=== PATIENT | male | born 1945 | race Caucasian/White ===

== ENCOUNTER 2016-06-16 10:38 | Outpatient (CLI) | payer MEDICARE, OTHER | END 2016-06-16 10:39 | disposition home or self-care (01) | DX: C61 Malignant neoplasm of prostate (principal) | CPT/HCPCS: 78306; A9503 ==

== ENCOUNTER 2016-08-18 16:45 | Outpatient (CLI) | payer MEDICARE, OTHER | END 2016-08-18 16:46 | disposition home or self-care (01) | LOC: LAB.R 16:45 | PROVIDERS: ATTEND Podiatrist | DX: L03.032 Cellulitis of left toe (principal) | CPT/HCPCS: 87070; 87077; 87205 ==

== ENCOUNTER 2016-11-08 09:42 | Emergency (ER) | payer MEDICARE, OTHER ==
[2016-11-08] MEDS ORDERED: ACETAMINOPHEN 325 MG TABLET PO STA (11:04)
[2016-11-08] MEDS ORDERED: LIDOCAINE-EPINEPH-TETRACAINE 3 ML SYRINGE TOP STA (11:04)
--- NOTE | 2016-11-08 11:08 | XRAY Preliminary Report ---
Exam: XR Chest 2 View PA/LAT IMPRESSION: No acute cardiopulmonary abnormality. [facility] SITE ID: [id number]
--- NOTE | 2016-11-08 11:11 | XRAY Report ---
EXAM: CHEST RADIOGRAPHY EXAM DATE: 11/08/2016 10:16 AM. CLINICAL HISTORY: Left chest wall pain after playing golf. COMPARISON: None available. TECHNIQUE: 2 views. FINDINGS: Lungs/Pleura: There is minimal left basilar atelectasis. There is mild asymmetric elevation of the ri ght hemidiaphragm. No pneumothorax or pleural effusion. Mediastinum: Heart and mediastinal contours are unremarkable. There is atherosclerotic calcification in the aortic arch. Other: No acute skeletal abnormalities are appreciated. IMPRESSION: No acute cardiopulmonary abnormality. [facility] Referring Provider Line: [phone] SITE ID: [id number]
[2016-11-08] MEDS ORDERED: ACETAMINOPHEN 325 MG TABLET PO ONE (11:16)
[2016-11-08] MEDS ORDERED: LIDOCAINE-EPINEPH-TETRACAINE 3 ML SYRINGE TOP ONE (11:16)
[2016-11-08] MEDS ORDERED: LIDOCAINE PATCH 5% TOP STA (12:12)
[2016-11-08] MEDS ORDERED: LIDOCAINE PATCH 5% TOP ONE (12:19)
--- NOTE | 2016-11-08 12:37 | ED Physician Documentation ---
History of Present Illness - Stated complaint Stated Complaint: RIB PX,LT ARM - Chief complaint Chief Complaint: General - Additonal information Additional information: hx from pt 71 male on lupron while swinging his golf club last week hel felt focal pain to his ant left chest wall mid clavicular 5th ic pain has contiunued last night/ this AM pain very severe and he could not draw a breath and the pain radiated to his left arm so he wanted to be sure he was not having a heart attack Review of Systems Constitutional: denies: Fever, Chills Cardiac: reports: Chest pain / pressure Respiratory: denies: Dyspnea Musculoskeletal: reports: Extremity pain Endocrine: denies: Easy bruising / bleeding Immunocompromised: denies: Immunocompromised PD PAST MEDICAL HISTORY - Past Medical History Other Past Medical History: metastatic prostatic cancer, - Past Surgical History Past Surgical History: Yes - Present Medications Home Medications: Ambulatory Orders Medication Instructions Recorded Confirmed Ketoconazole 400 mg PO TID 09/03/15 11/08/16 Leuprolide [Lupron] 45 mg IM Q180D 09/03/15 11/08/16 Hydrocortisone 10 mg PO DAILY PM 01/14/16 11/08/16 Hydrocortisone 20 mg PO DAILY MDD In the morning 01/14/16 11/08/16 Lidocaine Patch 5% [Lidoderm Patch] 1 each TOP DAILY PRN #10 patch 11/08/16 - Allergies Allergies/Adverse Reactions: Allergies Allergy/AdvReac Type Severity Reaction Status Date / Time No Known Drug Allergies Allergy Verified 05/26/16 11:30 - Social History Does the pt smoke?: No Smoking Status: Never smoker Does the pt drink ETOH?: Yes Does the pt have substance abuse?: No PD ED PE NORMAL - Vitals Vital signs reviewed: Yes - General General: Alert and oriented X 3 - HEENT HEENT: PERRL - Neck Neck: Supple, no meningeal sign - Cardiac Cardiac: RRR, Other (focal TTP ant L chest midclavicular and 5th IC, no rash no crepitus) - Respiratory Respiratory: No respiratory distress, Clear bilaterally, Other (bt dec floyd L > R and splinting 2/2 pain) - Abdomen Abdomen: Soft, Non tender - Extremities Extremities: No deformity, No edema, No calf tenderness / cord - Neuro Neuro: Alert and oriented X 3 Results - Vitals Vitals: Vital Signs - 24 hr 11/08/16 09:45 Temperature 36.2 C L Heart Rate 72 Respiratory 18 Rate Blood Pressure 204/87 H O2 Saturation 99 Oxygen O2 Source Room air - Labs Labs: Laboratory Tests 11/08/16 12:17 Troponin I < 0.04 - Rads (name of study) CXR Radiology: See rad report (NACPD) Departure - Departure Disposition: 01 Home, Self Care Clinical Impression: Strain of chest wall Qualifiers: Encounter type: initial encounter Qualified Code(s): S29.011A - Strain of muscle and tendon of front wall of thorax, initial encounter Condition: Good Instructions: ED Chest Pain Costochondritis Follow-Up: Nikia Grant MD [Primary Care Provider] - Prescriptions: Lidocaine Patch 5% [Lidoderm Patch] 1 each TOP DAILY PRN #10 patch PRN Reason: Pain Comments: The xray was fine and the test for a heart attack was negative too I have prescribed medications to ease your pain and we gave you a device to help you breathe deeply and keep your lungs from collapsing Please follow up with your PMD for a recheck next week - and get your blood pressure rechecked - it was high today
[2016-11-08 12:58] VITALS: BP 134/86
== END 2016-11-08 13:17 | disposition home or self-care (01) ==
LOC: ED 09:42
DX: S29.011A Strain of muscle and tendon of front wall of thorax, initial encounter (principal); X50.9XXA Other and unspecified overexertion or strenuous movements or postures, initial encounter; Y93.53 Activity, golf; Y92.39 Other specified sports and athletic area as the place of occurrence of the external cause; C61 Malignant neoplasm of prostate; C79.9 Secondary malignant neoplasm of unspecified site; R03.0 Elevated blood-pressure reading, without diagnosis of hypertension
CPT/HCPCS: 36415; 71020; 84484; 99283; 99284; A9270

== ENCOUNTER 2017-02-23 08:39 | Outpatient (CLI) | payer MEDICARE, OTHER ==
--- NOTE | 2017-02-23 11:26 | MRI Report ---
EXAM: MRI LUMBAR SPINE WITHOUT CONTRAST EXAM DATE: 02/23/2017 10:02 AM. CLINICAL HISTORY: Burning pain in both heels. History of prostate carcinoma with metastases. COMPARISON: Prior bone scan 06/16/16. TECHNIQUE: Multiplanar, multisequence T1-weighted and fluid-sensitive sequences of the lumbar spine f rom T12 to S1 without contrast. Other: None. FINDINGS: Spinal Cord: The conus terminates at L1-L2. The conus medullaris and cauda equina are unremarkable. Alignment: There is a 5 mm grade 1 anterolisthesis at L5-S1. Bone Marrow: Five [id number] lumbar vertebral bodies are assumed. No gross fractures or bone les ions. No bone marrow edema. Disk Levels/Facets: T12-L1: Unremarkable. L1-L2: Unremarkable. L2-L3: Unremarkable. L3-L4: Unremarkable. L4-L5: There is a broad-based posterior disk bulge with minimal canal narrowing. There is mild ligame ntum flavum redundancy and mild bilateral facet joint osteoarthritis. There is minimal foraminal narr owing. L5-S1: There is mild canal narrowing secondary to the anterolisthesis and the moderate facet joint os teoarthritis. There is moderate to severe bilateral foraminal narrowing, with compression of both L5 nerve roots. Musculature: Normal. No edema or fatty atrophy. Other: The partially visualized retroperitoneum is unremarkable. IMPRESSION: 1. Grade 1 anterolisthesis at L5-S1 without appreciable pars defects. 2. L4-L5: Mild disk and facet joint degeneration causing minimal canal narrowing.. There is minimal f oraminal narrowing. 3.L5-S1: Malalignment and moderate facet joint osteoarthritis cause mild canal narrowing. There is mo derate to severe bilateral foraminal narrowing, with compression of both L5 nerve roots. Comment: The following findings are so common in adults without low back pain that while we report th eir presence, they must be interpreted with caution and in the context of the clinical situation. (Re ranjana Spencer et al, Spine 2001) Prevalence of findings in patients without low back pain: Disk degeneration (any evidence): 92% Disk desiccation/T2 signal loss: 83% Disk height loss: 56% Disk bulge: 64% Disk protrusion: 32% Annular tear/high intensity zone: 38% [facility] Referring Provider Line: [phone] SITE ID: [id number]
== END 2017-02-23 08:40 | disposition home or self-care (01) ==
LOC: DI 08:39
PROVIDERS: ATTEND Internal Medicine
DX: M47.896 Other spondylosis, lumbar region (principal); M47.897 Other spondylosis, lumbosacral region; M43.17 Spondylolisthesis, lumbosacral region
CPT/HCPCS: 72148

== ENCOUNTER 2017-09-28 10:14 | Outpatient (CLI) | payer MEDICARE, OTHER ==
--- NOTE | 2017-09-28 20:49 | CONSULTATION NOTE ---
Palliative Care Consultation - Referral Referring Provider: Dr. Katrina Benitez Time of Visit: 01-03 Referral setting: [facility] [place] Referral Reason: Pain of neoplastic origin/constipation/met prostate cancer - Information Sources Records reviewed: Previous records reviewed History/Review of Systems obtained from: Patient, Family ( Katerin participating in visit) Exam limitations: Clinical condition (patient with some lethargy and STM issues) - History of Present Illness Brief History of Present Illness: This is a 71-year-old gentleman with metastatic prostate cancer, castration refractory. On Lupron every 3 months. His original diagnosis was in December 2012, had a radical prostatectomy in January, with a Colony score of 9, positive surgical margins and a positive lymph node.He is currently on Xtandi since 02/2017. He has failed by flutamide and ketoconazole in the past. He has had a difficult last few months, presented with a right distal ureteral obstruction from extrinsic mass resulting in right hydronephrosis and stent placement in June. He also presented at that time with rectal pain, unfortunately his colonoscopy was negative. A bone scan during this time also showed focal uptake at T8 vertebral body. He is having increased pain in his legs and back in May, MRI of his spine showed L5-S1 spondylolisthesis with radiating pain to his legs, for which he has been on high-dose gabapentin with only moderate relief, he also received a steroid injection with some improvement. He was getting a work up for back surgery which had to be abandoned in the context of his progressive and aggressive met. prostate cancer. In retrospect looking at the rapid advancement of his cancer concern for metastatic disease in spine as well. As a result of progressive pain patient received another CT of the abdomen and pelvis on 09/16. At this point in time the patient has noted Tini pleural-based nodules in bilateral bases, nonspecific in appearance no pleural effusion. Was found 7 hypodense liver lesions consistent with metastatic disease, and an enlarging lobular mass centered just posterior to the location of the prostate with increased size since June measuring 4.7 x 4.6 x 4.9 with increasing irregular soft tissue that appears to infiltrate/invade the posterior/inferior bladder and abuts and displaces the contour of the rectum, though notes definite invasion is not clearly established. And his soft tissue nodule that was the site of his original right ureter obstruction is slightly larger as well measuring 1.9 x 1.3 with a stent is in place. Palliative care is seen patient for pain control. Patient originally been managed on his gabapentin 900 mg 3 times daily for his lower back pain though this has been increasing and sick Verity. He also presents with a band of pain across his upper thoracic lower lumbar and midthoracic pain. He has significant intensity of pain in his rectal area and pressure as well as discomfort in his groin and pelvic area. He does have radiation and squeezing into his anterior and posterior thigh. As well as some numbness and tingling in his ankles and toes. He had originally tried some hydrocodone back when he was having back pain, had Abandoned this because of constipation. He started last week some Tylenol 3 alternating with ibuprofen, with some only modest improvement and increased constipation and nausea. Given patient's liver metastases and elevated LFTs, acetaminophen and limits her ability to titrate up on the codeine as well as its constipating side effect, patient also has concern for renal insufficiency which has increased over the month, so will discontinue the ibuprofen as well.Patient's severity has been at 7-10, has limited his ability to get in and out of the bed, his gait is shuffled. He does spend most of his time sleeping. He has been smoking CBT and using oil with some lethargy. He has also had significant weight loss of about 25 pounds over the last several months. Reports with poor appetite severe fatigue and ongoing issues with constipation Medical/Surgical History - Past Medical History Respiratory: reports: None Neuro: reports: None Endocrine/Autoimmune: reports: None GI: reports: Chronic constipation, Other (rectal pain) : reports: Other (prostate cancer) Musculoskeletal: reports: Chronic back pain MRSA Hx?: No - Past Surgical History General: reports: Colonoscopy Other past surgical history: prostatectomy; right ureteral stent placement - Substance History Use: Uses substance without health or social issues: Cannabis Social History - Living Situation Living arrangement: At home Living Situation: With spouse/s.o., With family (son and 20 year old grandson live in home as well; shares she has PTSD and social anxiety disorder; discussed how best to work with her) Family History - Family History Family History: Mother: (patient adopted), Father: Medications/Allergies - Medications Home Medications: Ambulatory Orders Medication Instructions Recorded Confirmed Leuprolide [Lupron] 45 mg IM Q180D 09/03/15 09/28/17 Enzalutamide [Xtandi] 1 tab PO TID 03/30/17 09/28/17 Gabapentin 900 mg PO TID 07/27/17 09/30/17 Lisinopril 2.5 mg PO DAILY 07/27/17 09/28/17 Bisacodyl Supp [Dulcolax Supp] 10 mg MN DAILY PRN 09/28/17 09/28/17 Dexamethasone 2 mg PO DAILY 09/28/17 09/28/17 Methadone 2.5 mg PO DAILY MDD titrating 09/28/17 09/28/17 Ondansetron [Ondansetron Odt] 4 mg PO Q6HR PRN 09/28/17 09/28/17 Polyethylene Glycol 3350 [Miralax] 17 gm PO DAILY 09/28/17 09/28/17 Sennosides [Senna] 2 tab PO TID 09/28/17 09/28/17 oxyCODONE [Roxicodone] 5 - 10 tab PO DAILY PRN 09/28/17 09/28/17 - Allergies Allergies/Adverse Reactions: Allergies Allergy/AdvReac Type Severity Reaction Status Date / Time No Known Drug Allergies Allergy Verified 05/26/16 11:30 Review of Systems - Constitutional Constitutional: reports: Fatigue, Weight loss (wieghs 173 down from 200 over last 3 months). denies: Fever - Eyes Eyes: reports: Vision loss - Ears, Nose & Throat Ears, Nose & Throat: reports: Dry mouth - Cardiovascular Cardiovascular: reports: Exertional dyspnea, Decr. exercise tolerance. denies: Chest pain - Respiratory Respiratory: reports: SOB with exertion. denies: Cough - Gastrointestinal Gastrointestinal: reports: Constipation (last BM Wednesday), Nausea (intermittent) , Poor appetite, Early satiety. denies: Reflux/heartburn - Genitourinary Genitourinary: reports: Dysuria (intermiitent), Frequency, Hematuria ( intermittent) - Musculoskeletal Musculoskeletal: reports: Back pain, Stiffness, Limited range of motion, Muscle weakness, Assistive devices (uses cane; encouraged to use walker) - Integumentary Integumentary: reports: Dryness - Neurological Neurological: reports: General weakness, Numbness (bilateral in feet from stenosis) - Psychiatric Psychiatric: denies: Depression, Anxiety - Hematologic/Lymphatic Hematologic/Lymphatic: reports: Recurrent infections (hx of UTIs). denies: Anemia - All Other Systems All Other Systems: reports: Reviewed and negative Physical Exam - Vital Signs Pulse Rate: 82 Respiratory Rate: 18 Blood Pressure: 137/76 - Physical Exam General Appearance: positive: Moderate distress (pain behaviors; difficulty sitting and positioning; walking gingerly), Lethargic Eyes Bilateral: positive: Normal inspection ENT: negative: Oral lesions Neck: positive: No JVD, Trachea midline Cardiovascular: positive: Regular rate & rhythm Respiratory: positive: Breath sounds nml Abdomen: positive: Soft, Nml bowel sounds Skin: positive: Pallor, Dryness Extremities: positive: No pedal edema Neurologic/Psychiatric: positive: Oriented x3, Mood/affect nml, Weakness, Flat affect Palliative Care - POLST Patient has POLST: No Pain: Pain worsening, Location (see hpi) Tiredness/Fatigue: Moderate (4-6) Drowsiness/Sedation: Severe (7-10) Nausea: None Depression: None Anxiety: None Dyspnea: None Anorexia: Severe (7-10), Weight loss Sleep: Variable sleep pattern Constipation: Yes, Opoid induced, Unmanaged Performance Status: Patient uses cane to walk, balance is poor both related to his bilateral peripheral neuropathy as well as his pain. He does have difficulty getting in and out of bed, does have intermittent assistance from his for bathing. She does all the meal prep. Patient has decreased his activity level significantly over the last few weeks related to fatigue, pain, and weakness - Palliative Care Discussion: Patient does understand the seriousness of his illness, reports it has "just exploded". They are waiting final treatment plan from Dr. Benitez whether it will include radiation or not. 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 Focus of this visit was established in report, in addressing high symptom burden, will address advance care planning next visit. Results - Lab Results Lab results reviewed: Yes Impression and Recommendations - Palliative Care Impression: This is a 71-year-old gentleman with metastatic prostate cancer, with rapid progression resulting in severe pain. Patient presents with high symptom burden of anorexia, weight loss, pain and severe fatigue. Palliative care to address pain and symptom management and assist with advanced care planning. Recommendations/Counseling Done: 1. Pain of neoplastic origin. Will discontinue codeine secondary to constipation and nausea affect and limited effectiveness for titration with acetaminophen. Patient initiated on oxycodone 5 mg, instructed to take 1-2 every 3 hours as needed for breakthrough pain. Will initiate methadone for long -acting, patient already with lethargy regarding his CBD use for pain, use of gabapentin, and sensitivity to opioids. Will start at 2.5 mg at bedtime for test dosing, and titrate up every 4-5 days if tolerates. Patient instructed to continue his gabapentin at 900 mg 3 times daily, given the sharp shooting neuropathic component of his pain attributed this point in time to his back pain. Will revisit with oncologist if need to reevaluate if possibly metastatic disease. Could then be a candidate for radiation therapy. 2. Anorexia. This is multifactorial in origin, including low-grade nausea and constipation. Will initiate a low-dose of dexamethasone at 2 mg and consider titrating up to 4 to supplement pain medication management as well. 3. Constipation. Patient instructed to take declot suppository tonight, initiated bowel program of MiraLAX 17 g daily, senna 2 tabs 3 times daily. Counseling done regarding titrating MiraLAX and senna with the principles of "mesh" and "push", using MiraLAX for softening and senna for laxative effect. These instructions were written out for patient and as well as recorded. 4. Nausea. A prescription was provided for ondansetron 4 mg ODT 1 tab every 6 hours as needed for nausea, instructed if has nausea from pain medication to initiate. Teaching done regarding side effects of medication, most likely developed tolerance to the nausea as well as sedation. 5. Metastatic prostate cancer. Patient awaiting final instructions regarding treatment plan. Patient and do appear to have understanding this is only palliative in nature, is quite tearful, patient denies any depression or anxiety at this point in time. 6. Advanced care planning. Patient and quite overwhelmed with high symptom burden and uncertainty of future. Counseling provided regarding the role of palliative care for support and anticipatory guidance. Time Spent: 60 minutes with greater than 50% of this done in counseling regarding use of opioids, counseling for pain and symptom management, and anticipatory guidance
== END 2017-09-28 10:15 | disposition home or self-care (01) ==
LOC: PC 10:14
PROVIDERS: ATTEND Nurse Practitioner Adult Health
DX: Z51.5 Encounter for palliative care (principal); G89.3 Neoplasm related pain (acute) (chronic); C61 Malignant neoplasm of prostate; C78.7 Secondary malignant neoplasm of liver and intrahepatic bile duct; Z79.899 Other long term (current) drug therapy; Z96.0 Presence of urogenital implants; M54.5 Low back pain; G62.9 Polyneuropathy, unspecified; R74.8 Abnormal levels of other serum enzymes; R63.4 Abnormal weight loss; K59.03 Drug induced constipation; T40.2X5A Adverse effect of other opioids, initial encounter; K62.89 Other specified diseases of anus and rectum; M62.81 Muscle weakness (generalized); Z79.891 Long term (current) use of opiate analgesic; R63.0 Anorexia; R53.83 Other fatigue
CPT/HCPCS: 99205

== ENCOUNTER 2017-10-08 10:18 | Outpatient (CLI) | payer MEDICARE, OTHER ==
--- NOTE | 2017-10-08 11:20 | XRAY Report ---
Procedure Date: 10/08/2017 Accession Number: [id number] / [id number] Procedure: XR - Chest 2 View X-Ray CPT Code: 77311 FULL RESULT: EXAM: CHEST RADIOGRAPHY, 2 VIEWS EXAM DATE: 10/08/2017 10:52 AM. CLINICAL HISTORY: 71-year-old male with productive cough and chest pain with deep respiration. COMPARISON: Chest 2 view PA/lateral 11/08/2016. TECHNIQUE: Upright PA and lateral views. FINDINGS: Lungs/Pleura: Poor inspiratory effort with mild hypoventilatory changes and some atelectasis in the lung bases, left greater than right. No infiltrates, effusions or pneumothorax. Mediastinum: Heart size is normal considering body habitus and inspiratory effort. No pulmonary vascular congestion or adenopathy. Other: Trachea is midline. Osseous structures are unremarkable for age. Right-sided urinary tract drain noted. IMPRESSION: Poor inspiratory effort. No pneumonia, CHF or other demonstrated cause for the patient's symptoms. Results discussed directly with attending physician Chasidy Bellamy M.D. by this radiologist at 1121 hrs. [facility]
[2017-10-08] MEDS ORDERED: SODIUM CHLORIDE FLUSH 0.9% 10 ML SYRINGE ONE (12:15)
[2017-10-08] MEDS ORDERED: SODIUM CHLORIDE 0.9% 0 ML IV ONE (12:15)
== END 2017-10-08 10:19 | disposition home or self-care (01) ==
LOC: DI 10:18
PROVIDERS: ATTEND Nurse Practitioner Adult Health
DX: R05 Cough (principal); R07.1 Chest pain on breathing; Z85.46 Personal history of malignant neoplasm of prostate
CPT/HCPCS: 71046

== ENCOUNTER 2017-10-08 10:44 | Outpatient (CLI) | payer MEDICARE, OTHER ==
--- NOTE | 2017-10-08 12:26 | CONSULTATION NOTE ---
Palliative Care Follow Up - Referral Referring Provider: Dr. Katrina Benitez Time of Visit: Referral setting: 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 Had chosen to try chemotherapy over hospice care, but has continued to have severe pain, sedation from medications, intermittent constipation, and weight loss. Patient unable to oversee his medication, Katerin with high anxiety and finding this overwhelming as well. Patient's pain has escalated to needing 8-10 oxycodone 5 mg/ with relief for short periods, titrating methadone up in attempt to address long acting component, currently on 5 mg BID (equianalgesic is 20 mg/total). Has been on gabapentin 900 mg TID since dx with severe stenosis over last few months. Has been having difficulty with pain getting out of bed, ambulating, and new are of pain bilateral chest rib cage pain, had c/o of cough, and more phelgm. Had called yesterday, reports had low temp, patient on phone without symptoms other than respiratory, no fever or chills, encouraged to get chest xray, agreed to get prior to appointment today. Patient presents with low b/p of 72/52, p 106, reports has been low for a while, in review of medication still getting lisinopril 20 mg at bedtime. Patient quite pale, diaphoretic, lethargic, but very adamant does not want to go to ED, though recommended for support. Agreed to get fluids, will get labs as well. Patient took yesterday methadone 5 mg BID, reduced gabapentin 300 mg at 1500, and 600 mg at bedtime, had held oxycodone to one tab yesterday, had been doing some better with pain but now functionally legs wobbly, hands with tremors and currently severe pain in sitting and upper ribs still. Repositioned in chemo chair with some relief. addendum:[id number] labs show dramatic drop in Hct and acute kidney injury, discussed my concerns with Dr. Gold. Patient responding to fluids with b/p 117/62 but needs to be evaluated given the findings, agreed to go to ED at this time. Social History - Living Situation Living arrangement: At home Living Situation: With spouse/s.o., With family (grandson has been helping him get on and off toilet and walk in small cabin/home setting. Declined hospital bed) Medications/Allergies - Medications Home Medications: Ambulatory Orders Medication Instructions Recorded Confirmed Leuprolide [Lupron] 45 mg IM Q180D 09/03/15 10/08/17 Enzalutamide [Xtandi] 1 tab PO TID 03/30/17 10/08/17 Gabapentin 300 mg PO TID 07/27/17 10/08/17 Bisacodyl Supp [Dulcolax Supp] 10 mg [place] DAILY PRN 09/28/17 10/08/17 Dexamethasone 4 mg PO DAILY 09/28/17 10/08/17 Methadone 5 mg PO BID MDD titrating 09/28/17 10/08/17 Ondansetron [Ondansetron Odt] 4 mg PO Q6HR PRN 09/28/17 10/08/17 Polyethylene Glycol 3350 [Miralax] 17 gm PO DAILY 09/28/17 10/08/17 Sennosides [Senna] 2 tab PO TID 09/28/17 10/08/17 oxyCODONE [Roxicodone] 5 - 10 tab PO DAILY PRN 09/28/17 10/08/17 - Allergies Allergies/Adverse Reactions: Allergies Allergy/AdvReac Type Severity Reaction Status Date / Time No Known Drug Allergies Allergy Verified 05/26/16 11:30 Review of Systems - Constitutional Constitutional: reports: Fatigue, Weakness, Poor appetite, Weight loss - Cardiovascular Cardiovascular: reports: Chest pain (bilateral rib pain), Exertional dyspnea, Decr. exercise tolerance - Respiratory Respiratory: reports: Cough, SOB with exertion - Gastrointestinal Gastrointestinal: reports: Constipation (improved), Poor appetite, Early satiety. denies: Nausea, Vomiting - Musculoskeletal Musculoskeletal: reports: Muscle pain, Back pain, Muscle aches, Stiffness, Muscle weakness, Transfer issues (needing wheelchair today) - Integumentary Integumentary: reports: Dryness - Neurological Neurological: reports: General weakness, Memory problems, Slurred speech, Other (mild tremors) - Psychiatric Psychiatric: reports: Hallucinations - All Other Systems All Other Systems: reports: Reviewed and negative (limited given patient's lethargy) Physical Exam - Vital Signs Temperature: 36.4 C Pulse Rate: 106 Respiratory Rate: 16 O2 Saturation: 93 Blood Pressure: 72/52 - Physical Exam General Appearance: positive: Mild distress (very weak needed wheelchair), Lethargic Eyes Bilateral: positive: Other (patient with eyes closed most of exam) Neck: positive: No JVD, Trachea midline Cardiovascular: positive: Tachycardia Respiratory: positive: Diminished in bases (left greater than right). negative : Wheezes, Rales, Rhonchi Abdomen: positive: Nml bowel sounds Skin: positive: Pallor, Diaphoresis, Dryness Extremities: positive: No pedal edema Neurologic/Psychiatric: positive: Disoriented to time, Weakness, Slurred/abnml speech, Flat affect Palliative Care - POLST Patient has POLST: No Pain: Pain worsening, Location (pain levels continue to be severe; pain now in chest/epigastric area; lower back and rectal area; increased pain with sitting has been mostly in anitgravity chair at home; has been sleeping but awakens in severe pain.) Tiredness/Fatigue: Severe (7-10) Drowsiness/Sedation: Severe (7-10) Performance Status: patient has had declining functional status for several weeks, most severe over last few days - Palliative Care Discussion: Patient doing poorly; does not appear to have much insight into this. Has been encouraged over last several days to go to ED, has steadfastly refused. very anxious, stressed and overwhelmed, and tearful. Asked about hospice, reviewed briefly support and team, but this is only available if patient declines chemotherapy. At this time they both want to move forward with this. Did agree to get fluids and labs in hopes to improve situation. Given patient's current confusion, did not address further advanced care planning nor follow up on chemotherapy teaching. Results - Lab Results Lab results reviewed: Yes Impression and Recommendations - Palliative Care Impression: This is a 71 year old gentleman dx with an aggressive small neuroendocrine tumor , orignially treated for prostate cancer, with acute decline over last several months and escalating pain. Reticent to access medical system, but has not defined goals of care other than wanted to move forward with chemotherapy. Given acute findings of anemia, dehydration, and JUAN ALBERTO transitioned to ED for further work up, did agree to hospitalization if needed. Palliative care to provide support for pain and symptom management and define goals of care. Will follow inpatient or on discharge. Recommendations/Counseling Done: 1. Lethary, mulitfactorial in origin. Patient with JUAN ALBERTO and on high doses of gabapentin 900 mg tid, did decrease yesterday but need to taper off or decrease to 300 mg TID related to seizure risk. Patient also initiated on low dose methadone, currently on 5 mg BID had been reportedly using up to 10-12 tabs oxycodone 5 mg, held yesterday with reports of decline and lethargy. Goal has been to taper off gabapentin and simplify regimen with long acting methadone/ short acting oxycodone. 2. JUAN ALBERTO. brought meds in, med list listed lisinopril 2.5 mg daily, bottle and what he has been getting is 20 mg nightly. 3. Neuroendocrine tumor. Patient at this time goal is to pursue treatment, will need to be more stable prior initiating, Sabrina AUSTIN will reschedule teaching appointment. Patient was due to get portacath next week and start week after. 4. Pain of neoplastic origin. Patient presents still with severe pain, will need to continue to work with short acting medication oxycodone has been effective, will keep current methadone dosing, can hold if needed but given the severity of his illness and pain and home situation, adds to the complexity to find the right balance. 5. Advanced care planning. Patient does not have POLST, nor documented wishes at this time. very anxious regarding patient's impending decline and illness, will continue to work to support both moving forward. Time Spent: 75 minutes with greater than 50% of this done in counseling regarding current acute status, anticipatory guidance and coordination with ED.
== END 2017-10-08 10:45 | disposition home or self-care (01) ==
LOC: PC 10:44
PROVIDERS: ATTEND Nurse Practitioner Adult Health
DX: Z51.5 Encounter for palliative care (principal); R53.83 Other fatigue; N17.9 Acute kidney failure, unspecified; G89.3 Neoplasm related pain (acute) (chronic); C7B.00 Secondary carcinoid tumors, unspecified site; K59.00 Constipation, unspecified; Z79.891 Long term (current) use of opiate analgesic; M62.81 Muscle weakness (generalized)
CPT/HCPCS: 99215

== ENCOUNTER 2017-10-08 14:38 | Emergency (ER) | payer MEDICARE, OTHER ==
[2017-10-08] MEDS ORDERED: DEXAMETHASONE 10 MG/ML VIAL IVP STA (16:05)
--- NOTE | 2017-10-08 16:07 | ED Physician Documentation ---
History of Present Illness - Stated complaint Stated Complaint: CONFUSION/LOW BLOOD PRESSURE - Chief complaint Chief Complaint: General - History obtained from History obtained from: Patient, Family - History of Present Illness Timing: How many days ago (5) - Additonal information Additional information: 71-year-old male with a history of refractory prostate cancer has developed a second cancer small cell cancer that is throughout his body. He is having pain associated with this and he has had some of his medications adjusted he has been started on some methadone and he is on some gabapentin 3 times a day. He is [place] today [place] [facility] and sent to the emergency department for evaluation. He was given some IV fluids there and he does appear dehydrated with acute renal failure. Review of Systems Constitutional: reports: Chills. denies: Fever Eyes: denies: Decreased vision Ears: denies: Ear pain Nose: denies: Congestion Throat: denies: Sore throat Cardiac: denies: Chest pain / pressure, Palpitations Respiratory: reports: Dyspnea. denies: Cough GI: reports: Abdominal Pain, Nausea. denies: Vomiting, Constipation, Diarrhea : denies: Dysuria, Frequency Skin: denies: Rash Musculoskeletal: reports: Back pain. denies: Neck pain Neurologic: reports: Generalized weakness, Altered mental status. denies: Focal weakness, Numbness PD PAST MEDICAL HISTORY - Past Medical History Respiratory: None Endocrine/Autoimmune: None GI: Chronic constipation, Other : Other Musculoskeletal: Chronic back pain Other Past Medical History: Prostate Ca with mets. - Past Surgical History Past Surgical History: Yes General: Colonoscopy - Present Medications Home Medications: Ambulatory Orders Medication Instructions Recorded Confirmed Leuprolide [Lupron] 45 mg IM Q180D 09/03/15 10/08/17 Enzalutamide [Xtandi] 1 tab PO TID 03/30/17 10/08/17 Gabapentin 300 mg PO TID 07/27/17 10/08/17 Bisacodyl Supp [Dulcolax Supp] 10 mg [place] DAILY PRN 09/28/17 10/08/17 Dexamethasone 4 mg PO DAILY 09/28/17 10/08/17 Methadone 5 mg PO BID MDD titrating 09/28/17 10/08/17 Ondansetron [Ondansetron Odt] 4 mg PO Q6HR PRN 09/28/17 10/08/17 Polyethylene Glycol 3350 [Miralax] 17 gm PO DAILY 09/28/17 10/08/17 Sennosides [Senna] 2 tab PO TID 09/28/17 10/08/17 oxyCODONE [Roxicodone] 5 - 10 tab PO DAILY PRN 09/28/17 10/08/17 - Allergies Allergies/Adverse Reactions: Allergies Allergy/AdvReac Type Severity Reaction Status Date / Time No Known Drug Allergies Allergy Verified 05/26/16 11:30 - Social History Does the pt smoke?: No Smoking Status: Never smoker Does the pt drink ETOH?: Yes Does the pt have substance abuse?: No - Immunizations Immunizations are current?: Yes - POLST Patient has POLST: No PD ED PE NORMAL - Vitals Vital signs reviewed: Yes (hypothermic) - General General: Well developed/nourished, Other (The patient is pale, and is slow to respond. There is delay in execution of motor commands. ) - HEENT HEENT: Atraumatic, PERRL, EOMI, Other (pale conjunctiva) - Neck Neck: Supple, no meningeal sign, No bony TTP - Cardiac Cardiac: RRR, No murmur - Respiratory Respiratory: No respiratory distress, Clear bilaterally - Abdomen Abdomen: Soft, Non tender - Back Back: No CVA TTP, No spinal TTP - Derm Derm: Normal color, Warm and dry, No rash - Extremities Extremities: No deformity, No edema - Neuro Neuro: Alert and oriented X 3, call circuit worker 2-12 intact, No motor deficit, No sensory deficit, Normal speech Eye Opening: Spontaneous Motor: Obeys Commands Verbal: Oriented GCS Score: 15 - Psych Psych: Other (mood is withdrawn and the affect is flat. ) Results - Vitals Vitals: Vital Signs - 24 hr 10/08/17 10/08/17 14:44 16:22 Temperature 35.8 C L Heart Rate 97 85 Respiratory 18 16 Rate Blood Pressure 118/65 114/76 O2 Saturation 93 93 Oxygen O2 Source Room air - Labs Labs: Laboratory Tests 10/08/17 10/08/17 15:42 17:50 Sodium 129 L Potassium 4.6 Chloride 96 L Carbon Dioxide 20 L Anion Gap 13.0 BUN 52 H Creatinine 2.6 H Estimated GFR (MDRD) 25 L Glucose 124 H Calcium 9.6 Urine Color YELLOW Urine Clarity CLOUDY Urine pH 5.5 Ur Specific [place] 1.025 Urine Protein 30 H Urine Glucose (UA) NEGATIVE Urine Ketones NEGATIVE Urine Occult Blood LARGE H Urine Nitrite NEGATIVE Urine Bilirubin NEGATIVE Urine Urobilinogen 0.2 (NORMAL) Ur Leukocyte Esterase NEGATIVE Urine RBC 0-5 Urine WBC 0-3 Ur Squamous Epith Cells MOD Squamous H Amorphous Sediment Few Urine Bacteria Few Urine Casts 6-10 Fine Granular Ur Microscopic Review INDICATED Urine Culture Comments NOT INDICATED Procedures - Bedside sono Bedside sono by EMP: With use of bedside ultrasound the right kidney is imaged and there is evidence of obvious hydronephrosis. The left kidney is imaged and there is no hydro and the kidney is sonographically non-tender. - IVC sono (time) 1600 Bedside IVC sono: IVC measures (cm) (0.98 after 1.5liters indicates continued dehydration and a persistent deficit of 1.5 liters.), Significant dehydration PD MEDICAL DECISION MAKING - ED course Complexity details: reviewed old records, reviewed results, re-evaluated patient , considered differential, d/w patient, d/w family ED course: 71-year-old male who has had prostate cancer and March 2013 has now developed a new cancer. He has been diagnosed with a high-grade neuroendocrine carcinoma of the small cell type after a liver biopsy. He has had in place for about 3 months the stent into the right ureter for a mass compressing the right ureter. This stent appears to have failed on examination with bedside ultrasound. Goals for the patient and her palliation and a longer life. He has a short life expectancy without treatment of 1-2 months and may be up to 1 year with chemotherapy. He is planning to pursue chemotherapy and planning to pursue a port placement in this coming week and he will have to go to [facility] to do this. He is sent to the emergency department today after it appeared that he has significant change in renal function a decrease in his red blood cell counts extreme weakness and a change in his mental function. He has received some fluid [place] [facility] [place] and requires more fluid here. He is administered a total of 2 L of saline and 10 mg of dexamethasone. He has improvement in his execution of motor commands and is able to get in and out of the bed by himself although slowly. His mentation is markedly improved. He has had some changes to his pain medication regimen he is started on methadone and he is decreasing his dose of gabapentin. I did consult Dr. Stark the urologist insulation and flooring assembler for Dr. ontiveros and he indicated that it is unlikely that the patient's change in BUN and creatinine are related to failure of the stent and are more likely related to the level of dehydration. He recommended we check the left kidney for hydro-and as long as that was not an issue there was no specific urgency to addressing the stent on the right side. The patient is not in the transfusion threshold with his hematocrit at 27.5 but I suspect he may need blood relatively soon. A repeat of his BUN and creatinine at the conclusion of treatment indicate improvement in both and I suspect he will have further improvement with continued hydration. Have encouraged the patient to return to the emergency department for any failure at home regardless of the hour. He will continue to decrease his gabapentin and I have encouraged the patient to use oxycodone for breakthrough pain on top of his methadone. - Sepsis Event Vital Signs: Vital Signs - 24 hr 10/08/17 10/08/17 14:44 16:22 Temperature 35.8 C L Heart Rate 97 85 Respiratory 18 16 Rate Blood Pressure 118/65 114/76 O2 Saturation 93 93 Oxygen O2 Source Room air Departure - Departure Disposition: 01 Home, Self Care Clinical Impression: Dehydration, Acute kidney injury superimposed on chronic kidney disease Anemia Qualifiers: Anemia type: unspecified type Qualified Code(s): D64.9 - Anemia, unspecified Condition: Stable Instructions: ED Dehydration, ED Anemia Type Not Specified Follow-Up: LATISHA MORROW MD [Primary Care Provider] - Comments: Today in the emergency department we discovered that you are significantly dehydrated and this did cause some acute kidney injury. This should improve with continued hydration. Today it appears that the stent to the right kidney has failed and the left kidney appears to be functioning properly. Stay hydrated and your renal function should return to nearly normal. Today it appears you are anemic. You may need blood and if you began to develop more symptoms return to the emergency department for reevaluation and potential transfusion. Today it appears your pain is not adequately entirely controlled. I recommend you use the oxycodone in addition to the methadone for pain not controlled by the methadone. Follow-up with Chasidy Bellamy for further assistance with your pain control and to make a connection to get your port placed. We are here 24 hours a day to assist you for urgent problems. If you are failing at home call the ambulance to come to the hospital.
[2017-10-08 16:13] LABS: BILIRUBIN,URINE NEGATIVE (NEGATIVE); GLUCOSE, URINE (UA) NEGATIVE (NEGATIVE); KETONES,URINE (UA) NEGATIVE (NEGATIVE); LEUKOCYTE ESTERASE, URINE NEGATIVE (NEGATIVE); NITRITE,URINE NEGATIVE (NEGATIVE); OCCULT BLOOD,URINE LARGE (NEGATIVE); PH,URINE 5.5 PH (5.0-7.5); PROTEIN,URINE 30 mg/dL (NEGATIVE); UROBILINOGEN,URINE 0.2 (NORMAL) E.U./dL (NORMAL)
[2017-10-08 16:27] LABS: CLARITY,URINE CLOUDY (CLEAR)
[2017-10-08 16:34] LABS: AMORPHOUS SEDIMENT,UR Few /LPF; BACTERIA,URINE Few /HPF (None Seen); CASTS, URINE 6-10 Fine Granular /LPF; RBC,URINE 0-5 /HPF (0-5); SQUAMOUS EPITHELIAL CELL,UR MOD Squamous (<= Few)
[2017-10-08 18:05] LABS: CALCIUM 9.6 mg/dL (8.5-10.3); CREATININE 2.6 mg/dL (0.6-1.2)
[2017-10-08 18:52] VITALS: BP 141/66
== END 2017-10-08 19:19 | disposition home or self-care (01) ==
LOC: ED 14:38
DX: E86.0 Dehydration (principal); N17.9 Acute kidney failure, unspecified; N18.9 Chronic kidney disease, unspecified; D64.9 Anemia, unspecified; Z85.46 Personal history of malignant neoplasm of prostate; C7A.8 Other malignant neuroendocrine tumors
CPT/HCPCS: 80048; 81001; 81003; 87086; 99283

== ENCOUNTER 2017-10-09 01:41 | Outpatient (CLI) | payer MEDICARE, OTHER | END 2017-10-09 01:42 | disposition critical access hospital (66) | LOC: EMS 01:41 | PROVIDERS: ATTEND Surgery | DX: R53.1 Weakness (principal); R19.7 Diarrhea, unspecified | CPT/HCPCS: A0425; A0427 ==

== ENCOUNTER 2017-10-09 02:00 | Inpatient (IN) | payer MEDICARE, OTHER ==
[2017-10-09] MEDS ORDERED: SODIUM CHLORIDE 0.9% 1,000 ML IV ONE ×2 (02:10→04:16)
--- NOTE | 2017-10-09 02:21 | ED Physician Documentation ---
History of Present Illness - Stated complaint Stated Complaint: WEAK - Chief complaint Chief Complaint: Neuro - History obtained from History obtained from: Patient, EMS - History of Present Illness Timing: Yesterday - Additonal information Additional information: Patient is a 71 year old male with a history of metastatic neuroendocrine tumor who is presenting to the emergency department for dehydration and lethargy. According to ems, family and previous notes patient was seen at the [facility] [place] clinic earlier on wednesday. At that time patient was found to be severely dehydrated and anemic. Patient was sent to the emergency department for evaluation. While in the emergency department patient was treated with two liters of fluid and was feeling a bit better and went home. states that the patient had a large episode of diarrhea today so she brought the patient back in for evaluation. Of note they have also been adjusting his pain medications, increasing his methadone levels. Patient is currently under the treatment of a palliative nurse, with a life expectancy of 1-3 months but they are considering a port and chemotherapy. Review of Systems Unable to obtain: AMS, Confused PD PAST MEDICAL HISTORY - Past Medical History Respiratory: None Endocrine/Autoimmune: None GI: Chronic constipation, Other : Other Musculoskeletal: Chronic back pain Other Past Medical History: prostate ca. - Past Surgical History Past Surgical History: Yes General: Colonoscopy - Present Medications Home Medications: Ambulatory Orders Medication Instructions Recorded Confirmed Leuprolide [Lupron] 45 mg IM Q180D 09/03/15 10/08/17 Enzalutamide [Xtandi] 1 tab PO TID 03/30/17 10/08/17 Gabapentin 300 mg PO TID 07/27/17 10/08/17 Bisacodyl Supp [Dulcolax Supp] 10 mg [place] DAILY PRN 09/28/17 10/08/17 Dexamethasone 4 mg PO DAILY 09/28/17 10/08/17 Methadone 5 mg PO BID MDD titrating 09/28/17 10/08/17 Ondansetron [Ondansetron Odt] 4 mg PO Q6HR PRN 09/28/17 10/08/17 Polyethylene Glycol 3350 [Miralax] 17 gm PO DAILY 09/28/17 10/08/17 Sennosides [Senna] 2 tab PO TID 09/28/17 10/08/17 oxyCODONE [Roxicodone] 5 - 10 tab PO DAILY PRN 09/28/17 10/08/17 - Allergies Allergies/Adverse Reactions: Allergies Allergy/AdvReac Type Severity Reaction Status Date / Time No Known Drug Allergies Allergy Verified 05/26/16 11:30 - Social History Does the pt smoke?: No Smoking Status: Never smoker Does the pt drink ETOH?: Yes Does the pt have substance abuse?: No - Immunizations Immunizations are current?: Yes - POLST Patient has POLST: No PD ED PE NORMAL - Cardiac Cardiac: RRR - Respiratory Respiratory: No respiratory distress PD ED PE EXPANDED - General General: Lethargic - HEENT HEENT: Dry mucous membranes - Abdomen Abdomen: Tender to palpation, Generalized/diffuse - Rectal Rectal: Heme Occult Neg - QC+, Chief Librarian Circulation Department present - Neuro Neuro: Confused, Lethargic Results - Vitals Vitals: Vital Signs - 24 hr 10/09/17 10/09/17 10/09/17 02:03 02:55 03:49 Temperature 35.9 C L Heart Rate 108 H 92 99 Respiratory 25 H 22 20 Rate Blood Pressure 122/69 117/68 133/68 H O2 Saturation 96 99 96 Oxygen O2 Source Room air - Labs Labs: Laboratory Tests 10/09/17 10/09/17 10/09/17 02:30 02:30 02:30 WBC 6.0 RBC 2.93 L Hgb 8.8 L Hct 25.6 L MCV 87.4 MCH 30.2 MCHC 34.5 RDW 14.9 Plt Count 322 MPV 7.5 Neut # (Auto) Not Reportable Lymph # (Auto) Not Reportable [place] # (Auto) Not Reportable Eos # (Auto) Not Reportable Baso # (Auto) Not Reportable Absolute Nucleated RBC Not Reportable Total Counted 100 Band Neuts % (Manual) 33 H Abnorm Lymph % (Manual) 0 Metamyelocytes % 3 H Nucleated RBC % Not Reportable Neutrophils # (Manual) 4.8 Lymphocytes # (Manual) 0.7 L Monocytes # (Manual) 0.4 Eosinophils # (Manual) 0.0 Basophils # (Manual) 0.0 Differential Comment MANUAL DIFFERENTIAL Platelet Estimate NORMAL (130-450,000) Platelet Morphology NORMAL APPEARANCE RBC Morph Micro Appear NORMAL APPEARANCE Sodium 131 L Potassium 4.4 Chloride 99 L Carbon Dioxide 19 L Anion Gap 13.0 BUN 56 H Creatinine 2.3 H Estimated GFR (MDRD) 28 L Glucose 117 H Lactic Acid Calcium 9.5 Phosphorus 4.6 Magnesium 2.3 Total Bilirubin 0.5 AST 38 ALT 16 Alkaline Phosphatase 144 H Troponin I < 0.04 Total Protein 6.7 Albumin 2.4 L Globulin 4.3 H Albumin/Globulin Ratio 0.6 L Lipase 73 H 10/09/17 02:30 WBC RBC Hgb Hct MCV MCH MCHC RDW Plt Count MPV Neut # (Auto) Lymph # (Auto) [place] # (Auto) Eos # (Auto) Baso # (Auto) Absolute Nucleated RBC Total Counted Band Neuts % (Manual) Abnorm Lymph % (Manual) Metamyelocytes % Nucleated RBC % Neutrophils # (Manual) Lymphocytes # (Manual) Monocytes # (Manual) Eosinophils # (Manual) Basophils # (Manual) Differential Comment Platelet Estimate Platelet Morphology RBC Morph Micro Appear Sodium Potassium Chloride Carbon Dioxide Anion Gap BUN Creatinine Estimated GFR (MDRD) Glucose Lactic Acid 1.6 Calcium Phosphorus Magnesium Total Bilirubin AST ALT Alkaline Phosphatase Troponin I Total Protein Albumin Globulin Albumin/Globulin Ratio Lipase PD MEDICAL DECISION MAKING - ED course Complexity details: reviewed old records, reviewed results, re-evaluated patient , considered differential, d/w patient, d/w family ED course: Patient was seen and examined at bedside. IV access was gained and labs were drawn. Patient was started on a fluid bolus. Previous notes were reviewed. Case was discussed with the . Patient was arousable but somnolent. Patient was still found to be dehydrated but there was likely also a component of medication overdose. rectal exam was performed and guaic was negative. Case was discussed with the hospitalist and patient was admitted for further evaluation and care. - Sepsis Event Vital Signs: Vital Signs - 24 hr 10/09/17 10/09/17 10/09/17 02:03 02:55 03:49 Temperature 35.9 C L Heart Rate 108 H 92 99 Respiratory 25 H 22 20 Rate Blood Pressure 122/69 117/68 133/68 H O2 Saturation 96 99 96 Oxygen O2 Source Room air Departure - Departure Disposition: ED Place in Observation Clinical Impression: Dehydration, Anemia Condition: Stable
[2017-10-09 02:49] LABS: BASOPHILS % (AUTO) 0.2 %; EOSINOPHILS % (AUTO) 0.2 %; HGB - HEMOGLOBIN 8.8 g/dL (14.0-18.0); LYMPHOCYTES % (AUTO) 10.4 %; MEAN CORPUSCULAR HEMOGLOBIN 30.2 pg (27.0-31.0); MEAN CORPUSCULAR HGB CONC 34.5 g/dL (32.0-36.0); MEAN CORPUSCULAR VOLUME 87.4 fL (80.0-94.0); MEAN PLATELET VOLUME 7.5 fL (7.4-11.4); MONOCYTES % (AUTO) 8.9 %; NEUTROPHILS % (AUTO) 80.3 %; PLT - PLATELET COUNT 322 10^3/uL (130-450); RED BLOOD COUNT 2.93 10^6/uL (4.70-6.10); RED CELL DISTRIBUTION WIDTH 14.9 % (12.0-15.0)
[2017-10-09 02:50] LABS: ALBUMIN 2.4 g/dL (3.2-5.5); ALBUMIN/GLOBULIN RATIO 0.6 (1.0-2.2); BILIRUBIN,TOTAL 0.5 mg/dL (0.2-1.0); CALCIUM 9.5 mg/dL (8.5-10.3); CREATININE 2.3 mg/dL (0.6-1.2); MAGNESIUM 2.3 mg/dL (1.7-2.8); PHOSPHORUS 4.6 mg/dL (2.5-4.6); TOTAL PROTEIN 6.7 g/dL (6.7-8.2)
[2017-10-09 02:54] LABS: ABNORMAL LYMPHS % (MANUAL) 0 %
[2017-10-09 03:24] LABS: BAND NEUTROPHILS % (MANUAL) 33 %; DIFFERENTIAL COMMENT MANUAL DIFFERENTIAL; LYMPHOCYTES # (MANUAL) 0.7 10^3/uL (1.5-3.5); LYMPHOCYTES % (MANUAL) 11 %; METAMYELOCYTES % (MANUAL) 3 %; MONOCYTES # (MANUAL) 0.4 10^3/uL (0.0-1.0); NEUTROPHILS # (MANUAL) 4.8 10^3/uL (1.5-6.6); NEUTROPHILS % (MANUAL) 47 %; PLATELET ESTIMATE, MANUAL NORMAL (130-450,000) (NORMAL); PLATELET MORPHOLOGY NORMAL APPEARANCE (NORMAL); RBC MORPHOLOGY (MULTIPLE) NORMAL APPEARANCE (NORMAL)
[2017-10-09] MEDS ORDERED: SODIUM CHLORIDE FLUSH 0.9% 10 ML SYRINGE IVP PRN (04:27)
[2017-10-09] MEDS ORDERED: ONDANSETRON ODT 4 MG TABLET PO PRN (04:31)
[2017-10-09 04:36] LABS: BILIRUBIN,URINE NEGATIVE (NEGATIVE); GLUCOSE, URINE (UA) NEGATIVE (NEGATIVE); KETONES,URINE (UA) NEGATIVE (NEGATIVE); LEUKOCYTE ESTERASE, URINE NEGATIVE (NEGATIVE); NITRITE,URINE NEGATIVE (NEGATIVE); OCCULT BLOOD,URINE MODERATE (NEGATIVE); PROTEIN,URINE 30 mg/dL (NEGATIVE); UROBILINOGEN,URINE 0.2 (NORMAL) E.U./dL (NORMAL)
[2017-10-09 04:45] LABS: BACTERIA,URINE None Seen /HPF (None Seen); CLARITY,URINE SL. CLOUDY (CLEAR); SQUAMOUS EPITHELIAL CELL,UR FEW Squamous (<= Few)
[2017-10-09] MEDS ORDERED: METHADONE 5 MG TABLET PO SCH ×4 (06:00→21:00)
[2017-10-09 06:22] LABS: HGB - HEMOGLOBIN 9.6 g/dL (14.0-18.0); MEAN CORPUSCULAR HEMOGLOBIN 29.6 pg (27.0-31.0); MEAN CORPUSCULAR HGB CONC 33.3 g/dL (32.0-36.0); MEAN CORPUSCULAR VOLUME 88.9 fL (80.0-94.0); MEAN PLATELET VOLUME 7.6 fL (7.4-11.4); RED BLOOD COUNT 3.23 10^6/uL (4.70-6.10); RED CELL DISTRIBUTION WIDTH 15.1 % (12.0-15.0)
[2017-10-09 06:27] LABS: CALCIUM 9.5 mg/dL (8.5-10.3); CREATININE 2.2 mg/dL (0.6-1.2)
--- NOTE | 2017-10-09 06:30 | HISTORY & PHYSICAL EXAMINATION ---
Chief Complaint - Chief Complaint Chief Complaint: weakness and confusion History of Present Illness - Admitted From Admitted From:: Home - History Obtained From History obtained from: patient, pt's , ED physician - History of Present Illness HPI Comment/Other: Mr. Rafael Mishra is a very pleasant but unfortunate 71-year-old white male who has a history significant for metastatic prostate cancer for which she has been treated at the [facility]. Unfortunately about a week ago he was diagnosed with a second aggressive cancer , not related to the prostate cancer, which is now in his liver and kidneys. Over the last few days the patient has been having diarrhea and has had decreased oral intake of fluids, and he has been becoming weaker daily. He came to the emergency department with complaints of weakness earlier today was found to be hypotensive and very dehydrated. He was rehydrated and sent home with a caution to return if he should continue to feel weak or should his diarrhea persist. Of note is that the patient has not taken any Lomotil or Imodium for the diarrhea. The patient did go home but continued to feel weak and the diarrhea did continue so he came back to the emergency department. On presentation to the emergency department this evening patient was found to have an acutely elevated creatinine and his hemoglobin has dropped significantly in just 5 weeks, going from 14.3 to 8.8 on admission. It was therefore felt to be prudent to bring the patient in to the hospital, place him in an observation bed, where he may be rehydrated and his electrolyte abnormalities may be corrected. 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 The patient was adopted and has no knowledge of his family history. Living arrangement: At home Living Situation: With family - Substance History Use: Uses substance without health or social issues: Cannabis Abuse: Recurrent use of substance despite neg consequences: NONE Dependence: Experiences withdrawal or developed tolerances: NONE - POLST Patient has POLST: No POLST Status: Full Code Meds/Allgy - Home Medications Home Medications: Ambulatory Orders Medication Instructions Recorded Confirmed Leuprolide [Lupron] 45 mg IM Q180D 09/03/15 10/08/17 Enzalutamide [Xtandi] 1 tab PO TID 03/30/17 10/08/17 Gabapentin 300 mg PO TID 07/27/17 10/08/17 Bisacodyl Supp [Dulcolax Supp] 10 mg OH DAILY PRN 09/28/17 10/08/17 Dexamethasone 4 mg PO DAILY 09/28/17 10/08/17 Methadone 5 mg PO BID MDD titrating 09/28/17 10/08/17 Ondansetron [Ondansetron Odt] 4 mg PO Q6HR PRN 09/28/17 10/08/17 Polyethylene Glycol 3350 [Miralax] 17 gm PO DAILY 09/28/17 10/08/17 Sennosides [Senna] 2 tab PO TID 09/28/17 10/08/17 oxyCODONE [Roxicodone] 5 - 10 tab PO DAILY PRN 09/28/17 10/08/17 - Allergies Allergies/Adverse Reactions: Allergies Allergy/AdvReac Type Severity Reaction Status Date / Time No Known Drug Allergies Allergy Verified 05/26/16 11:30 Review of Systems - Constitutional Constitutional: reports: Fatigue, Malaise, Weakness, Poor appetite, Weight loss. denies: Fever, Chills, Night sweats - Eyes Eyes: denies: Pain, Irritation, Amaurosis, Blurred vision, Dipolpia - Ears, Nose & Throat Ears, Nose & Throat: denies: Ear pain, Hearing loss, Hearing aids, Tinnitus, Vertigo, Nasal pain, Nasal discharge - Cardiovascular Cariovascular: reports: Lightheadedness, Exertional dyspnea, Decr. exercise tolerance. denies: Irregular heart rate, Palpitations, Chest pain, Edema, Syncope - Respiratory Respiratory: reports: SOB with exertion. denies: Cough, Sputum production, Wheezing, Snoring, Hemoptysis, SOB at rest - Gastrointestinal Gastrointestinal: reports: Diarrhea. denies: Abdominal pain, Abdominal distention, Constipation, Rectal bleeding, Black stools, Bloody stools, Nausea, Vomiting - Genitourinary Genitourinary: denies: Dysuria, Frequency, Urgency, Hematuria - Musculoskeletal Musculoskeletal: denies: Muscle pain, Back pain, Muscle aches, Stiffness, Muscle weakness, Gout, Joint pain - Integumentary Integumentary: denies: Rash, Pruritis, Lesions, Dryness - Neurological Neurological: denies: General weakness, Focal weakness, Headache, Dizziness - Psychiatric Psychiatric: denies: Depression, Anxiety, Suicidal, Hallucinations - Endocrine Endocrine: denies: Polyuria, Polydypsia, Polyphagia - Hematologic/Lymphatic Hematologic/Lymphatic: denies: Anemia, Bruising, Petechiae, Lymphadenopathy - All Other Systems All Other Systems: reports: Reviewed and negative Exam - Vital Signs Reviewed Vital Signs: Yes - Physical Exam General Appearance: positive: Alert, Mild distress Eyes Bilateral: positive: Normal inspection, PERRL, EOMI, No lid inflammation, No scleral icterus, Other (Conjunctiva pale) ENT: positive: ENT inspection nml, Pharynx nml, Dry mucous membranes. negative : Oral lesions Neck: positive: Nml inspection, Thyroid nml, No JVD, Trachea midline. negative : Thyromegaly Respiratory: positive: Chest non-tender, No respiratory distress, Breath sounds nml. negative: Wheezes, Rales, Rhonchi Cardiovascular: positive: Regular rate & rhythm, No murmur, No gallop Peripheral Pulses: positive: 1+ Abdomen: positive: Non-tender, No organomegaly, Nml bowel sounds, No distention. negative: Guarding, Rebound Back: positive: Nml inspection. negative: CVA tenderness (R), CVA tenderness (L ) Skin: positive: Color nml, No rash, Warm, Dry. negative: Cyanosis Extremities: positive: Non-tender, Full ROM, Nml appearance, No pedal edema Neurologic/Psychiatric: positive: Oriented x3, CN's nml (2-12), Motor nml, Sensation nml, Mood/affect nml, Weakness. negative: Facial droop, Slurred/ abnml speech Conclusion/Plan - Problem List (1) Dehydration Conclusion/Plan: Patient has had a decreased oral intake of fluids and also has had chronic diarrhea for several days. We will gently rehydrate him with D5W half-normal saline with potassium and monitor his electrolytes. (2) Acute kidney injury superimposed on chronic kidney disease Conclusion/Plan: The patient's creatinine typically runs in the normal range. His creatinine was 3.1 on his first visit to the ER earlier today and then was 2.3 when rechecked this evening. We will continue to gently rehydrate the patient; his renal function appears to be responding well to the fluids. (3) Prostate cancer metastatic to bone Conclusion/Plan: The patient has a history of metastatic prostate cancer and has been getting treated for this for a few years. He now has a new neuroendocrine tumor which appears to be aggressive and has already invaded his liver and kidneys. He will need to consider whether he wishes to continue treatment of these cancers are wishes to focus on comfort measures as he appears to be terminally ill at this point in time. (4) Metastatic malignant neuroendocrine tumor to liver Conclusion/Plan: The patient has a history of metastatic prostate cancer and has been getting treated for this for a few years. He now has a new neuroendocrine tumor which appears to be aggressive and has already invaded his liver and kidneys. He will need to consider whether he wishes to continue treatment of these cancers are wishes to focus on comfort measures as he appears to be terminally ill at this point in time. His oncologist has told him that if he does not treat the neuroendocrine tumor he has likely 1-3 months left to live but he may live as long as 1 year if the neuroendocrine tumor is treated. (5) Anemia Conclusion/Plan: Likely due to chronic disease. Patient is also been receiving chemotherapy which is likely suppressing his bone marrow. We will continue to monitor and transfuse when the patient become symptomatic. - Lab Results Lab results reviewed: Yes Fish Bones: 10/09/17 02:30 10/09/17 02:30 Core Measures - Anticipated LOS I expect patient to be DC'd or transferred within 96 hours.: Yes - DVT/VTE - Prophylaxis VTE/DVT Device ordered at admit?: Yes
[2017-10-09] MEDS: D5.45NS W/20 MEQ KCL 1,000 ML IV SCH ×2 (07:30→16:57)
[2017-10-09] MEDS ORDERED: DEXAMETHASONE 4 MG PO SCH (09:00)
[2017-10-09] MEDS ORDERED: NALOXONE 0.4 MG/ML VIAL ONE (09:06)
[2017-10-09] MEDS ORDERED: NALOXONE 0.4 MG/ML VIAL IVP SCH (09:08)
[2017-10-09] MEDS: SODIUM CHLORIDE FLUSH 0.9% 10 ML SYRINGE IVP SCH ×2 (09:10→16:05)
[2017-10-09] MEDS: POLYETHYLENE GLYCOL 3350 17 GM PACKET PO SCH (09:18)
[2017-10-09] MEDS: DEXAMETHASONE 4 MG TABLET PO SCH (12:03)
[2017-10-09] MEDS: LOPERAMIDE 2 MG CAPSULE PO PRN (12:03)
--- NOTE | 2017-10-09 13:16 | PROVIDER PROGRESS NOTE ---
Hospitalist Cross-cover Note - Cross-Cover Note Cross-Cover Note: Pt was alert, stood alone and walked to bedside chair and was resting. RT tech came to do EKG which was ordered after 6-beat VTach and 9-beat VTach seen on telemetry. The RT tech called the RN, because the Pt was unresponsive. RN called charge nurse who called me. I saw the patient. He appeared warm, dry, breathing comfortably, lips looked pale, he opened his eyes to a sternal rub. BP 129/64, HR 98, regular, RR estimated at 12/min Exam: Severely obtunded HEENT: opens eyes to painful stimuli, lips pale, wearing ventimask. Neck supple Chest clear Heart normal Abd soft Legs no edema, fingertips cool and purple. Imp: Over-sedation. I reviewed the chart, a.m. labs, a.m. meds and feel he got excessive sedation from a.m. Methadone 5 mg po dose given 1.5 hours before. Non-sustained monomorphic VTach. Diarrhea with dehydration and JUAN ALBERTO. Plan: Change status from Observation to Inpatient. Head CT to evaluate for CVA ABG. EKG - already done. 1 amp Narcan iv STAT. Result: The Narcan produced complete reversal of his altered mental status. The Head CT and ABG were cancelled. His RN then reported to me that she had been told that his home dose of Methadone was 2.5 mg, not 5 mg, and even 2.5 mg was excessive and sedating, according to the patient. Will decrease Methaone dosing. Continue iv fluids. Order stool cultures and C. diff. Change regular diet to full liquid diet, for bowel rest while having diarrhea. Abd Xray. Echo and troponin are also pending. Continue telemetry. (30 min of critical care time spent)
--- NOTE | 2017-10-09 14:05 | XRAY Report ---
Procedure Date: 10/09/2017 Accession Number: [id number] / [id number] Procedure: XR - Abdomen 1 View X-Ray CPT Code: 10058 FULL RESULT: EXAM: ABDOMEN RADIOGRAPHY EXAM DATE: 10/09/2017 11:56 AM. CLINICAL HISTORY: Diarrhea. History of metastatic prostate cancer and neuroendocrine tumor COMPARISON: None. TECHNIQUE: 1 view. FINDINGS: Bowel Gas Pattern: No dilated gas-filled loops of small bowel. There is mild gaseous distention of the ascending and transverse colon. Other: A right ureteral stent is present. There are multiple surgical clips in the pelvis. No acute osseous abnormality. IMPRESSION: Nonobstructive bowel gas pattern. RADIA
[2017-10-09] MEDS: VANCOMYCIN 125 MG CAPSULE PO SCH ×2 (16:05→20:57)
[2017-10-09] MEDS: ACETAMINOPHEN 325 MG TABLET PO PRN (16:57)
--- NOTE | 2017-10-09 20:10 | XRAY Report ---
Procedure Date: 10/09/2017 Accession Number: [id number] / [id number] Procedure: XR - Chest 1 View X-Ray CPT Code: 44230 FULL RESULT: EXAM: CHEST RADIOGRAPHY EXAM DATE: 10/09/2017 07:14 PM. CLINICAL HISTORY: Wheezing, cough for 3 days. COMPARISON: CHEST 2 VIEW 10/08/2017. TECHNIQUE: 1 view. FINDINGS: Lungs/Pleura: Mild scarring/atelectasis in the bases, otherwise no focal opacities evident. No pleural effusion. No pneumothorax. Mediastinum: Within exam limitations, the cardiomediastinal contour is normal. Other: No fractures identified. IMPRESSION: Stable mild bibasilar scarring/atelectasis. RADIA
[2017-10-09] MEDS ORDERED: MIN OIL/DIMETHICON/COCONUT OIL 92 GM TUBE TOP PRN (22:12)
[2017-10-10] MEDS: D5.45NS W/20 MEQ KCL 1,000 ML IV SCH (01:00)
[2017-10-10] MEDS: ACETAMINOPHEN 325 MG TABLET PO PRN ×3 (01:31→13:06)
[2017-10-10] MEDS: SODIUM CHLORIDE FLUSH 0.9% 10 ML SYRINGE IVP SCH ×4 (05:16→23:27)
[2017-10-10 05:46] LABS: HGB - HEMOGLOBIN 7.8 g/dL (14.0-18.0); MEAN CORPUSCULAR HEMOGLOBIN 29.3 pg (27.0-31.0); MEAN CORPUSCULAR HGB CONC 33.7 g/dL (32.0-36.0); MEAN CORPUSCULAR VOLUME 87.1 fL (80.0-94.0); MEAN PLATELET VOLUME 7.2 fL (7.4-11.4); RED BLOOD COUNT 2.65 10^6/uL (4.70-6.10); RED CELL DISTRIBUTION WIDTH 14.9 % (12.0-15.0); WHITE BLOOD COUNT 4.6 x10^3/uL (4.8-10.8)
[2017-10-10 05:56] LABS: CALCIUM 9.4 mg/dL (8.5-10.3); CREATININE 1.5 mg/dL (0.6-1.2)
[2017-10-10] MEDS ORDERED: METHADONE 5 MG TABLET PO PRN (07:50)
--- NOTE | 2017-10-10 07:53 | PROVIDER PROGRESS NOTE ---
Assessment/Plan - Problem List (1) Dehydration Assessment/Plan: The patient is tolerating his full liquid diet. There is still abdominal pain due to bloating and gas. Continue this diet for bowel rest and continue iv hydration. Monitor daily BMP, Mg. (2) Hyponatremia Assessment/Plan: Likely from hypotonic saline hydration. Will change iv fluids from D5 1/2 NS w/ 20 mEq KCl to D5 NS w/ 20 mEq KCl and decrease the rate slightly (3) Acute kidney injury superimposed on chronic kidney disease Assessment/Plan: Improved creatinine after hydration begun. Continue iv fluids and monitor daily BMP. (4) C. difficile diarrhea Assessment/Plan: Pt was started on po Vanco yesterday afternoon. He is also on Lomotil and Imodium and Florastor. Continue isolation and contact precautions. Diet will be advanced as tolerated. Continue po Vanco. (5) Anemia Assessment/Plan: Probably anemic from his cancers or anemia of chronic disease. Will check Iron panel, B12 and folate and replace if low. Will monitor for further drop in Hgb and will transfuse blood if symptomatic. (6) Wheezing Assessment/Plan: Last evening the reported she heard him wheezing. He has no Hx of asthma or COPD or ever needed inhalers. A CXR and BNP were done which showed no CHF or infiltrate and mild elevation of BNP. Today there is no audible wheezing on exam and clear breath sounds. Follow chest exam clinically. (7) Metastatic malignant neuroendocrine tumor to liver Assessment/Plan: No change in management while here. The patient's was able to give me more background info and plan: He is to get a port placed and start chemo in approx the next 2 weeks. Because of that, there was elective back surgery planned for lumbar stenosis, that was cancelled. Only pain management for that spinal pain now. He was seen by Palliative Care to start getting pain meds in order. A change from Oxycodone to Methadone was started by NORMAN Su. I will call her to update her that he is an inpatient now. (8) Prostate cancer metastatic to bone Assessment/Plan: No change in management while here. (9) Chronic pain due to malignant neoplastic disease Assessment/Plan: The patient reports "pelvic girdle" pain and pain in his thoracic and lumbar spine due to spinal stenosis. He was on oxycodone and being changed to Methadone for pain control, by NORMAN Su. Yesterday, the patient was over-sedated from the methadone 5 mg po dose which was given once and then he refused the scheduled 2.5 mg dose yesterday evening and this morning, and wants the dose even lower. I will adjust Methadone to 1/8th of a 5 mg dose (= 0.75mg) tid and increase if no pain control and if he tolerates it without obtundation. (10) Spinal stenosis Assessment/Plan: as in #7, 8 and 9 above (11) Abnormal EKG Assessment/Plan: When the patient was obtunded and with a low BP, an EKG was done to assess for cardiac etiology. It was abnormal (see below). The is present at bedside today to update me on more background information : He was to have elective lumbar spine surgery and had a pre-op EKG that was abnormal therefore he needed to be seen by a Head Porter to be cleared, which would mean a stress test. None of that was scheduled yet. Lumbar surgery was now cancelled entirely due to the new cancer and need for chemo. An Echo is pending to check for resting LV wall motion abnormalities. - Current Meds Current Meds: Current Medications Generic Name Dose Route Start Last Admin Trade Name Freq PRN Reason Stop Dose Admin Acetaminophen 650 mg 10/09/17 16:33 10/10/17 06:02 Tylenol PO 650 mg Q4HR PRN Administration Pain or Fever > 38C (100.4F) Dexamethasone 4 mg 10/09/17 08:00 10/09/17 12:03 Decadron PO 4 mg QDBREAKFAST MONSTER Administration Loperamide HCl 2 mg 10/09/17 06:34 10/09/17 12:03 Imodium PO 2 mg QID PRN Administration Diarrhea Polyethylene Glycol 17 gm 10/09/17 09:00 10/09/17 09:18 Miralax PO Not Given DAILY MONSTER Sodium Chloride 10 ml 10/09/17 09:00 10/10/17 05:16 Normal Saline Flush 0.9% IVP Not Given 0100,0900,1700 MONSTER Vancomycin HCl 125 mg 10/09/17 15:00 10/09/17 20:57 Vancocin PO 125 mg QID MONSTER Administration - Lab Result Fish Bone Diagrams: 10/10/17 05:13 10/10/17 05:13 - EKG Results EKG Interpreted Independently: Yes EKG Comparison: No prior EKG EKG Findings: EKG from 10/09/17 showed: NSR, Q waves in leads III and AVF, QS waves in V1-V3 and poor R wave progression, horizontal lateral ST segment depressions. - Additional Planning My Orders: My Active Orders 10/09/17 08:53 Arterial Blood Gases - RT [RC] .ONCE 10/09/17 14:42 Infection Precautions [Infection Precautions] [RC] ONCE 10/09/17 15:00 Vancomycin [Vancocin] 125 mg PO QID 10/09/17 16:33 Acetaminophen [Tylenol] 650 mg PO Q4HR PRN 10/09/17 22:12 Min Oil/Dimeth/Coconut Oil Crm [Cavilon] 1 applic TOP PRN PRN 10/10/17 07:50 Methadone 1.25 mg PO BID PRN 10/10/17 08:00 D5ns W/20 Meq KCl 1,000 ml IV 80 mls/hr Subjective - Subjective Patient Reports: Feeling Better, Resting Comfortably, Other (Not confused. Tolerated cream of cicken soup and liquids.) Nursing Reports: Other (No diarrhea today, just passing gas.) Objective Vital Signs: Vital Signs - 24 hr 10/09/17 10/09/17 10/09/17 12:27 15:55 18:28 Temperature 37.5 C 37.5 C Heart Rate [ 103 H 120 H Brachial] Respiratory 18 20 Rate Blood Pressure 109/55 L 136/95 H [Right Brachial artery] O2 Saturation 97 96 10/09/17 10/09/17 10/09/17 20:53 22:00 23:55 Temperature 37.2 C 36.9 C Heart Rate [ 93 95 112 H Brachial] Respiratory 16 18 Rate Blood Pressure 93/42 L 137/66 H 156/97 H [Right Brachial artery] O2 Saturation 98 94 10/10/17 04:05 Temperature 36.4 C L Heart Rate [ 96 Brachial] Respiratory 18 Rate Blood Pressure 127/55 L [Right Brachial artery] O2 Saturation 97 Oxygen O2 Source Room air I&O (Last 24 Hrs): Intake and Output Totals x24h 10/08/17 10/09/17 10/10/17 23:59 23:59 23:59 Intake Total 1480 1727.083 Output Total 200 375 Balance 1280 1352.083 General: Alert, Oriented x3 HEENT: Other (Pale. Dry oral mucosa.) Neck: Supple, No JVD Neuro: Non Focal Cardiovascular: Regular rate, No murmurs Respiratory: No respiratory distress, Breath sounds nml Abdomen: Other (Distended and hyper-tympanic consistent with gas. Tender to mild palpation diffusely.) Extremities: No edema, No tenderness/swelling - Results Results: Laboratory Results WBC 4.6 x10^3/uL (4.8-10.8) L 10/10/17 05:13 RBC 2.65 10^6/uL (4.70-6.10) L 10/10/17 05:13 Hgb 7.8 g/dL (14.0-18.0) L 10/10/17 05:13 Hct 23.1 % (42.0-52.0) L 10/10/17 05:13 MCV 87.1 fL (80.0-94.0) 10/10/17 05:13 MCH 29.3 pg (27.0-31.0) 10/10/17 05:13 MCHC 33.7 g/dL (32.0-36.0) 10/10/17 05:13 RDW 14.9 % (12.0-15.0) 10/10/17 05:13 Plt Count 250 10^3/uL (130-450) 10/10/17 05:13 MPV 7.2 fL (7.4-11.4) L 10/10/17 05:13 Neut # (Auto) Not Reportable 10/09/17 02:30 Lymph # (Auto) Not Reportable 10/09/17 02:30 [place] # (Auto) Not Reportable 10/09/17 02:30 Eos # (Auto) Not Reportable 10/09/17 02:30 Baso # (Auto) Not Reportable 10/09/17 02:30 Absolute Nucleated RBC Not Reportable 10/09/17 02:30 Total Counted 100 10/09/17 02:30 Band Neuts % (Manual) 33 % (0-10) H 10/09/17 02:30 Abnorm Lymph % (Manual) 0 % 10/09/17 02:30 Metamyelocytes % 3 % (-0) H 10/09/17 02:30 Nucleated RBC % Not Reportable 10/09/17 02:30 Neutrophils # (Manual) 4.8 10^3/uL (1.5-6.6) 10/09/17 02:30 Lymphocytes # (Manual) 0.7 10^3/uL (1.5-3.5) L 10/09/17 02:30 Monocytes # (Manual) 0.4 10^3/uL (0.0-1.0) 10/09/17 02:30 Eosinophils # (Manual) 0.0 10^3/uL (0-0.7) 10/09/17 02:30 Basophils # (Manual) 0.0 10^3/uL (0-0.1) 10/09/17 02:30 Differential Comment MANUAL DIFFERENTIAL 10/09/17 02:30 Platelet Estimate NORMAL (130-450,000) (NORMAL) 10/09/17 02:30 Platelet Morphology NORMAL APPEARANCE (NORMAL) 10/09/17 02:30 RBC Morph Micro Appear NORMAL APPEARANCE (NORMAL) 10/09/17 02:30 Sodium 130 mmol/L (135-145) L 10/10/17 05:13 Potassium 4.3 mmol/L (3.5-5.0) 10/10/17 05:13 Chloride 101 mmol/L (101-111) 10/10/17 05:13 Carbon Dioxide 18 mmol/L (21-32) L 10/10/17 05:13 Anion Gap 11.0 (6-13) 10/10/17 05:13 BUN 38 mg/dL (6-20) H 10/10/17 05:13 Creatinine 1.5 mg/dL (0.6-1.2) H 10/10/17 05:13 Estimated GFR (MDRD) 46 (>89) L 10/10/17 05:13 Glucose 112 mg/dL (70-100) H 10/10/17 05:13 POC Whole Bld Glucose 107 mg/dL (70 - 100) H 10/09/17 08:53 Lactic Acid 1.6 mmol/L (0.5-2.2) 10/09/17 02:30 Calcium 9.4 mg/dL (8.5-10.3) 10/10/17 05:13 Phosphorus 4.6 mg/dL (2.5-4.6) 10/09/17 02:30 Magnesium 2.3 mg/dL (1.7-2.8) 10/09/17 02:30 Total Bilirubin 0.5 mg/dL (0.2-1.0) 10/09/17 02:30 AST 38 IU/L (10-42) 10/09/17 02:30 ALT 16 IU/L (10-60) 10/09/17 02:30 Alkaline Phosphatase 144 IU/L (42-121) H 10/09/17 02:30 Troponin I < 0.04 ng/mL (<0.49) 10/09/17 06:01 B-Natriuretic Peptide 269 pg/mL (5-100) H 10/09/17 19:42 Total Protein 6.7 g/dL (6.7-8.2) 10/09/17 02:30 Albumin 2.4 g/dL (3.2-5.5) L 10/09/17 02:30 Globulin 4.3 g/dL (2.1-4.2) H 10/09/17 02:30 Albumin/Globulin Ratio 0.6 (1.0-2.2) L 10/09/17 02:30 Lipase 73 U/L (22-51) H 10/09/17 02:30 Urine Color YELLOW 10/09/17 04:25 Urine Clarity SL. CLOUDY (CLEAR) 10/09/17 04:25 Urine pH 6.0 PH (5.0-7.5) 10/09/17 04:25 Ur Specific [place] 1.020 (1.002-1.030) 10/09/17 04:25 Urine Protein 30 mg/dL (NEGATIVE) H 10/09/17 04:25 Urine Glucose (UA) NEGATIVE mg/dL (NEGATIVE) 10/09/17 04:25 Urine Ketones NEGATIVE mg/dL (NEGATIVE) 10/09/17 04:25 Urine Occult Blood MODERATE (NEGATIVE) H 10/09/17 04:25 Urine Nitrite NEGATIVE (NEGATIVE) 10/09/17 04:25 Urine Bilirubin NEGATIVE (NEGATIVE) 10/09/17 04:25 Urine Urobilinogen 0.2 (NORMAL) E.U./dL (NORMAL) 10/09/17 04:25 Ur Leukocyte Esterase NEGATIVE (NEGATIVE) 10/09/17 04:25 Urine RBC 6-10 /HPF (0-5) H 10/09/17 04:25 Urine WBC 0-3 /HPF (0-3) 10/09/17 04:25 Ur Squamous Epith Cells FEW Squamous (<= Few) 10/09/17 04:25 Urine Bacteria None Seen /HPF (None Seen) 10/09/17 04:25 Urine Casts 0-2 Hyaline Casts /LPF3-5 Granular Casts /LPF 10/09/17 04:25 Urine Casts 0-2 Hyaline Casts /LPF3-5 Granular Casts /LPF 10/09/17 04:25 Ur Microscopic Review INDICATED 10/09/17 04:25 Urine Culture Comments NOT INDICATED 10/09/17 04:25 ABX Reporting Has patient been on IV antibiotics over the past 48 hours?: No
[2017-10-10] MEDS: SACCHAROMYCES BOULARDII 250 MG CAPSULE PO SCH ×3 (08:23→17:33)
[2017-10-10] MEDS: DEXAMETHASONE 4 MG TABLET PO SCH (08:24)
[2017-10-10] MEDS: POLYETHYLENE GLYCOL 3350 17 GM PACKET PO SCH (08:24)
[2017-10-10] MEDS: VANCOMYCIN 125 MG CAPSULE PO SCH ×4 (08:24→21:28)
[2017-10-10] MEDS: ENZALUTAMIDE 40 MG PO SCH (08:26)
[2017-10-10] MEDS ORDERED: METHADONE 5 MG TABLET PO SCH (09:00)
[2017-10-10] MEDS: D5NS W/20 MEQ KCL 1,000 ML IV SCH ×2 (09:30→21:28)
[2017-10-10] MEDS: METHADONE 5 MG TABLET PO SCH ×2 (13:08→21:28)
[2017-10-10] MEDS: IBUPROFEN 600 MG TABLET PO PRN ×2 (15:52→21:28)
[2017-10-10] MEDS: DIPHENOX/ATROPINE 2.5/0.025 MG TABLET PO PRN (22:53)
[2017-10-10] MEDS: SIMETHICONE CHEW 80 MG TABLET PO SCH (23:59)
[2017-10-11] MEDS: IBUPROFEN 600 MG TABLET PO PRN (05:32)
[2017-10-11] MEDS: METHADONE 5 MG TABLET PO SCH (05:33)
[2017-10-11 06:24] LABS: HGB - HEMOGLOBIN 8.6 g/dL (14.0-18.0); MEAN CORPUSCULAR HEMOGLOBIN 29.2 pg (27.0-31.0); MEAN CORPUSCULAR HGB CONC 33.6 g/dL (32.0-36.0); MEAN CORPUSCULAR VOLUME 86.7 fL (80.0-94.0); MEAN PLATELET VOLUME 7.1 fL (7.4-11.4); RED BLOOD COUNT 2.95 10^6/uL (4.70-6.10); RED CELL DISTRIBUTION WIDTH 15.1 % (12.0-15.0); WHITE BLOOD COUNT 6.4 x10^3/uL (4.8-10.8)
[2017-10-11 06:25] LABS: INR 1.2 (0.8-1.2); PT - PROTHROMBIN TIME 13.9 secs (9.9-12.6)
[2017-10-11 06:45] LABS: CALCIUM 9.4 mg/dL (8.5-10.3); CREATININE 1.2 mg/dL (0.6-1.2); MAGNESIUM 1.8 mg/dL (1.7-2.8)
[2017-10-11 06:59] LABS: FOLATE 4.64 ng/mL (5.90 - >24.8)
[2017-10-11] MEDS: SACCHAROMYCES BOULARDII 250 MG CAPSULE PO SCH ×2 (08:05→16:09)
[2017-10-11] MEDS: DEXAMETHASONE 4 MG TABLET PO SCH (08:05)
[2017-10-11] MEDS: ENZALUTAMIDE 40 MG PO SCH (08:07)
[2017-10-11] MEDS: POLYETHYLENE GLYCOL 3350 17 GM PACKET PO SCH (08:08)
[2017-10-11] MEDS: SIMETHICONE CHEW 80 MG TABLET PO SCH ×2 (10:31→14:05)
[2017-10-11] MEDS: D5NS W/20 MEQ KCL 1,000 ML IV SCH (10:31)
[2017-10-11] MEDS: VANCOMYCIN 125 MG CAPSULE PO SCH ×3 (10:32→16:09)
[2017-10-11] MEDS: SODIUM CHLORIDE FLUSH 0.9% 10 ML SYRINGE IVP SCH ×2 (10:32→16:09)
[2017-10-11] MEDS: LOPERAMIDE 2 MG CAPSULE PO PRN (10:48)
[2017-10-11] MEDS ORDERED: oxyCODONE 5 MG TABLET PO PRN ×2 (11:27→22:06)
[2017-10-11] MEDS ORDERED: LIDOCAINE PATCH 5% TOP PRN (11:28)
--- NOTE | 2017-10-11 11:31 | CONSULTATION NOTE ---
Palliative Care Follow Up - Referral Referring Provider: Dr. 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 His diseases and his liver, was found to have 7 hypodense liver lesions, this is what was biopsied. He also has a known enlarging lobular mass just posterior to the location of the prostate with increased size since June on his last CT scan on 09/16 it was shown to be a 4.7 x 4.6 x 4.9 increased irregular soft tissue that was infiltrating/invading the posterior inferior bladder and abuts and displaces the contour of the rectum. He also has a soft tissue nodule at the site of his original right ureter obstruction that had slightly increased in size measuring 1.91.3 at that point in time on 09/16 [address] stent was in place, according to the ED note they had done a bedside ultrasound and found the stent had failed on examination. They had consulted with the on-call urologist and indicated it was unlikely that this had anything to do with his change in BUN and creatinine are more related to his dehydration. Patient had been given the option of comfort/hospice care versus treatment though it is only palliative in nature with a very limited life expectancy up to a year. This was on 10/05 he was given this information and decision was made to proceed, I had met him the previous week patient had very poorly controlled pain. Patient had been on baseline gabapentin at high doses of 900 mg 3 times daily, related to what was thought to be an L5-S1 spondylolistheses with radiating pain to his legs still with poor control in February being worked up for back surgery, unclear now if some of the severity of his pain is related to his tumor in pelvis. He also has known bone lesion in T8, where his pain is centralized and has made mobility difficult to get in and out of bed. He was started on low dose methadone 2.5 mg on 09/28 with oxycodone 5 mg for breakthrough pain. Patient using cannabis vaping and oil, has presented with some lethargy, and very fearful of constipation as had experience previous with this with hydrocodone. He was tolerating it with still needing oxycodone 5 mg about every 4-5 hours so on 10/02 increased methadone to 2.5 mg BID. Has had frequent calls during this time, regarding follow up on bowels (constipation) and pain. Patient reported use of 10-12 tabs of BTP medication with still poorlly controlled pain so 10/05 increased methadone to 5 mg BID, reported new pain in rib area, on 09/22 was needing less oxycodone but rib pain still intense, concerned regarding cough/phelgm, did not want to go to ED so arranged for chest xray prior to appointment, did have episode of hallucinations and more lethargy, at that time inst. to titrate back gabapentin. When seen on 10/08 b/p 72/52 p.106, lethargic and confused, tremors and originally refused to go to ED , agreed to get fluids at [facility], had stat labs drawn, and noted JUAN ALBERTO and anemia, sent to ED directly, though was some confusion as thought going to floor. Did stay for work up fluids, and labs improved with some diarrhea attributed to laxative use at that time. Was discharged from ED, and had explosive diarrhea at home, and came back with testing positive for C. diff. Patient has not been on any recent AB. Unfortunately he became obtunded on 5 mg methadone with follow up Narcan, has been fearful to continue. Gabapentin had been reduced on instruction from Wednesday to 300 mg TID, but not restarted with all the confusion of his medications and family reporting and concerns. Patient presents today with multifactorial pain. He does have taut, painful abdomen on exam with hyperactive bowel tones. Very tender with any pressure. Was up to BR during our visit. Describes cramping abdominal pain. Very tentative with sitting to standing with back pain/pressure, and reticent to talk about or revisit pain plan. Unable to tell me barriers or concerns or participate much in the conversation regarding this. Given his concerns, will discontinue the methadone, and inst. to use the oxycodone 5 mg for pain, and will start from new baseline. Social History - Living Situation Living arrangement: At home Living Situation: With spouse/s.o. Support System: son and grandson also have been living there for about a year, has been a difficult transition though grandson has been very helpful with patient's functional decline. Medications/Allergies - Medications Active Medication List: Active Medications Acetaminophen (Tylenol) 650 mg PO Q4HR PRN PRN Reason: Pain or Fever > 38C (100.4F) Last Admin: 10/10/17 13:06 Dose: 650 mg Dexamethasone (Decadron) 4 mg PO QDBREAKFAST [facility] Last Admin: 10/11/17 08:05 Dose: 4 mg Diphenoxylate HCl/Atropine (Lomotil) 1 tab PO QID PRN PRN Reason: Diarrhea Last Admin: 10/10/17 22:53 Dose: 1 tab Ferrous Gluconate (Fergon) 324 mg PO DAILYWM [facility] Folic Acid () 1 mg PO DAILY [facility] Potassium Chloride/Dextrose/Sod Cl () 1,000 mls @ 80 mls/hr IV .[id number] [facility] Last Admin: 10/11/17 10:31 Dose: 80 mls/hr Ibuprofen (Motrin) 600 mg PO Q6HR PRN PRN Reason: PAIN Last Admin: 10/11/17 05:32 Dose: 600 mg Lidocaine (Lidoderm Patch) 1 patch TOP DAILY PRN PRN Reason: PAIN Loperamide HCl (Imodium) 2 mg PO QID PRN PRN Reason: Diarrhea Last Admin: 10/11/17 10:48 Dose: 2 mg Mineral Oil (Cavilon) 1 applic TOP PRN PRN PRN Reason: Skin Care Last Admin: 10/10/17 21:28 Dose: 1 applic Ondansetron HCl (Zofran Odt) 4 mg PO Q6HR PRN PRN Reason: Nausea / Vomiting Oxycodone HCl (Roxicodone) 5 mg PO Q8HR PRN PRN Reason: PAIN Non Formulary Med ( Enzalutamide [Xtandi ] 40 Mg) Capsule 4 each PO DAILY [facility] Last Admin: 10/11/17 08:07 Dose: Not Given Polyethylene Glycol (Miralax) 17 gm PO DAILY [facility] Last Admin: 10/11/17 08:08 Dose: Not Given Saccharomyces Boulardii (Florastor) 500 mg PO BIDWM [facility] Last Admin: 10/11/17 08:05 Dose: 500 mg Simethicone (Mylicon) 80 mg PO 0900,1300,1800,2100 [facility] Last Admin: 10/11/17 10:31 Dose: 80 mg Sodium Chloride (Normal Saline Flush 0.9%) 10 ml IVP PRN PRN PRN Reason: NEEDED PER PROVIDER ORDERS Sodium Chloride (Normal Saline Flush 0.9%) 10 ml IVP 0100,0900,1700 [facility] Last Admin: 10/11/17 10:32 Dose: Not Given Vancomycin HCl (Vancocin) 125 mg PO QID [facility] Last Admin: 10/11/17 10:32 Dose: 125 mg Enzalutamide [Xtandi] 160 mg PO DAILY 03/30/17 Gabapentin 900 mg PO TID 07/27/17 Dexamethasone 4 mg PO 0700 09/28/17 Methadone 2.5 mg PO TID 09/28/17 Sennosides [Senna] 17.2 mg PO TID 09/28/17 Leuprolide [Lupron] 22.5 mg IM Q84D 10/09/17 - Allergies Allergies/Adverse Reactions: Allergies Allergy/AdvReac Type Severity Reaction Status Date / Time No Known Drug Allergies Allergy Verified 05/26/16 11:30 Review of Systems - Constitutional Constitutional: reports: Fatigue, Poor appetite - Cardiovascular Cardiovascular: reports: Irregular heart rate, Exertional dyspnea, Decr. exercise tolerance - Respiratory Respiratory: reports: SOB with exertion. denies: SOB at rest - Gastrointestinal Gastrointestinal: reports: Abdominal pain, Abdominal distention, Diarrhea, Poor appetite, Other (belching) - Genitourinary Genitourinary: reports: Urgency - Musculoskeletal Musculoskeletal: reports: Back pain, Muscle aches, Stiffness, Muscle weakness, Assistive devices (using walker with cueing and contact assist; needing assistance sitting to standing and bed mobility) - Neurological Neurological: reports: General weakness, Memory problems, Slurred speech - Psychiatric Psychiatric: reports: Other (distressed over situtation; defers to to speak for him; unclear if confused though seems to have insight into gravity; not understanding nuances) - Hematologic/Lymphatic Hematologic/Lymphatic: reports: Anemia, Recurrent infections (C diff first time) - All Other Systems All Other Systems: reports: Reviewed and negative Physical Exam - Vital Signs Vital Signs: Vital Signs x48h Temp Pulse Resp BP Pulse Ox 10/11/17 10:52 101 H 145/80 H 10/11/17 07:38 36.3 C L 94 18 154/82 H 96 10/11/17 05:00 36.0 C L 97 20 159/74 H 97 - Physical Exam General Appearance: positive: Mild distress, Anxious, Lethargic Eyes Bilateral: positive: Normal inspection ENT: positive: No signs of dehydration Neck: positive: No JVD, Trachea midline Cardiovascular: positive: Tachycardia Respiratory: positive: No respiratory distress Abdomen: positive: Abnml bowel sounds, Tenderness, Distended, Taut Skin: positive: Pallor, Diaphoresis, Dryness Extremities: positive: No pedal edema Neurologic/Psychiatric: positive: Disoriented to time, Weakness, Depressed mood/ affect, Flat affect Palliative Care - POLST Patient has POLST: No Pain: Pain worsening (see HPI; suspect medications in system are now cleared as well as abdominal pain from C diff bloating and cramping) Tiredness/Fatigue: Severe (7-10) Drowsiness/Sedation: Severe (7-10) - Palliative Care Discussion: Both patient and quite guarded this morning, have many questions about the implications of infection on the future. Are upset with multiple areas of concern, and interactions. Difficulty to define exactly what is going to be of help or benefit, did agree to follow-up with Dr. Benitez regarding Port-A-Cath placement, question about oral chemotherapy, and when can start his next treatment plan. Given the level of distress, did not approach advanced care planning at this point in time, as best they know up to this point there is been no formal documentation our opportunity to have more in-depth conversations Results - Lab Results Lab results reviewed: Yes Fish Bones: 10/11/17 06:12 10/11/17 06:12 Lab and Imaging Results: Lab Results x24hrs 10/11/17 10/11/17 10/11/17 Range/Units 06:12 06:12 06:12 WBC (4.8-10.8) x10^3/uL RBC (4.70-6.10) 10^6/uL Hgb (14.0-18.0) g/dL Hct (42.0-52.0) % MCV (80.0-94.0) fL MCH (27.0-31.0) pg MCHC (32.0-36.0) g/dL RDW (12.0-15.0) % Plt Count (130-450) 10^3/uL MPV (7.4-11.4) fL PT 13.9 H (9.9-12.6) secs INR 1.2 (0.8-1.2) Sodium 133 L (135-145) mmol/L Potassium 4.2 (3.5-5.0) mmol/L Chloride 105 (101-111) mmol/L Carbon Dioxide 18 L (21-32) mmol/L Anion Gap 10.0 (6-13) BUN 27 H (6-20) mg/dL Creatinine 1.2 (0.6-1.2) mg/dL Estimated GFR (MDRD) 60 L (>89) Glucose 99 (70-100) mg/dL Calcium 9.4 (8.5-10.3) mg/dL Magnesium 1.8 (1.7-2.8) mg/dL Iron 29 L (45-182) ug/dL TIBC 153 L (250-450) ug/dL % Saturation 19 L (20-50) % Transferrin 109 L (180-329) mg/dL Vitamin B12 540 (180-914) pg/mL Folate 4.64 L (5.90 - >24.8) ng/mL 10/11/17 Range/Units 06:12 WBC 6.4 (4.8-10.8) x10^3/uL RBC 2.95 L (4.70-6.10) 10^6/uL Hgb 8.6 L (14.0-18.0) g/dL Hct 25.6 L (42.0-52.0) % MCV 86.7 (80.0-94.0) fL MCH 29.2 (27.0-31.0) pg MCHC 33.6 (32.0-36.0) g/dL RDW 15.1 H (12.0-15.0) % Plt Count 307 (130-450) 10^3/uL MPV 7.1 L (7.4-11.4) fL PT (9.9-12.6) secs INR (0.8-1.2) Sodium (135-145) mmol/L Potassium (3.5-5.0) mmol/L Chloride (101-111) mmol/L Carbon Dioxide (21-32) mmol/L Anion Gap (6-13) BUN (6-20) mg/dL Creatinine (0.6-1.2) mg/dL Estimated GFR (MDRD) (>89) Glucose (70-100) mg/dL Calcium (8.5-10.3) mg/dL Magnesium (1.7-2.8) mg/dL Iron (45-182) ug/dL TIBC (250-450) ug/dL % Saturation (20-50) % Transferrin (180-329) mg/dL Vitamin B12 (180-914) pg/mL Folate (5.90 - >24.8) ng/mL Impression and Recommendations - Palliative Care Impression: This is a 71-year-old gentleman with metastatic prostate cancer, now transformed and high-grade neuroendocrine carcinoma small cell type, with increased tumor burden, liver metastases suspected pulmonary metastases, and mass in pelvis. He also has a mass compressing his right ureter. Patient has had poorly controlled pain, and continues to be uncomfortable, with multiple barriers, at this point in time is not comfortable in taking pain medication though his pain does appear to be escalating. Patient now presents with acute process of JUAN ALBERTO and C diff, adding to the complexity. Recommendations/Counseling Done: 1. Pain of neoplastic origin. Recommend given the history to discontinue the methadone, and start oxycodone 5-10 mg tab every 3 hours as needed for pain. Can try topical lidocaine patch for topical, and when patient in agreement restart gabapentin at 300 mg TID. Patient's medications from before most likely now cleared system, also the acute pain of his C. Diff. Counseling attempted to encourage patient to restart with short-acting medication to address current pain levels, and can make recommendations for long acting based on response. 2. JUAN ALBERTO. Patient improving with rehydration, (patient had been taking 20 lisinopril at home prior as well), will need to continue to monitor. 3. Metastatic Prostate Cancer transformed to high grade neuroendocrine type. Patient discouraged with set back and acute illness, call to Dr. Benitez, will see patient tomorrow at noon. Can address questions of xtandi and moving forward. Plan for possible port placement here at [facility]. 4. Depression. Patient and continue to express concern with treatment plan/ plans of care. Patient hoping to go home, at this time still planning to move forward with treatment, [employer] following up on equipment needs given with Medicare will be delay, would recommend trying [employer] at this time. 5. Advance care planning. Given patient and 's state of mind when met, will defer until information and treatment plan explored further, and define goals of care. Follow up 1700; Confirmed with [facility] appointment; probable port placement with Dr. Nuno, patient and sleeping when arrived had taken oxycodone. Will see in AM ADDENDUM 1800: Call from nurse, patient and want to go AMA. Requested to meet with them are see if I could address her concerns. Patient does appear slightly confused, but was quite adamant wants to go home, is quite adamant wants to honor his wishes. Patient feels like he is dying, and wants to go home to . Reports severe pain, did accept one mg of hydromorphone, still exhibiting significant pain behaviors with transfers and movement. Discussed possibly waiting until could get a ambulance transfer, this would be acceptable but would require a wait. not wanting any further conversation around it, just wants support in assisting with transfers and getting him in the car. Patient is still quite acutely ill, with C. difficile, refused antibiotics on discharge and did sign AMA paperwork knowing that this is AGAINST MEDICAL ADVICE and most likely could lead to further decline. Did offer the at least follow-up by hospice tomorrow, at this point in time she declines. Continued to provide support and assistance with patient with getting ready to go, she did agree I could call tomorrow. Unclear patient really could weigh benefits and burdens of leaving, though quite clear does not want to waiver. Patient did remark on way out wondering if there were something we could offer to assist his , will explore hospice referral again tomorrow. Time Spent: Time spent 135 minutes with greater than 50% of this done in counseling and anticipatory guidance, providing psychosocial support and coordination of care. Unfortunately patient chose to leave, unclear if this will not overwhelm with his care needs, will attempt to follow up tomorrow.
--- NOTE | 2017-10-11 12:02 | PROVIDER PROGRESS NOTE ---
Assessment/Plan - Problem List (1) Paroxysmal A-fib Assessment/Plan: I reviewed his entire telemetry record. Afib started at 0200 over night this last night and he is in and out of it. When his HR is at it's highest, he is in Afib. He had an Echo done yesterday that showed normal resting LVEF and no pulminary HTN. Will check troponins, to R/O TN as the cause for new onset Afib. Will check for hyperthyroidism with free T4 and T3. Will start Toprol XL 25 mg daily, to control HRs when he is in Afib, and hopefully B-claudette will prevent Afib. His CHADS score = 0 (no CHF, HTN, Age>75, DM or Stroke hx), therefore no anticoagulation needed, but will add a baby ASA daily. (2) C. difficile diarrhea Assessment/Plan: Stool culture is neg for bacteria (Shigell, salmonell, etc). BMs are decreasing but gas and distension continue, and he took only minimal Ensure because of that. Continue po Vanco, for a 10 day course. Continue Florastor. Continue prn Simethicone, Imodium and Lomotil. Continue a liquid diet. Director Of Donor Relations to see to address calories and protein. (3) Dehydration Assessment/Plan: BUN/creat ratio have improved and pt appears less dry. Continue iv hydration and monitor daily BMP and Mg. (4) Hyponatremia Assessment/Plan: Slow improvement with iv saline and on Dexamethasone since before admission. Continue saline iv. Monitor daily Na. (5) Acute kidney injury superimposed on chronic kidney disease Assessment/Plan: Improved BUN/creat ratio. Continue hydration and monitor daily labs. (6) Anemia Assessment/Plan: Labs show low iron levels and low folate. Will start oral ferrous gluconate daily and oral folic acid daily. (7) Metastatic malignant neuroendocrine tumor to liver Assessment/Plan: Will ask NORMAN Gordon from [facility] to see him and confirm what meds he should be taking for his different cancers. Chasidy Bellamy indicated that his Oncologist, Dr Katrina Benitez will see the patient tomorrow, to go over the plan for his cancer treatment. (8) Chronic pain due to malignant neoplastic disease Assessment/Plan: Chasidy Bellamy saw patient and at bedside today, and addressed his pain meds and management. He was on Gabapentin 900 mg tid at home and Oxycodone was being decreased and Methadone was at 2.5 mg bid and just increased to 5 mg bid. Here he got a 5 mg dose of methadone, which caused over-sedation. Now the patient is declining to take any Methadone. He requested Ibuprofen yesterday, which I ordered and he tried, but had no relief. Today, after Chasidy saw the patient, they agreed that he will resume Oxycodone 5 mg dose, try a topical Lidocaine patch, stop all Methadone doses and Ibuprofen. I planned to also resume the Gabapentin, but he and the did not want that restarted due to it "caused shakiness/tremor". (9) Spinal stenosis Assessment/Plan: Continue with pain management. Elective lumbar surgery is no longer planned. (10) Abnormal EKG Assessment/Plan: Echo showed normal resting LVEF. He would have needed a pre-op pharmaceutical stress test, but no lumbar surgery is being considered any longer. - Current Meds Current Meds: Current Medications Generic Name Dose Route Start Last Admin Trade Name Tanvi PRN Reason Stop Dose Admin Acetaminophen 650 mg 10/09/17 16:33 10/10/17 13:06 Tylenol PO 650 mg Q4HR PRN Administration Pain or Fever > 38C (100.4F) Dexamethasone 4 mg 10/09/17 08:00 10/11/17 08:05 Decadron PO 4 mg [id number] MONSTER Administration Diphenoxylate HCl/Atropine 1 tab 10/10/17 06:51 10/10/17 22:53 Lomotil PO 1 tab QID PRN Administration Diarrhea Potassium Chloride/Dextrose/Sod Cl 1,000 mls @ 80 mls/hr 10/10/17 08:00 10/11 10:31 IV 80 mls/hr .[id number] MONSTER Administration Lidocaine 1 patch 10/11/17 11:28 10/11/17 11:47 Lidoderm Patch TOP 1 patch DAILY PRN Administration PAIN Loperamide HCl 2 mg 10/09/17 06:34 10/11/17 10:48 Imodium PO 2 mg QID PRN Administration Diarrhea Mineral Oil 1 applic 10/09/17 22:12 10/10/17 21:28 Cavilon TOP 1 applic PRN PRN Administration Skin Care Non Formulary Med ( 4 each 10/10/17 09:00 10/11/17 08:07 Enzalutamide [Xtandi PO Not Given ] 40 Mg) Capsule DAILY MONSTER Saccharomyces Boulardii 500 mg 10/10/17 07:00 10/11/17 08:05 Florastor PO 500 mg BIDWM MONSTER Administration Simethicone 80 mg 10/10/17 23:45 10/11/17 10:31 Mylicon PO 80 mg 0900,1300,1800,2100 MONSTER Administration Sodium Chloride 10 ml 10/09/17 09:00 10/11/17 10:32 Normal Saline Flush 0.9% IVP Not Given 0100,0900,1700 MONSTER Vancomycin HCl 125 mg 10/09/17 15:00 10/11/17 10:32 Vancocin PO 125 mg QID MONSTER Administration - Lab Result Fish Bone Diagrams: 10/11/17 06:12 10/11/17 06:12 - Additional Planning My Orders: My Active Orders 10/11/17 Consult [Oncology Consult] [CONS] Routine TROPONIN I [IAI] Stat 10/11/17 11:27 oxyCODONE [Roxicodone] 5 mg PO Q8HR PRN 10/11/17 11:28 Lidocaine Patch 5% [Lidoderm Patch] 1 patch TOP DAILY PRN 10/11/17 13:00 Ferrous Gluconate [Fergon] 324 mg PO DAILYWM Folic Acid 1 mg PO DAILY 10/11/17 14:00 Gabapentin [Neurontin] 900 mg PO TID 10/11/17 17:45 TROPONIN I [IAI] Timed 10/12/17 05:00 MAGNESIUM [CHEM] DAILYLAB 10/12/17 13:00 Metoprolol Succinate [Toprol Xl] 25 mg PO DAILY 10/13/17 05:00 MAGNESIUM [CHEM] DAILYLAB Subjective - Subjective Patient Reports: Resting Comfortably Nursing Reports: Other (Had only 1 liquid BM yesterday.Has bloating and abdominal gassy distension and 1 liquid brown BM today so far. Telemetry shows Afib intermittently.) Objective Vital Signs: Vital Signs - 24 hr 10/10/17 10/10/17 10/10/17 13:00 15:26 19:51 Temperature 36.5 C 36.4 C L 37.0 C Heart Rate [ 96 96 89 Brachial] Respiratory 18 18 18 Rate Blood Pressure 148/70 H 135/59 H 151/70 H [Right Brachial artery] O2 Saturation 98 98 98 10/10/17 10/11/17 10/11/17 23:41 05:00 07:38 Temperature 36.0 C L 36.0 C L 36.3 C L Heart Rate [ 89 97 94 Brachial] Respiratory 16 20 18 Rate Blood Pressure 130/70 159/74 H 154/82 H [Right Brachial artery] O2 Saturation 98 97 96 10/11/17 10:52 Temperature Heart Rate [ 101 H Brachial] Respiratory Rate Blood Pressure 145/80 H [Right Brachial artery] O2 Saturation Oxygen O2 Source Room air I&O (Last 24 Hrs): Intake and Output Totals x24h 10/09/17 10/10/17 10/11/17 23:59 23:59 23:59 Intake Total 1480 3947.333 1120 Output Total 200 575 200 Balance 1280 3372.333 920 General: Alert, Oriented x3 HEENT: EOMI, Mucous membr. moist/pink, Other (Pale) Neck: Supple, No JVD Neuro: Non Focal Cardiovascular: Regular rate, No murmurs Respiratory: No respiratory distress, Breath sounds nml Abdomen: Other (Mildly distended, hypertympanic, mildly tender, decreased bowel sounds.) Extremities: No edema - Results Results: Laboratory Results WBC 6.4 x10^3/uL (4.8-10.8) 10/11/17 06:12 RBC 2.95 10^6/uL (4.70-6.10) L 10/11/17 06:12 Hgb 8.6 g/dL (14.0-18.0) L 10/11/17 06:12 Hct 25.6 % (42.0-52.0) L 10/11/17 06:12 MCV 86.7 fL (80.0-94.0) 10/11/17 06:12 MCH 29.2 pg (27.0-31.0) 10/11/17 06:12 MCHC 33.6 g/dL (32.0-36.0) 10/11/17 06:12 RDW 15.1 % (12.0-15.0) H 10/11/17 06:12 Plt Count 307 10^3/uL (130-450) 10/11/17 06:12 MPV 7.1 fL (7.4-11.4) L 10/11/17 06:12 Neut # (Auto) Not Reportable 10/09/17 02:30 Lymph # (Auto) Not Reportable 10/09/17 02:30 [place] # (Auto) Not Reportable 10/09/17 02:30 Eos # (Auto) Not Reportable 10/09/17 02:30 Baso # (Auto) Not Reportable 10/09/17 02:30 Absolute Nucleated RBC Not Reportable 10/09/17 02:30 Total Counted 100 10/09/17 02:30 Band Neuts % (Manual) 33 % (0-10) H 10/09/17 02:30 Abnorm Lymph % (Manual) 0 % 10/09/17 02:30 Metamyelocytes % 3 % (-0) H 10/09/17 02:30 Nucleated RBC % Not Reportable 10/09/17 02:30 Neutrophils # (Manual) 4.8 10^3/uL (1.5-6.6) 10/09/17 02:30 Lymphocytes # (Manual) 0.7 10^3/uL (1.5-3.5) L 10/09/17 02:30 Monocytes # (Manual) 0.4 10^3/uL (0.0-1.0) 10/09/17 02:30 Eosinophils # (Manual) 0.0 10^3/uL (0-0.7) 10/09/17 02:30 Basophils # (Manual) 0.0 10^3/uL (0-0.1) 10/09/17 02:30 Differential Comment MANUAL DIFFERENTIAL 10/09/17 02:30 Platelet Estimate NORMAL (130-450,000) (NORMAL) 10/09/17 02:30 Platelet Morphology NORMAL APPEARANCE (NORMAL) 10/09/17 02:30 RBC Morph Micro Appear NORMAL APPEARANCE (NORMAL) 10/09/17 02:30 PT 13.9 secs (9.9-12.6) H 10/11/17 06:12 INR 1.2 (0.8-1.2) 10/11/17 06:12 Sodium 133 mmol/L (135-145) L 10/11/17 06:12 Potassium 4.2 mmol/L (3.5-5.0) 10/11/17 06:12 Chloride 105 mmol/L (101-111) 10/11/17 06:12 Carbon Dioxide 18 mmol/L (21-32) L 10/11/17 06:12 Anion Gap 10.0 (6-13) 10/11/17 06:12 BUN 27 mg/dL (6-20) H 10/11/17 06:12 Creatinine 1.2 mg/dL (0.6-1.2) 10/11/17 06:12 Estimated GFR (MDRD) 60 (>89) L 10/11/17 06:12 Glucose 99 mg/dL (70-100) 10/11/17 06:12 POC Whole Bld Glucose 107 mg/dL (70 - 100) H 10/09/17 08:53 Lactic Acid 1.6 mmol/L (0.5-2.2) 10/09/17 02:30 Calcium 9.4 mg/dL (8.5-10.3) 10/11/17 06:12 Phosphorus 4.6 mg/dL (2.5-4.6) 10/09/17 02:30 Magnesium 1.8 mg/dL (1.7-2.8) 10/11/17 06:12 Iron 29 ug/dL (45-182) L 10/11/17 06:12 TIBC 153 ug/dL (250-450) L 10/11/17 06:12 % Saturation 19 % (20-50) L 10/11/17 06:12 Transferrin 109 mg/dL (180-329) L 10/11/17 06:12 Total Bilirubin 0.5 mg/dL (0.2-1.0) 10/09/17 02:30 AST 38 IU/L (10-42) 10/09/17 02:30 ALT 16 IU/L (10-60) 10/09/17 02:30 Alkaline Phosphatase 144 IU/L (42-121) H 10/09/17 02:30 Troponin I < 0.04 ng/mL (<0.49) 10/09/17 06:01 B-Natriuretic Peptide 269 pg/mL (5-100) H 10/09/17 19:42 Total Protein 6.7 g/dL (6.7-8.2) 10/09/17 02:30 Albumin 2.4 g/dL (3.2-5.5) L 10/09/17 02:30 Globulin 4.3 g/dL (2.1-4.2) H 10/09/17 02:30 Albumin/Globulin Ratio 0.6 (1.0-2.2) L 10/09/17 02:30 Lipase 73 U/L (22-51) H 10/09/17 02:30 Vitamin B12 540 pg/mL (180-914) 10/11/17 06:12 Folate 4.64 ng/mL (5.90 - >24.8) L 10/11/17 06:12 Urine Color YELLOW 10/09/17 04:25 Urine Clarity SL. CLOUDY (CLEAR) 10/09/17 04:25 Urine pH 6.0 PH (5.0-7.5) 10/09/17 04:25 Ur Specific Riley 1.020 (1.002-1.030) 10/09/17 04:25 Urine Protein 30 mg/dL (NEGATIVE) H 10/09/17 04:25 Urine Glucose (UA) NEGATIVE mg/dL (NEGATIVE) 10/09/17 04:25 Urine Ketones NEGATIVE mg/dL (NEGATIVE) 10/09/17 04:25 Urine Occult Blood MODERATE (NEGATIVE) H 10/09/17 04:25 Urine Nitrite NEGATIVE (NEGATIVE) 10/09/17 04:25 Urine Bilirubin NEGATIVE (NEGATIVE) 10/09/17 04:25 Urine Urobilinogen 0.2 (NORMAL) E.U./dL (NORMAL) 10/09/17 04:25 Ur Leukocyte Esterase NEGATIVE (NEGATIVE) 10/09/17 04:25 Urine RBC 6-10 /HPF (0-5) H 10/09/17 04:25 Urine WBC 0-3 /HPF (0-3) 10/09/17 04:25 Ur Squamous Epith Cells FEW Squamous (<= Few) 10/09/17 04:25 Urine Bacteria None Seen /HPF (None Seen) 10/09/17 04:25 Urine Casts 0-2 Hyaline Casts /LPF3-5 Granular Casts /LPF 10/09/17 04:25 Urine Casts 0-2 Hyaline Casts /LPF3-5 Granular Casts /LPF 10/09/17 04:25 Ur Microscopic Review INDICATED 10/09/17 04:25 Urine Culture Comments NOT INDICATED 10/09/17 04:25
[2017-10-11] MEDS ORDERED: FOLIC ACID 1 MG TABLET PO SCH (13:00)
[2017-10-11] MEDS ORDERED: FERROUS GLUCONATE 324 MG TABLET PO SCH (13:00)
[2017-10-11] MEDS ORDERED: GABAPENTIN 300 MG CAPSULE PO SCH ×2 (14:00→22:00)
[2017-10-11] MEDS ORDERED: ASPIRIN EC 81 MG TABLET PO SCH (15:00)
[2017-10-11] MEDS ORDERED: METOPROLOL SUCCINATE 25 MG TABLET PO SCH ×2 (15:43→23:00)
[2017-10-11] MEDS: DIPHENOX/ATROPINE 2.5/0.025 MG TABLET PO PRN (16:17)
[2017-10-11] MEDS ORDERED: HYDROmorphone 2 MG/ML VIAL IVP PRN (17:45)
[2017-10-11] MEDS ORDERED: HYDROmorphone 1 MG/ML CARPUJECT ONE (17:47)
[2017-10-11 17:55] VITALS: BP 177/113
[2017-10-11] MEDS ORDERED: SODIUM CHLORIDE FLUSH 0.9% 10 ML SYRINGE IVP PRN (22:06)
[2017-10-11] MEDS ORDERED: PROCHLORPERAZINE 10 MG/2 ML VIAL IVP PRN (22:06)
[2017-10-11] MEDS ORDERED: TEMAZEPAM 15 MG CAPSULE PO PRN (22:06)
[2017-10-11] MEDS ORDERED: MORPHINE ER 15 MG TABLET PO SCH (22:24)
[2017-10-11] MEDS ORDERED: HYDROmorphone 0.5 MG/0.5 ML SYRINGE IVP PRN (22:27)
[2017-10-11] MEDS ORDERED: DIPHENOX/ATROPINE 2.5/0.025 MG TABLET PO PRN (22:27)
[2017-10-11] MEDS ORDERED: SIMETHICONE CHEW 80 MG TABLET PO SCH (23:00)
[2017-10-11] MEDS ORDERED: DEXAMETHASONE 1 MG TABLET PO SCH (23:00)
[2017-10-11] MEDS ORDERED: SACCHAROMYCES BOULARDII 250 MG CAPSULE PO SCH (23:00)
[2017-10-11] MEDS ORDERED: D5.45NS W/20 MEQ KCL 1,000 ML IV SCH (23:00)
[2017-10-12] MEDS ORDERED: SODIUM CHLORIDE FLUSH 0.9% 10 ML SYRINGE IVP SCH (01:00)
[2017-10-12 05:44] LABS: HGB - HEMOGLOBIN 8.4 g/dL (14.0-18.0); MEAN CORPUSCULAR HEMOGLOBIN 29.7 pg (27.0-31.0); MEAN CORPUSCULAR HGB CONC 34.1 g/dL (32.0-36.0); MEAN CORPUSCULAR VOLUME 87.1 fL (80.0-94.0); MEAN PLATELET VOLUME 7.4 fL (7.4-11.4); RED BLOOD COUNT 2.82 10^6/uL (4.70-6.10)
[2017-10-12 05:51] LABS: ALBUMIN 1.9 g/dL (3.2-5.5); ALBUMIN/GLOBULIN RATIO 0.5 (1.0-2.2); BILIRUBIN,TOTAL 0.5 mg/dL (0.2-1.0); CALCIUM 9.3 mg/dL (8.5-10.3); TOTAL PROTEIN 5.8 g/dL (6.7-8.2)
[2017-10-12] MEDS ORDERED: GABAPENTIN 300 MG CAPSULE PO SCH (06:00)
[2017-10-12] MEDS ORDERED: DEXAMETHASONE 4 MG TABLET PO SCH ×2 (08:00)
[2017-10-12] MEDS ORDERED: VANCOMYCIN 125 MG CAPSULE PO SCH (09:00)
[2017-10-12] MEDS ORDERED: MORPHINE ER 15 MG TABLET PO SCH (09:00)
[2017-10-12] MEDS ORDERED: POLYETHYLENE GLYCOL 3350 17 GM PACKET PO SCH (09:00)
[2017-10-12] MEDS ORDERED: METOPROLOL SUCCINATE 25 MG TABLET PO SCH (13:00)
[2017-10-13 05:45] LABS: HGB - HEMOGLOBIN 8.3 g/dL (14.0-18.0); MEAN CORPUSCULAR HEMOGLOBIN 28.8 pg (27.0-31.0); MEAN CORPUSCULAR VOLUME 87.4 fL (80.0-94.0); MEAN PLATELET VOLUME 7.2 fL (7.4-11.4); RED BLOOD COUNT 2.86 10^6/uL (4.70-6.10); RED CELL DISTRIBUTION WIDTH 15.4 % (12.0-15.0); WHITE BLOOD COUNT 11.5 x10^3/uL (4.8-10.8)
[2017-10-13 05:57] LABS: ALBUMIN/GLOBULIN RATIO 0.5 (1.0-2.2); BILIRUBIN,TOTAL 0.5 mg/dL (0.2-1.0); CALCIUM 9.5 mg/dL (8.5-10.3); TOTAL PROTEIN 5.7 g/dL (6.7-8.2)
[2017-10-14 06:21] LABS: HGB - HEMOGLOBIN 8.9 g/dL (14.0-18.0); MEAN CORPUSCULAR HEMOGLOBIN 28.7 pg (27.0-31.0); MEAN CORPUSCULAR HGB CONC 32.1 g/dL (32.0-36.0); MEAN CORPUSCULAR VOLUME 89.5 fL (80.0-94.0); MEAN PLATELET VOLUME 7.9 fL (7.4-11.4); RED BLOOD COUNT 3.1 10^6/uL (4.70-6.10); RED CELL DISTRIBUTION WIDTH 15.5 % (12.0-15.0); WHITE BLOOD COUNT 20.6 x10^3/uL (4.8-10.8)
[2017-10-14 06:30] LABS: ALBUMIN 2.1 g/dL (3.2-5.5); ALBUMIN/GLOBULIN RATIO 0.5 (1.0-2.2); ALKALINE PHOSPHATASE 122 IU/L (42-121); ALT ALANINE AMINOTRANSFERASE 12 IU/L (10-60); AST ASPARTATE AMINOTRANSFERASE 24 IU/L (10-42); BILIRUBIN,TOTAL < 0.2 mg/dL (0.2-1.0); BUN - BLOOD UREA NITROGEN 15 mg/dL (6-20); CALCIUM 9.6 mg/dL (8.5-10.3); CARBON DIOXIDE - CO2 18 mmol/L (21-32); CHLORIDE 102 mmol/L (101-111); CREATININE 0.8 mg/dL (0.6-1.2); GFR - MDRD 96 (>89); GLUCOSE 114 mg/dL (70-100); SODIUM 132 mmol/L (135-145)
--- NOTE | 2017-10-14 09:55 | DISCHARGE SUMMARY ---
Physician: Saba Doe MD DATE OF ADMISSION: 10/09/2017 DATE OF DISCHARGE: 10/11/2017 PRIMARY CARE PHYSICIAN: Pramod Grigsby MD. HISTORY OF PRESENT ILLNESS: This is a 71-year-old white male with a history of prostate cancer with metastasis and recently diagnosed neuroendocrine tumor with metastasis to the liver. He has chronic pain in his pelvis from the prostate cancer and also pain due to lumbar stenosis causing pain in his back. He was seen by Palliative Care, Chasidy Bellamy, during several recent visits in order to adjust his narcotics, and he was started on methadone. Patient developed diarrhea and weakness and presented to the emergency room after being advised to go there by Chasidy Bellamy when a low blood pressure was measured. He was admitted for management of diarrhea and weakness and dehydration. HOSPITAL COURSE AND DISCHARGE DIAGNOSES Please see the detailed Progress Note from 10/11/2017 which discussed each of these diagnoses and the management includin. Paroxysmal atrial fibrillation. 2. Clostridium difficile diarrhea. 3. Dehydration. 4. Hyponatremia. 5. Acute kidney injury, superimposed on chronic kidney injury. 6. Anemia. 7. Malignant neuroendocrine tumor, metastatic to liver. 8. Chronic pain due to malignant neoplastic disease and low back pain. 9. Spinal stenosis. 10. Abnormal EKG. LABS AND IMAGING: Please see the detailed Progress Note from 10/11/2017 which discussed these. DISCHARGE AMA: On the evening of 10/11/2017, patient decided that he "had enough ," requested to leave. Chasidy Bellamy NP saw him in person and recommended he stay. I explained to him that leaving was against medical advice because he had multiple problems that were still active, and he was not stable to be discharged. He refused to comply and signed out against medical advice. ALLERGIES: NONE MEDICATIONS AT THE TIME OF DISCHARGE: The patient was offered new prescriptions to complete his Clostridium difficile diarrhea, atrial fibrillation with rapid ventricular response treatment, and pain management, and he refused all of these prescriptions. CONDITION AT THE TIME OF DISCHARGE: Guarded. PHYSICAL EXAMINATION at discharge: VITAL SIGNS: Blood pressure 177/113, heart rate 121 in rapid atrial fibrillation, afebrile, room air saturation 97%. HEENT: Pallor and dry oral mucosa. NECK: Without JVD or carotid bruits. CHEST: Clear. HEART: Tachycardic. No murmur. ABDOMEN: Distended, hypertympanic with decreased bowel sounds, tender to light palpation, but no rebound. EXTREMITIES: No clubbing, cyanosis, or edema. NEUROLOGIC: Intact, but patient appears fatigued and speaks slowly and quietly. FOLLOWUP: Follow up with his PCP in the next 1-2 days, and patient was advised to return to the ER if he had continued problems. CODE STATUS: Throughout this admission, he had a Full Code status. By stating "I 've had enough" and "what's the use", he may be requesting a different code status. Time required to complete this entire dictation, chart review, and discharge: 30 minutes. cc: NORMAN Su MD Xiaowen Wang, MD TD: 10/13/2017 17:41 MTDD
[2017-10-15 05:28] LABS: HGB - HEMOGLOBIN 8.3 g/dL (14.0-18.0); MEAN CORPUSCULAR HEMOGLOBIN 29.5 pg (27.0-31.0); MEAN CORPUSCULAR VOLUME 86.5 fL (80.0-94.0); MEAN PLATELET VOLUME 7.4 fL (7.4-11.4); RED BLOOD COUNT 2.82 10^6/uL (4.70-6.10); RED CELL DISTRIBUTION WIDTH 14.9 % (12.0-15.0); WHITE BLOOD COUNT 12.9 x10^3/uL (4.8-10.8)
[2017-10-15 05:39] LABS: ALBUMIN/GLOBULIN RATIO 0.5 (1.0-2.2); BILIRUBIN,TOTAL 0.8 mg/dL (0.2-1.0); CALCIUM 9.5 mg/dL (8.5-10.3); CREATININE 0.8 mg/dL (0.6-1.2); TOTAL PROTEIN 5.7 g/dL (6.7-8.2)
== END 2017-10-11 18:55 | disposition left against medical advice (07) | DRG 372 ==
LOC: EDUNIT# → SUPCPDRO 02:00 → ED 02:00 → MS2 04:28 → OBSVTOIN 08:47
PROVIDERS: ADMIT Hospitalist; ATTEND Internal Medicine
DX: A04.72 Enterocolitis due to Clostridium difficile, not specified as recurrent (principal); D64.9 Anemia, unspecified; E87.1 Hypo-osmolality and hyponatremia; C7B.8 Other secondary neuroendocrine tumors; N17.9 Acute kidney failure, unspecified; C79.51 Secondary malignant neoplasm of bone; C78.7 Secondary malignant neoplasm of liver and intrahepatic bile duct; C7A.8 Other malignant neuroendocrine tumors; I47.2 Ventricular tachycardia; E86.0 Dehydration; R53.1 Weakness; D63.0 Anemia in neoplastic disease; Z79.899 Other long term (current) drug therapy; I48.0 Paroxysmal atrial fibrillation; N18.9 Chronic kidney disease, unspecified; C61 Malignant neoplasm of prostate; Z51.5 Encounter for palliative care; R41.82 Altered mental status, unspecified; T40.3X5A Adverse effect of methadone, initial encounter; Y92.239 Unspecified place in hospital as the place of occurrence of the external cause; M48.061 Spinal stenosis, lumbar region without neurogenic claudication; R06.2 Wheezing; R94.31 Abnormal electrocardiogram [ECG] [EKG]; G89.3 Neoplasm related pain (acute) (chronic)
CPT/HCPCS: 36415; 71045; 74018; 80048; 80053; 81001; 81003; 82607; 82746; 83540; 83605; 83690; 83735; 83880; 84100; 84439; 84466; 84481; 84484; 85025; 85027; 85610; 87040; 87045; 87046; 87086; 87493; 93005; 93306; 96360; 96361; 99233; 99284

== ENCOUNTER 2017-10-11 21:21 | Outpatient (CLI) | payer MEDICARE, OTHER | END 2017-10-11 21:22 | disposition critical access hospital (66) | LOC: EMS 21:21 | PROVIDERS: ATTEND Surgery | DX: R53.1 Weakness (principal); R19.7 Diarrhea, unspecified | CPT/HCPCS: A0425; A0429 ==

== ENCOUNTER 2017-10-11 22:11 | Inpatient (IN) | payer MEDICARE, OTHER ==
--- NOTE | 2017-10-11 23:02 | HISTORY & PHYSICAL EXAMINATION ---
Chief Complaint - Chief Complaint Chief Complaint: pain, diarrhea History of Present Illness - Admitted From Admitted From:: Home - History Obtained From History obtained from: Patient, , ED Physician - History of Present Illness HPI Comment/Other: Mr. Rafael Mishra is a very unfortunate 71-year-old white male who has a history significant for metastatic prostate cancer for which he has been treated at the [facility] clinic here at [facility]. Unfortunately about a week ago he was diagnosed with a second aggressive cancer, a neuroendocrine tumor not related to the prostate cancer, which is now in his liver and kidneys. Over the last few days the patient has been having diarrhea and has had decreased oral intake of fluids, and he has been becoming weaker daily. He came to the emergency department with complaints of weakness on 10/09/2017 was found to be hypotensive and very dehydrated. He was rehydrated and sent home with a caution to return if he should continue to feel weak or should his diarrhea persist. Of note is that the patient has not taken any Lomotil or Imodium for the diarrhea. The patient did go home but continued to feel weak and the diarrhea did continue so he came back to the emergency department later that evening. On re-presentation to the emergency department that evening patient was found to have an acutely elevated creatinine and his hemoglobin had dropped significantly in just 5 weeks, going from 14.3 to 8.8 on admission. It was therefore felt to be prudent to bring the patient in to the hospital, place him in an observation bed, where he could be rehydrated and his electrolyte abnormalities might be corrected. Shortly after admission stool cultures which were collected in the ED came back positive for Clostridium difficile and the patient was started on vancomycin. He was still somewhat sedated/obtunded and so Narcan was given which did correct his altered mental status and the patient "woke up". He has refused stronger opiates since that time but his pain has continued to increase. Earlier this evening the patient became "fed up" with everything and despite multiple visits from the hospitalist and Chasidy Bellamy, his palliative care provider, he decided to leave the hospital AGAINST MEDICAL ADVICE. He went home for couple of hours and has now returned to the hospital. 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 The patient was adopted and has no knowledge of his family history. Living arrangement: At home Living Situation: With spouse/s.o. - Substance History Use: Uses substance without health or social issues: Cannabis Abuse: Recurrent use of substance despite neg consequences: NONE Dependence: Experiences withdrawal or developed tolerances: NONE - POLST Patient has POLST: No POLST Status: Full Code Meds/Allgy - Home Medications Home Medications: Ambulatory Orders Medication Instructions Recorded Confirmed Enzalutamide [Xtandi] 160 mg PO DAILY 03/30/17 10/12/17 Gabapentin 900 mg PO TID 07/27/17 10/12/17 Dexamethasone 4 mg PO 0700 09/28/17 10/12/17 Methadone 2.5 mg PO TID 09/28/17 10/12/17 Sennosides [Senna] 17.2 mg PO TID 09/28/17 10/12/17 Leuprolide [Lupron] 22.5 mg IM Q84D 10/09/17 10/12/17 - Allergies Allergies/Adverse Reactions: Allergies Allergy/AdvReac Type Severity Reaction Status Date / Time No Known Drug Allergies Allergy Verified 05/26/16 11:30 Review of Systems - Constitutional Constitutional: reports: Fatigue, Weakness. denies: Fever, Chills - Eyes Eyes: denies: Pain, Irritation, Amaurosis, Blurred vision, Dipolpia - Ears, Nose & Throat Ears, Nose & Throat: denies: Ear pain, Hearing loss, Tinnitus, Vertigo, Nasal pain, Nasal discharge, Nosebleeds - Cardiovascular Cariovascular: denies: Irregular heart rate, Palpitations, Chest pain, Lightheadedness, Syncope, Orthopnea - Respiratory Respiratory: denies: Cough, Sputum production, Wheezing, Snoring, Hemoptysis, Orthopnea, SOB at rest - Gastrointestinal Gastrointestinal: reports: Abdominal pain, Abdominal distention, Diarrhea, Bloating. denies: Rectal bleeding, Nausea, Vomiting - Genitourinary Genitourinary: denies: Dysuria, Frequency, Urgency, Hematuria - Musculoskeletal Musculoskeletal: denies: Muscle pain, Back pain, Muscle aches, Stiffness, Gout, Joint pain, Joint swelling - Integumentary Integumentary: denies: Rash, Pruritis, Lesions, Dryness - Neurological Neurological: denies: General weakness, Focal weakness, Headache, Dizziness - Psychiatric Psychiatric: denies: Depression, Anxiety, Suicidal, Hallucinations - Endocrine Endocrine: denies: Polyuria, Polydypsia, Polyphagia - Hematologic/Lymphatic Hematologic/Lymphatic: denies: Anemia, Bruising, Petechiae, Lymphadenopathy - All Other Systems All Other Systems: reports: Reviewed and negative Exam - Vital Signs Reviewed Vital Signs: Yes Vital Signs: Vital Signs x48h Temp Pulse Resp BP Pulse Ox 10/11/17 17:54 121 H 177/113 H 10/11/17 16:06 36.5 C 107 H 20 147/83 H 97 - Physical Exam General Appearance: positive: Alert, Mild distress Eyes Bilateral: positive: Normal inspection, PERRL, EOMI, No lid inflammation, Conjunctivae nml, No scleral icterus ENT: positive: ENT inspection nml, Pharynx nml, No signs of dehydration Neck: positive: Nml inspection, Thyroid nml, No JVD, Trachea midline. negative : Thyromegaly Respiratory: positive: Chest non-tender, No respiratory distress, Breath sounds nml. negative: Wheezes, Rales, Rhonchi Cardiovascular: positive: Regular rate & rhythm, No murmur, No gallop Peripheral Pulses: positive: 1+ Abdomen: positive: Non-tender, No organomegaly, Nml bowel sounds, No distention. negative: Guarding, Rebound Back: positive: Nml inspection. negative: CVA tenderness (R), CVA tenderness (L ) Skin: positive: No rash, Warm, Dry, Pallor. negative: Cyanosis Extremities: positive: Non-tender, Full ROM, Nml appearance, No pedal edema Neurologic/Psychiatric: positive: Oriented x3, CN's nml (2-12), Motor nml, Sensation nml, Depressed mood/affect Conclusion/Plan - Problem List (1) Chronic pain due to malignant neoplastic disease Conclusion/Plan: The patient is reluctant to go back on the methadone. I have started him on [id number] Decadron and MS Contin, with as needed oral oxycodone and IVP Dilaudid. Chasidy Bellamy may want to change these medications as she is working with the patient for his pain management as an outpatient. (2) Dehydration Conclusion/Plan: The patient's kidney function is responding well to his rehydration and his creatinine has come from 2.3 on admission on the 18th down to 1.2 this morning. We will continue with IV fluids as he is not showing any signs of fluid overload (3) Anemia Conclusion/Plan: The patient is pale and ill-appearing but is not significantly short of breath or showing any other signs of hypoxia. We will continue to monitor his hemoglobin and if the patient becomes symptomatic or his hemoglobin drops any further we will consider transfusing him for palliative reasons. (4) Acute kidney injury superimposed on chronic kidney disease Conclusion/Plan: As noted above there has been significant improvement in the patient's creatinine over the last few days. We will continue him on the IV fluids and continue to monitor his creatinine and BUN as needed. (5) Prostate cancer metastatic to bone Conclusion/Plan: Patient has metastatic prostate cancer and a newly diagnosed small cell neuroendocrine tumor. He is wishing to continue treatment at this time. All treatment will be per his oncologist. (6) Metastatic malignant neuroendocrine tumor to liver Conclusion/Plan: Patient has metastatic prostate cancer and a newly diagnosed small cell neuroendocrine tumor. He is wishing to continue treatment at this time. All treatment will be per his oncologist. (7) C. difficile diarrhea Conclusion/Plan: Patient has been taking vancomycin orally since his admission a couple of days ago. We will continue him on this until he no longer comes back positive for the C. difficile toxin. Lomotil has helped with the diarrhea and we will continue that as well. I have also started the patient on Florastor. - Lab Results Lab results reviewed: Yes Core Measures - Anticipated LOS I expect patient to be DC'd or transferred within 96 hours.: Yes - DVT/VTE - Prophylaxis VTE/DVT Device ordered at admit?: Yes
[2017-10-12] MEDS ORDERED: PROCHLORPERAZINE 10 MG/2 ML VIAL IVP PRN (00:15)
[2017-10-12] MEDS ORDERED: DIPHENOX/ATROPINE 2.5/0.025 MG TABLET PO PRN (00:19)
[2017-10-12] MEDS ORDERED: TEMAZEPAM 15 MG CAPSULE PO PRN (00:21)
[2017-10-12] MEDS: METOPROLOL SUCCINATE 50 MG TABLET PO SCH ×2 (01:19→09:30)
[2017-10-12] MEDS: SIMETHICONE CHEW 80 MG TABLET PO SCH ×5 (01:21→22:25)
[2017-10-12] MEDS: oxyCODONE 5 MG TABLET PO PRN (01:21)
[2017-10-12] MEDS: DEXAMETHASONE 4 MG TABLET PO SCH ×3 (01:21→17:18)
[2017-10-12] MEDS: SODIUM CHLORIDE FLUSH 0.9% 10 ML SYRINGE IVP SCH ×4 (01:22→20:05)
[2017-10-12] MEDS: SACCHAROMYCES BOULARDII 250 MG CAPSULE PO SCH ×3 (01:22→17:19)
[2017-10-12] MEDS: D5.45NS W/20 MEQ KCL 1,000 ML IV SCH ×2 (01:25→11:08)
[2017-10-12] MEDS: HYDROmorphone 1 MG/ML CARPUJECT IVP PRN ×3 (04:04→20:05)
[2017-10-12] MEDS: GABAPENTIN 300 MG CAPSULE PO SCH ×3 (05:51→22:25)
[2017-10-12] MEDS ORDERED: LEUPROLIDE 22.5 MG IM SCH (08:00)
[2017-10-12] MEDS: VANCOMYCIN 125 MG CAPSULE PO SCH ×4 (09:30→22:25)
[2017-10-12] MEDS: MORPHINE ER 15 MG TABLET PO SCH ×2 (09:30→22:25)
[2017-10-12] MEDS: POLYETHYLENE GLYCOL 3350 17 GM PACKET PO SCH (09:31)
[2017-10-12] MEDS: Enzalutamide [Xtandi] 160 MG PO SCH (09:31)
--- NOTE | 2017-10-12 12:14 | PROVIDER PROGRESS NOTE ---
Assessment/Plan - Problem List (1) C. difficile diarrhea Assessment/Plan: Stool culture is neg for bacteria (Shigell, salmonell, etc). BMs are decreasing and stool this am looked to be better formed Patient left AMA yesterday but returned 2 hours later Continue po Vanco, for a 10 day course today is day 3 of 10 Continue Florastor. Advance diet with nutritional supplementation Dehydrogenation Supervisor to see to address calories and protein. (2) Paroxysmal A-fib Assessment/Plan: Afib started on 10/11/17 at 0200 over night this last night and he is in and out of it. When his HR is at it's highest, he is in Afib. He had an Echo done and showed normal resting LVEF and no pulminary HTN. Trop negative. TSh pending, T3 and T4 were normal Continue Toprol XL 50 mg daily, to control HRs when he is in Afib, and hopefully B-claudette will prevent Afib. HR currently controlled in the 70s-80s His CHADS score = 0 (no CHF, HTN, Age>75, DM or Stroke hx), therefore no anticoagulation needed, but started a baby ASA daily. (3) Dehydration Assessment/Plan: BUN/creat ratio have improved and pt appears less dry. Continue iv hydration and monitor daily BMP and Mg. (4) Hyponatremia Assessment/Plan: Resolved with iv saline and on Dexamethasone since before admission. Continue saline iv. Monitor daily Na. (5) Acute kidney injury superimposed on chronic kidney disease Assessment/Plan: Resolved with IVFs Continue hydration and monitor daily labs. (6) Anemia Assessment/Plan: Labs show low iron levels and low folate. Will continue oral ferrous gluconate daily and oral folic acid daily. 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 He was on Gabapentin 900 mg tid at home and Oxycodone was being decreased and Methadone was at 2.5 mg bid and just increased to 5 mg bid. Here he got a 5 mg dose of methadone, which caused over-sedation. Now the patient is declining to take any Methadone. Patient states his pain is controlled Currently he is on gabapentin 300 mg 3 times daily, Dilaudid 2 mg IV every hour as needed, morphine extended release 30 mg p.o. twice daily and dexamethasone 4 mg twice daily (9) Spinal stenosis Assessment/Plan: Continue with pain management. Elective lumbar surgery is no longer planned. (10) Abnormal EKG Assessment/Plan: Echo showed normal resting LVEF. He would have needed a pre-op pharmaceutical stress test, but no lumbar surgery is being considered any longer. (11) Severe protein calorie malnutrition Assessment/Plan: Patient has nutritional intake of less than 50% of recommended intake for greater than 2 weeks, he has had a weight loss of 13% in 6 months and has significantly reduced functional capacity with increasing weakness. Plan: Ensure with meals 1 mg folic acid daily Iron supplements - Current Meds Current Meds: Current Medications Generic Name Dose Route Start Last Admin Trade Name Freq PRN Reason Stop Dose Admin Dexamethasone 4 mg 10/12/17 01:00 10/12/17 09:30 Decadron PO 4 mg BIDWM MONSTER Administration Gabapentin 300 mg 10/12/17 06:00 10/12/17 05:51 Neurontin PO 300 mg TID MONSTER Administration Hydromorphone HCl 2 mg 10/12/17 00:15 10/12/17 04:04 Dilaudid Inj Carp IVP 2 mg Q1HR PRN Administration Pain 8 to 10 Potassium Chloride/Dextrose/Sod Cl 1,000 mls @ 100 mls/hr 10/12/17 01:00 11:08 D5.45ns W/20 Meq Kcl IV 100 mls/hr .Q10H MONSTER Administration Metoprolol Succinate 50 mg 10/12/17 01:00 10/12/17 09:30 Toprol Xl PO 50 mg DAILY MONSTER Administration Morphine Sulfate 30 mg 10/12/17 09:00 10/12/17 09:30 PO 30 mg BID MONSTER Administration Oxycodone HCl 5 mg 10/12/17 00:15 10/12/17 01:21 Roxicodone PO 5 mg Q4HR PRN Administration Pain 5 to 7 Enzalutamide [Xtandi 160 each 10/12/17 09:00 10/12/17 09:31 ] 160 Mg PO Not Given DAILY [facility] Polyethylene Glycol 17 gm 10/12/17 09:00 10/12/17 09:31 Miralax PO Not Given DAILY [facility]STER Saccharomyces Boulardii 500 mg 10/12/17 01:00 10/12/17 09:30 Florastor PO 500 mg BIDWM MONSTER Administration Simethicone 80 mg 10/12/17 01:00 10/12/17 09:30 Mylicon PO 80 mg 0900,1300,1800,2100 MONSTER Administration Sodium Chloride 10 ml 10/12/17 01:00 10/12/17 09:31 Normal Saline Flush 0.9% IVP Not Given 0100,0900,1700 [facility] Vancomycin HCl 125 mg 10/12/17 09:00 10/12/17 09:30 Vancocin PO 125 mg QID MONSTER Administration - Lab Result Lab results reviewed: Yes - Diagnostic Imaging Results Diagnostic Imaging Results: Final report reviewed - Additional Planning Condition/Complexity: Guarded My Orders: My Active Orders 10/12/17 09:00 Patient Own Med [Patient Own Medication] 160 each PO DAILY Plan Discussed with:: Patient Time Spent: 31-60 minutes Subjective - Subjective Patient Reports: Other (Patient is uncomfortable and in significant distress. He denies any pain but seems anxious. He states his pain is controlled but he seems very concerned. He denies any abdominal pain. He states he diarrhea is improving.) Nursing Reports: No Complaints Objective Vital Signs: Vital Signs - 24 hr 10/11/17 10/12/17 10/12/17 22:40 01:19 04:55 Temperature 37 C 36.4 C L 36.6 C Heart Rate [ 65 69 67 Radial] Respiratory 16 18 20 Rate Blood Pressure 152/82 H 137/97 H 148/86 H [Right Brachial artery] O2 Saturation 97 97 100 10/12/17 08:41 Temperature 36.7 C Heart Rate [ 75 Radial] Respiratory 17 Rate Blood Pressure 149/89 H [Right Brachial artery] O2 Saturation 98 Oxygen O2 Source Room air I&O (Last 24 Hrs): Intake and Output Totals x24h 10/10/17 10/11/17 10/12/17 23:59 23:59 23:59 Intake Total 1271.667 Balance 1271.667 General: Alert, Oriented x3, Moderate distress (Unable to sit still, anxious) HEENT: Atraumatic, PERRLA, EOMI, Other (Dry mucus membranes) Neck: Supple, No JVD, No thyromegaly, +2 carotid pulse wo bruit, No LAD Lymphatic: no adenopathy Neuro: Alert, Non Focal, CN 2-12 Grossly Intact, Oriented Times 3 Cardiovascular: Regular rate, Normal S1, Normal S2, No murmurs Respiratory: Chest non-tender, No respiratory distress, Breath sounds nml Abdomen: Normal bowel sounds, Soft, No tenderness, No hepatospenomegaly Extremities: No clubbing, No cyanosis, No edema, Normal pulses Skin: No rashes, No breakdown ABX Reporting Has patient been on IV antibiotics over the past 48 hours?: No Current Medications - Current Medications Current Medications: Active Medications Generic Name Dose Route Start Last Admin Trade Name Freq PRN Reason Stop Dose Admin Dexamethasone 4 mg 10/12/17 01:00 10/12/17 09:30 Decadron PO 4 mg BIDWM MONSTER Administration Ferrous Sulfate 325 mg 10/13/17 08:00 Feosol PO DAILYWM MONSTER Folic Acid 1 mg 10/13/17 09:00 PO DAILY [facility] Gabapentin 300 mg 10/12/17 06:00 10/12/17 05:51 Neurontin PO 300 mg TID MONSTER Administration Hydromorphone HCl 2 mg 10/12/17 00:15 10/12/17 04:04 Dilaudid Inj Carp IVP 2 mg Q1HR PRN Administration Pain 8 to 10 Potassium Chloride/Dextrose/Sod Cl 1,000 mls @ 100 mls/hr 10/12/17 01:00 11:08 D5.45ns W/20 Meq Kcl IV 100 mls/hr .Q10H [facility]STER Administration Metoprolol Succinate 50 mg 10/12/17 01:00 10/12/17 09:30 Toprol Xl PO 50 mg DAILY [facility]STER Administration Morphine Sulfate 30 mg 10/12/17 09:00 10/12/17 09:30 PO 30 mg BID MONSTER Administration Oxycodone HCl 5 mg 10/12/17 00:15 10/12/17 01:21 Roxicodone PO 5 mg Q4HR PRN Administration Pain 5 to 7 Enzalutamide [Xtandi 160 each 10/12/17 09:00 10/12/17 09:31 ] 160 Mg PO Not Given DAILY [facility] Polyethylene Glycol 17 gm 10/12/17 09:00 10/12/17 09:31 Miralax PO Not Given DAILY [facility] Prochlorperazine Edisylate 10 mg 10/12/17 00:15 Compazine Inj IVP Q6HR PRN Nausea / Vomiting Saccharomyces Boulardii 500 mg 10/12/17 01:00 10/12/17 09:30 Florastor PO 500 mg BIDWM MONSTER Administration Simethicone 80 mg 10/12/17 01:00 10/12/17 09:30 Mylicon PO 80 mg 0900,1300,1800,2100 MONSTER Administration Sodium Chloride 10 ml 10/12/17 00:15 Normal Saline Flush 0.9% IVP PRN PRN NEEDED PER PROVIDER ORDERS Sodium Chloride 10 ml 10/12/17 01:00 10/12/17 09:31 Normal Saline Flush 0.9% IVP Not Given 0100,0900,1700 [facility] Temazepam 15 mg 10/12/17 00:21 Restoril PO QPM PRN Insomnia Vancomycin HCl 125 mg 10/12/17 09:00 10/12/17 09:30 Vancocin PO 125 mg QID MONSTER Administration Enzalutamide [Xtandi] 160 mg PO DAILY 03/30/17 Gabapentin 900 mg PO TID 07/27/17 Dexamethasone 4 mg PO 0700 09/28/17 Methadone 2.5 mg PO TID 09/28/17 Sennosides [Senna] 17.2 mg PO TID 09/28/17 Leuprolide [Lupron] 22.5 mg IM Q84D 10/09/17
[2017-10-12] MEDS ORDERED: LORazepam 0.5 MG TABLET PO PRN (12:16)
[2017-10-12] MEDS ORDERED: GABAPENTIN 300 MG CAPSULE PO SCH (14:00)
[2017-10-12] MEDS ORDERED: fent/BUPIV 2 MCG/0.125% 250 ML EP ONE (17:37)
[2017-10-12] MEDS ORDERED: ROPIVACAINE 0.2% PF 20 ML AMPULE ONE (17:37)
[2017-10-12] MEDS ORDERED: CALCIUM CARBONATE CHEW 500 MG TABLET PO ONE (19:15)
[2017-10-12] MEDS ORDERED: ZINC OXIDE 20% OINT 28.35 GM TUBE TOP PRN (20:17)
[2017-10-13] MEDS ORDERED: LEVALBUTEROL 1.25 MG/3 ML NEB INH ONE (00:21)
[2017-10-13] MEDS: SODIUM CHLORIDE FLUSH 0.9% 10 ML SYRINGE IVP SCH ×4 (00:24→23:46)
[2017-10-13] MEDS: HYDROmorphone 1 MG/ML CARPUJECT IVP PRN ×3 (00:42→17:22)
[2017-10-13] MEDS: D5.45NS W/20 MEQ KCL 1,000 ML IV SCH ×3 (00:42→20:48)
[2017-10-13] MEDS: GABAPENTIN 300 MG CAPSULE PO SCH ×3 (05:27→20:45)
[2017-10-13] MEDS ORDERED: DEXAMETHASONE 4 MG TABLET PO SCH (07:00)
[2017-10-13 08:42] LABS: BASOPHILS % (AUTO) 0.3 %; EOSINOPHILS % (AUTO) 0.5 %; HGB - HEMOGLOBIN 9.1 g/dL (14.0-18.0); LYMPHOCYTES % (AUTO) 11.6 %; MEAN CORPUSCULAR HEMOGLOBIN 29.1 pg (27.0-31.0); MEAN CORPUSCULAR HGB CONC 33.2 g/dL (32.0-36.0); MEAN CORPUSCULAR VOLUME 87.5 fL (80.0-94.0); MEAN PLATELET VOLUME 7.5 fL (7.4-11.4); MONOCYTES % (AUTO) 5.2 %; NEUTROPHILS % (AUTO) 82.4 %; PLT - PLATELET COUNT 464 10^3/uL (130-450); RED BLOOD COUNT 3.13 10^6/uL (4.70-6.10); RED CELL DISTRIBUTION WIDTH 15.5 % (12.0-15.0); WHITE BLOOD COUNT 14.7 x10^3/uL (4.8-10.8)
[2017-10-13] MEDS: SACCHAROMYCES BOULARDII 250 MG CAPSULE PO SCH ×2 (09:13→16:27)
[2017-10-13] MEDS: DEXAMETHASONE 4 MG TABLET PO SCH ×2 (09:14→16:27)
[2017-10-13] MEDS: FOLIC ACID 1 MG TABLET PO SCH (09:14)
[2017-10-13] MEDS: FERROUS SULFATE 325 MG TABLET PO SCH (09:14)
[2017-10-13] MEDS: METOPROLOL SUCCINATE 50 MG TABLET PO SCH (09:14)
[2017-10-13] MEDS: SIMETHICONE CHEW 80 MG TABLET PO SCH ×4 (09:15→20:45)
[2017-10-13] MEDS: MORPHINE ER 15 MG TABLET PO SCH ×2 (09:15→20:45)
[2017-10-13] MEDS: VANCOMYCIN 125 MG CAPSULE PO SCH ×4 (09:15→20:48)
[2017-10-13 09:16] LABS: ALBUMIN 2.1 g/dL (3.2-5.5); ALBUMIN/GLOBULIN RATIO 0.5 (1.0-2.2); ALKALINE PHOSPHATASE 133 IU/L (42-121); ALT ALANINE AMINOTRANSFERASE 15 IU/L (10-60); AST ASPARTATE AMINOTRANSFERASE 27 IU/L (10-42); BILIRUBIN,TOTAL 0.6 mg/dL (0.2-1.0); BUN - BLOOD UREA NITROGEN 18 mg/dL (6-20); CALCIUM 9.9 mg/dL (8.5-10.3); CARBON DIOXIDE - CO2 20 mmol/L (21-32); CHLORIDE 103 mmol/L (101-111); CREATININE 0.9 mg/dL (0.6-1.2); GFR - MDRD 84 (>89); GLUCOSE 118 mg/dL (70-100); SODIUM 134 mmol/L (135-145); TOTAL PROTEIN 6.4 g/dL (6.7-8.2)
[2017-10-13] MEDS: POLYETHYLENE GLYCOL 3350 17 GM PACKET PO SCH (09:16)
[2017-10-13] MEDS: Enzalutamide [Xtandi] 160 MG PO SCH (09:16)
[2017-10-13 09:21] LABS: ABNORMAL LYMPHS % (MANUAL) 0 %
[2017-10-13 09:49] LABS: BAND NEUTROPHILS % (MANUAL) 1 %; LYMPHOCYTES # (MANUAL) 4.1 10^3/uL (1.5-3.5); LYMPHOCYTES % (MANUAL) 28 %; METAMYELOCYTES % (MANUAL) 3 %; MONOCYTES # (MANUAL) 0.6 10^3/uL (0.0-1.0); MYELOCYTES % (MANUAL) 2 %; NEUTROPHILS # (MANUAL) 9.3 10^3/uL (1.5-6.6); NEUTROPHILS % (MANUAL) 62 %
[2017-10-13 09:51] LABS: PLATELET ESTIMATE, MANUAL INCREASED (>450,000) (NORMAL)
[2017-10-13 09:56] LABS: DIFFERENTIAL COMMENT MANUAL DIFFERENTIAL
--- NOTE | 2017-10-13 17:46 | PROVIDER PROGRESS NOTE ---
Assessment/Plan - Problem List (1) C. difficile diarrhea Assessment/Plan: Stool culture is neg for bacteria (Shigell, salmonell, etc). BMs continue to decrease Patient left AMA on 10/11/17 but returned 2 hours later Continue po Vanco, for a 10 day course today is day 4 of 10 Continue Florastor. WBC worsening today will need to monitor closely Advance diet with nutritional supplementation Roll Carrier to see to address calories and protein. Patient is very weak and seen by PT who recommend SNF (2) Paroxysmal A-fib Assessment/Plan: Afib started on 10/11/17 at 0200 over night this last night and he is in and out of it. When his HR is at it's highest, he is in Afib. He had an Echo done and showed normal resting LVEF and no pulminary HTN. Trop negative. TSh pending, T3 and T4 were normal Continue Toprol XL 50 mg daily, to control HRs when he is in Afib, and hopefully B-claudette will prevent Afib. HR currently controlled in the 70s-80s His CHADS score = 0 (no CHF, HTN, Age>75, DM or Stroke hx), therefore no anticoagulation needed, but started a baby ASA daily. (3) Dehydration Assessment/Plan: BUN/creat ratio have improved and pt appears less dry. Continue iv hydration and monitor daily BMP and Mg as patient has very poor PO intake (4) Hyponatremia Assessment/Plan: Improving with iv saline and on Dexamethasone since before admission. Continue saline iv. Monitor daily Na. (5) Acute kidney injury superimposed on chronic kidney disease Assessment/Plan: Resolved with IVFs Continue hydration and monitor daily labs. (6) Anemia Assessment/Plan: Labs show low iron levels and low folate. Will continue oral ferrous gluconate daily and oral folic acid daily. (7) Metastatic malignant neuroendocrine tumor to liver Assessment/Plan: Patient being followed by Chasidy Tello and [facility] clinic Patient wants to continue with Chemo This can be done as an outpatient once he is improved from current illness Patient to get Port placed on 10/15/17 as requested by oncology. 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 He was on Gabapentin 900 mg tid at home and Oxycodone was being decreased and Methadone was at 2.5 mg bid and just increased to 5 mg bid. Here he got a 5 mg dose of methadone, which caused over-sedation. Now the patient is declining to take any Methadone. Patient states his pain is controlled Currently he is on gabapentin 300 mg 3 times daily, Dilaudid 2 mg IV every hour as needed, morphine extended release 30 mg p.o. twice daily and dexamethasone 4 mg twice daily Pain better controlled (9) Spinal stenosis Assessment/Plan: Continue with pain management. Elective lumbar surgery is no longer planned. (10) Abnormal EKG Assessment/Plan: Echo showed normal resting LVEF. He would have needed a pre-op pharmaceutical stress test, but no lumbar surgery is being considered any longer. (11) Severe protein calorie malnutrition Assessment/Plan: Patient has nutritional intake of less than 50% of recommended intake for greater than 2 weeks, he has had a weight loss of 13% in 6 months and has significantly reduced functional capacity with increasing weakness. Plan: Ensure with meals 1 mg folic acid daily Iron supplements - Current Meds Current Meds: Current Medications Generic Name Dose Route Start Last Admin Trade Name Tanvi PRN Reason Stop Dose Admin Dexamethasone 4 mg 10/12/17 01:00 10/13/17 16:27 Decadron PO 4 mg BIDWM MONSTER Administration Ferrous Sulfate 325 mg 10/13/17 08:00 10/13/17 09:14 Feosol PO 325 mg DAILYWM MONSTER Administration Folic Acid 1 mg 10/13/17 09:00 10/13/17 09:14 PO 1 mg DAILY [facility]STER Administration Gabapentin 300 mg 10/12/17 06:00 10/13/17 13:47 Neurontin PO 300 mg TID MONSTER Administration Hydromorphone HCl 2 mg 10/12/17 00:15 10/13/17 17:22 Dilaudid Inj Carp IVP 2 mg Q1HR PRN Administration Pain 8 to 10 Potassium Chloride/Dextrose/Sod Cl 1,000 mls @ 100 mls/hr 10/12/17 01:00 13:20 D5.45ns W/20 Meq Kcl IV 100 mls/hr .Q10H MONSTER Administration Metoprolol Succinate 50 mg 10/12/17 01:00 10/13/17 09:14 Toprol Xl PO 50 mg DAILY MONSTER Administration Morphine Sulfate 30 mg 10/12/17 09:00 10/13/17 09:15 PO 30 mg BID MONSTER Administration Oxycodone HCl 5 mg 10/12/17 00:15 10/12/17 01:21 Roxicodone PO 5 mg Q4HR PRN Administration Pain 5 to 7 Enzalutamide [Xtandi 160 each 10/12/17 09:00 10/13/17 09:16 ] 160 Mg PO Not Given DAILY [facility] Polyethylene Glycol 17 gm 10/12/17 09:00 10/13/17 09:16 Miralax PO Not Given DAILY [facility] Prochlorperazine Edisylate 10 mg 10/12/17 00:15 10/13/17 17:07 Compazine Inj IVP 10 mg Q6HR PRN Administration Nausea / Vomiting Saccharomyces Boulardii 500 mg 10/12/17 01:00 10/13/17 16:27 Florastor PO 500 mg BIDWM MONSTER Administration Simethicone 80 mg 10/12/17 01:00 10/13/17 13:47 Mylicon PO 80 mg 0900,1300,1800,2100 MONSTER Administration Sodium Chloride 10 ml 10/12/17 01:00 10/13/17 16:27 Normal Saline Flush 0.9% IVP Not Given 0100,0900,1700 [facility] Vancomycin HCl 125 mg 10/12/17 09:00 10/13/17 16:27 Vancocin PO 125 mg QID MONSTER Administration - Lab Result Fish Bone Diagrams: 10/13/17 08:30 10/13/17 08:30 - Diagnostic Imaging Results Diagnostic Imaging Results: Final report reviewed - Additional Planning Condition/Complexity: Guarded My Orders: My Active Orders 10/12/17 20:17 Zinc Oxide 20% Oint [Zinc Oxide] 1 applic TOP PRN PRN 10/13/17 General Surgery Consult [CONS] Routine 10/13/17 08:00 Ferrous Sulfate [Feosol] 325 mg PO DAILYWM 10/13/17 09:00 Folic Acid 1 mg PO DAILY 10/13/17 11:40 Nutrition Consult [CONS] Routine Consult/Specialty: PT Plan Discussed with:: Patient, Spouse Time Spent: 31-60 minutes Subjective - Subjective Patient Reports: Diarrhea (Improving), Fatigue, Pain (Back worse today but controlled once he gets meds), Other (Patient is drowsy and has generalized weakness) Nursing Reports: No Complaints Objective Vital Signs: Vital Signs - 24 hr 10/12/17 10/13/17 10/13/17 20:32 00:40 02:26 Temperature 36.5 C 36.2 C L Heart Rate [ 96 70 Brachial] Respiratory 16 16 Rate Blood Pressure 130/79 142/89 H [Right Brachial artery] O2 Saturation 95 97 10/13/17 10/13/17 10/13/17 05:00 08:15 15:16 Temperature 36.5 C 36.6 C 36.4 C L Heart Rate [ 106 H 100 56 L Brachial] Respiratory 18 18 16 Rate Blood Pressure 147/86 H 129/80 133/77 H [Right Brachial artery] O2 Saturation 98 99 96 10/13/17 17:10 Temperature Heart Rate [ 74 Brachial] Respiratory Rate Blood Pressure 185/67 H [Right Brachial artery] O2 Saturation Oxygen O2 Source Room air I&O (Last 24 Hrs): Intake and Output Totals x24h 10/11/17 10/12/17 10/13/17 23:59 23:59 23:59 Intake Total 2498.334 2163.333 Output Total 250 400 Balance 2248.334 1763.333 General: Alert, Oriented x3, Cooperative, Mild distress (Pain in back), Other ( Drowsy) HEENT: Atraumatic, PERRLA Neck: Supple, No JVD, No thyromegaly, +2 carotid pulse wo bruit, No LAD Lymphatic: no adenopathy Neuro: Alert, Non Focal, CN 2-12 Grossly Intact, Oriented Times 3 Cardiovascular: Regular rate, Normal S1, Normal S2, No murmurs Respiratory: Chest non-tender, No respiratory distress, Breath sounds nml Abdomen: Normal bowel sounds, Soft, No tenderness, No hepatospenomegaly Extremities: No clubbing, No cyanosis, No edema, Normal pulses Skin: No rashes, No breakdown - Results Results: Laboratory Results WBC 14.7 x10^3/uL (4.8-10.8) H 10/13/17 08:30 RBC 3.13 10^6/uL (4.70-6.10) L 10/13/17 08:30 Hgb 9.1 g/dL (14.0-18.0) L 10/13/17 08:30 Hct 27.4 % (42.0-52.0) L 10/13/17 08:30 MCV 87.5 fL (80.0-94.0) 10/13/17 08:30 MCH 29.1 pg (27.0-31.0) 10/13/17 08:30 MCHC 33.2 g/dL (32.0-36.0) 10/13/17 08:30 RDW 15.5 % (12.0-15.0) H 10/13/17 08:30 Plt Count 464 10^3/uL (130-450) H 10/13/17 08:30 MPV 7.5 fL (7.4-11.4) 10/13/17 08:30 Neut # (Auto) Not Reportable 10/13/17 08:30 Lymph # (Auto) Not Reportable 10/13/17 08:30 Meriwether # (Auto) Not Reportable 10/13/17 08:30 Eos # (Auto) Not Reportable 10/13/17 08:30 Baso # (Auto) Not Reportable 10/13/17 08:30 Absolute Nucleated RBC Not Reportable 10/13/17 08:30 Total Counted 100 10/13/17 08:30 Band Neuts % (Manual) 1 % (0-10) 10/13/17 08:30 Abnorm Lymph % (Manual) 0 % 10/13/17 08:30 Metamyelocytes % 3 % (-0) H 10/13/17 08:30 Myelocytes % 2 % (-0) H 10/13/17 08:30 Nucleated RBC % Not Reportable 10/13/17 08:30 Neutrophils # (Manual) 9.3 10^3/uL (1.5-6.6) H 10/13/17 08:30 Lymphocytes # (Manual) 4.1 10^3/uL (1.5-3.5) H 10/13/17 08:30 Monocytes # (Manual) 0.6 10^3/uL (0.0-1.0) 10/13/17 08:30 Eosinophils # (Manual) 0.0 10^3/uL (0-0.7) 10/13/17 08:30 Basophils # (Manual) 0.0 10^3/uL (0-0.1) 10/13/17 08:30 Differential Comment MANUAL DIFFERENTIAL 10/13/17 08:30 Platelet Estimate INCREASED (>450,000) (NORMAL) 10/13/17 08:30 Platelet Morphology 1+ GIANT PLATELETS (NORMAL) PLATELET CLUMPING (NORMAL) 10/13/17 08:30 Platelet Morphology 1+ GIANT PLATELETS (NORMAL) PLATELET CLUMPING (NORMAL) 10/13/17 08:30 RBC Morph Micro Appear 1+ ANISOCYTOSIS (NORMAL) 1+ POLYCHROMASIA (NORMAL) 10/13/17 08:30 RBC Morph Micro Appear 1+ ANISOCYTOSIS (NORMAL) 1+ POLYCHROMASIA (NORMAL) 10/13/17 08:30 Sodium 134 mmol/L (135-145) L 10/13/17 08:30 Potassium 4.7 mmol/L (3.5-5.0) 10/13/17 08:30 Chloride 103 mmol/L (101-111) 10/13/17 08:30 Carbon Dioxide 20 mmol/L (21-32) L 10/13/17 08:30 Anion Gap 11.0 (6-13) 10/13/17 08:30 BUN 18 mg/dL (6-20) 10/13/17 08:30 Creatinine 0.9 mg/dL (0.6-1.2) 10/13/17 08:30 Estimated GFR (MDRD) 84 (>89) L 10/13/17 08:30 Glucose 118 mg/dL (70-100) H 10/13/17 08:30 Calcium 9.9 mg/dL (8.5-10.3) 10/13/17 08:30 Ionized Calcium NO 10/13/17 08:30 Total Bilirubin 0.6 mg/dL (0.2-1.0) 10/13/17 08:30 AST 27 IU/L (10-42) 10/13/17 08:30 ALT 15 IU/L (10-60) 10/13/17 08:30 Alkaline Phosphatase 133 IU/L (42-121) H 10/13/17 08:30 Total Protein 6.4 g/dL (6.7-8.2) L 10/13/17 08:30 Albumin 2.1 g/dL (3.2-5.5) L 10/13/17 08:30 Globulin 4.3 g/dL (2.1-4.2) H 10/13/17 08:30 Albumin/Globulin Ratio 0.5 (1.0-2.2) L 10/13/17 08:30 TSH 1.44 uIU/mL (0.34-5.60) 10/13/17 05:30 ABX Reporting Has patient been on IV antibiotics over the past 48 hours?: No Current Medications - Current Medications Current Medications: Active Medications Generic Name Dose Route Start Last Admin Trade Name Freq PRN Reason Stop Dose Admin Dexamethasone 4 mg 10/12/17 01:00 10/13/17 16:27 Decadron PO 4 mg BIDWM MONSTER Administration Ferrous Sulfate 325 mg 10/13/17 08:00 10/13/17 09:14 Feosol PO 325 mg DAILYWM MONSTER Administration Folic Acid 1 mg 10/13/17 09:00 10/13/17 09:14 PO 1 mg DAILY MONSTER Administration Gabapentin 300 mg 10/12/17 06:00 10/13/17 13:47 Neurontin PO 300 mg TID MONSTER Administration Hydromorphone HCl 2 mg 10/12/17 00:15 10/13/17 17:22 Dilaudid Inj Carp IVP 2 mg Q1HR PRN Administration Pain 8 to 10 Potassium Chloride/Dextrose/Sod Cl 1,000 mls @ 100 mls/hr 10/12/17 01:00 13:20 D5.45ns W/20 Meq Kcl IV 100 mls/hr .Q10H MONSTER Administration Lorazepam 1 mg 10/12/17 12:16 Ativan PO Q6H PRN Anxiety Metoprolol Succinate 50 mg 10/12/17 01:00 10/13/17 09:14 Toprol Xl PO 50 mg DAILY [facility]STER Administration Morphine Sulfate 30 mg 10/12/17 09:00 10/13/17 09:15 PO 30 mg BID MONSTER Administration Multi-Ingredient Ointment 1 applic 10/12/17 20:17 Zinc Oxide TOP PRN PRN Skin Care Oxycodone HCl 5 mg 10/12/17 00:15 10/12/17 01:21 Roxicodone PO 5 mg Q4HR PRN Administration Pain 5 to 7 Enzalutamide [Xtandi 160 each 10/12/17 09:00 10/13/17 09:16 ] 160 Mg PO Not Given DAILY [facility] Polyethylene Glycol 17 gm 10/12/17 09:00 10/13/17 09:16 Miralax PO Not Given DAILY [facility] Prochlorperazine Edisylate 10 mg 10/12/17 00:15 10/13/17 17:07 Compazine Inj IVP 10 mg Q6HR PRN Administration Nausea / Vomiting Saccharomyces Boulardii 500 mg 10/12/17 01:00 10/13/17 16:27 Florastor PO 500 mg BIDWM MONSTER Administration Simethicone 80 mg 10/12/17 01:00 10/13/17 13:47 Mylicon PO 80 mg 0900,1300,1800,2100 [facility]STER Administration Sodium Chloride 10 ml 10/12/17 00:15 Normal Saline Flush 0.9% IVP PRN PRN NEEDED PER PROVIDER ORDERS Sodium Chloride 10 ml 10/12/17 01:00 10/13/17 16:27 Normal Saline Flush 0.9% IVP Not Given 0100,0900,1700 [facility] Temazepam 15 mg 10/12/17 00:21 Restoril PO QPM PRN Insomnia Vancomycin HCl 125 mg 10/12/17 09:00 10/13/17 16:27 Vancocin PO 125 mg QID MONSTER Administration Enzalutamide [Xtandi] 160 mg PO DAILY 03/30/17 Gabapentin 900 mg PO TID 07/27/17 Dexamethasone 4 mg PO 0700 09/28/17 Methadone 2.5 mg PO TID 09/28/17 Sennosides [Senna] 17.2 mg PO TID 09/28/17 Leuprolide [Lupron] 22.5 mg IM Q84D 10/09/17
--- NOTE | 2017-10-13 18:06 | CONSULTATION NOTE ---
Referring Provider Name of Referring Provider:: Dr. Bell Consult Date: 10/13/17 Chief Complaint - Chief Complaint Chief Complaint: inadequate venous access History of Present Illness - Admitted From Admitted From:: ER - History Obtained From Records Reviewed: yes History obtained from: pt, , and records Exam Limitations: pt somnolent from recent pain medication administration - History of Present Illness HPI Comment/Other: 71 yo male with metastatic neuroendocrine tumor with advancing disease and in need of venous access to facilitate chemotherapy. (He also suffers from metastatic prostate cancer). He has been treated at the the Loc[facility] within [facility]. He reports no prior port placements or central lines, no hx of trauma to his chest or clavicles, no hx of bleeding diathesis or thrombosis. Chemotherapy is planned for next week and port placement is requested for this week if possible. He is currently admitted for treatment of volume depletion and C. difficile colitis , which is clinically resolving at present. A CXR from 10/09/17 shows NAD. History - Past Medical History Respiratory: reports: None Endocrine/Autoimmune: reports: None GI: reports: C.difficile (this admission), Chronic constipation, Other : reports: Other Musculoskeletal: reports: Chronic back pain MRSA Hx?: No Other Past Medical History: metastatic prostate ca, Metastatic small cell neuroendocrine tumor - Past Surgical History General: reports: Colonoscopy Ortho: reports: Amputation /S[employer]: reports: Other - Family & Social History Family History: Mother: , Father: Family History Comment/Other: Patient's adoptive parents are . The patient was adopted and has no knowledge of his family history. Living arrangement: At home Living Situation: With spouse/s.o. - Substance History Use: Uses substance without health or social issues: Cannabis Abuse: Recurrent use of substance despite neg consequences: NONE Dependence: Experiences withdrawal or developed tolerances: NONE - POLST Patient has POLST: No POLST Status: Full Code Meds/Allgy - Home Medications Home Medications: Ambulatory Orders Medication Instructions Recorded Confirmed Enzalutamide [Xtandi] 160 mg PO DAILY 03/30/17 10/12/17 Gabapentin 900 mg PO TID 07/27/17 10/12/17 Dexamethasone 4 mg PO 0700 09/28/17 10/12/17 Methadone 2.5 mg PO TID 09/28/17 10/12/17 Sennosides [Senna] 17.2 mg PO TID 09/28/17 10/12/17 Leuprolide [Lupron] 22.5 mg IM Q84D 10/09/17 10/12/17 - Allergies Allergies/Adverse Reactions: Allergies Allergy/AdvReac Type Severity Reaction Status Date / Time No Known Drug Allergies Allergy Verified 05/26/16 11:30 Review of Systems - Constitutional Constitutional: reports: Fatigue, Malaise, Weakness, Poor appetite - Gastrointestinal Gastrointestinal: reports: Diarrhea, Change in bowel habits - Neurological Neurological: reports: General weakness - Hematologic/Lymphatic Hematologic/Lymphatic: denies: Blood clots, Bleeding tendencies Exam - Vital Signs Reviewed Vital Signs: Yes Vital Signs: Vital Signs x48h Temp Pulse Resp BP Pulse Ox 10/13/17 17:56 16 10/13/17 17:10 74 185/67 H 10/13/17 15:16 36.4 C L 56 L 16 133/77 H 96 - Physical Exam General Appearance: positive: Lethargic Eyes Bilateral: positive: No scleral icterus ENT: positive: Dry mucous membranes Neck: positive: No JVD, Trachea midline. negative: Lymphadenopathy (R), Lymphadenopathy (L) Respiratory: positive: Chest non-tender, No respiratory distress, Breath sounds nml. negative: Wheezes, Rales, Rhonchi Cardiovascular: positive: Regular rate & rhythm, No murmur, No gallop Abdomen: positive: Non-tender, Nml bowel sounds Skin: positive: Warm, Dry, Pallor. negative: Cyanosis Extremities: positive: No pedal edema. negative: Calf tenderness Conclusion/Plan - Diagnosis Diagnosis: Unfortunate 71 yo with 2 widely metastatic neoplasms, in need of venous access to facilitate chemotherapy. Concurrent C. difficile infection, resolving with therapy. - Plan Plan: Agree that port placement is indicated. Arrangements will be made for it to be placed later this week by Dr. Newell or next week by me. PAR conf with pt and consent obtained. - Lab Results Lab results reviewed: Yes Fish Bones: 10/13/17 08:30 10/13/17 08:30 - Diagnostic Imaging Results Diagnostic Imaging Results: positive: Final report reviewed Diagnostic Imaging Results Comments: CXR: NAD ECHO: nl LVEF - EKG Results EKG Interpreted Independently: No EKG Findings: multiple PVCs, old GA
[2017-10-14] MEDS: HYDROmorphone 1 MG/ML CARPUJECT IVP PRN ×2 (00:57→06:05)
[2017-10-14] MEDS: GABAPENTIN 300 MG CAPSULE PO SCH ×3 (06:00→20:16)
[2017-10-14] MEDS: SODIUM CHLORIDE FLUSH 0.9% 10 ML SYRINGE IVP PRN (06:05)
[2017-10-14] MEDS: D5.45NS W/20 MEQ KCL 1,000 ML IV SCH (06:07)
[2017-10-14] MEDS: DEXAMETHASONE 4 MG TABLET PO SCH (10:56)
[2017-10-14] MEDS: SACCHAROMYCES BOULARDII 250 MG CAPSULE PO SCH ×2 (10:57→16:45)
[2017-10-14] MEDS: FERROUS SULFATE 325 MG TABLET PO SCH (10:57)
[2017-10-14] MEDS: FOLIC ACID 1 MG TABLET PO SCH (10:58)
[2017-10-14] MEDS: METOPROLOL SUCCINATE 50 MG TABLET PO SCH (10:58)
[2017-10-14] MEDS: MORPHINE ER 15 MG TABLET PO SCH ×2 (10:59→20:16)
[2017-10-14] MEDS: POLYETHYLENE GLYCOL 3350 17 GM PACKET PO SCH (11:00)
[2017-10-14] MEDS: Enzalutamide [Xtandi] 160 MG PO SCH (11:00)
[2017-10-14] MEDS: SIMETHICONE CHEW 80 MG TABLET PO SCH ×4 (11:01→20:16)
[2017-10-14] MEDS: VANCOMYCIN 125 MG CAPSULE PO SCH ×4 (11:01→20:16)
[2017-10-14] MEDS: SODIUM CHLORIDE FLUSH 0.9% 10 ML SYRINGE IVP SCH ×2 (11:01→16:44)
[2017-10-14] MEDS ORDERED: ZINC OXIDE 20% OINT 28.35 GM TUBE TOP PRN (11:22)
[2017-10-14] MEDS ORDERED: MIN OIL/DIMETHICON/COCONUT OIL 92 GM TUBE TOP PRN (11:22)
[2017-10-14] MEDS: oxyCODONE 5 MG TABLET PO PRN ×2 (12:24→16:44)
--- NOTE | 2017-10-14 13:13 | PROVIDER PROGRESS NOTE ---
Assessment/Plan - Problem List (1) C. difficile diarrhea Assessment/Plan: Stool culture is neg for bacteria (Shigell, salmonell, etc). BMs continue to decrease Patient left AMA on 10/11/17 but returned 2 hours later Continue po Vanco, for a 10 day course today is day 5 of 10 Continue Florastor. WBC worsening today up to 20K could be secondary to steroids as patient is not spiking fevers but will need to re-evaluate for infection if it continues to increase or if patient spikes fever Patient is very weak and seen by PT who recommend SNF Patient is not ready for discharge as WBC is going up and patient still requiring IV pain meds (2) Paroxysmal A-fib Assessment/Plan: Afib started on 10/11/17 at 0200 over night this last night and he is in and out of it. When his HR is at it's highest, he is in Afib. He had an Echo done and showed normal resting LVEF and no pulminary HTN. Trop negative. TSh pending, T3 and T4 were normal HR elevated today therefore increased Toprol XL to 75 mg His CHADS score = 0 (no CHF, HTN, Age>75, DM or Stroke hx), therefore no anticoagulation needed, but started a baby ASA daily. (3) Dehydration Assessment/Plan: BUN/creat ratio have improved and pt appears less dry. Continue iv hydration and monitor daily BMP and Mg as patient has very poor PO intake (4) Hyponatremia Assessment/Plan: Na 132 COntinue IVF MOnitor (5) Acute kidney injury superimposed on chronic kidney disease Assessment/Plan: Resolved with IVFs Continue hydration and monitor daily labs. (6) Anemia Assessment/Plan: Labs show low iron levels and low folate. Will continue oral ferrous gluconate daily and oral folic acid daily. (7) Metastatic malignant neuroendocrine tumor to liver Assessment/Plan: Patient being followed by Chasidy Tello and [facility] Patient wants to continue with Chemo This can be done as an outpatient once he is improved from current illness Patient to get Port placed on 10/15/17 as requested by oncology. 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 He was on Gabapentin 900 mg tid at home and Oxycodone was being decreased and Methadone was at 2.5 mg bid and just increased to 5 mg bid. Here he got a 5 mg dose of methadone, which caused over-sedation. Now the patient is declining to take any Methadone. Patient states his pain is controlled Currently he is on gabapentin 300 mg 3 times daily, Dilaudid 2 mg IV every hour as needed, morphine extended release 30 mg p.o. twice daily and dexamethasone 4 mg twice daily Patient requiring IV pain meds frequently will stop IV pain meds and titrate pO pain meds as patient cannot go to SNF with IV pain meds (9) Spinal stenosis Assessment/Plan: Continue with pain management. Elective lumbar surgery is no longer planned. (10) Abnormal EKG Assessment/Plan: Echo showed normal resting LVEF. He would have needed a pre-op pharmaceutical stress test, but no lumbar surgery is being considered any longer. (11) Severe protein calorie malnutrition Assessment/Plan: Patient has nutritional intake of less than 50% of recommended intake for greater than 2 weeks, he has had a weight loss of 13% in 6 months and has significantly reduced functional capacity with increasing weakness. Ensure with meals 1 mg folic acid daily Iron supplements - Current Meds Current Meds: Current Medications Generic Name Dose Route Start Last Admin Trade Name Freq PRN Reason Stop Dose Admin Dexamethasone 4 mg 10/14/17 08:00 10/14/17 10:56 Decadron PO 4 mg DAILYWM MONSTER Administration Ferrous Sulfate 325 mg 10/13/17 08:00 10/14/17 10:57 Feosol PO 325 mg DAILYWM MONSTER Administration Folic Acid 1 mg 10/13/17 09:00 10/14/17 10:58 PO 1 mg DAILY MONSTER Administration Gabapentin 300 mg 10/12/17 06:00 10/14/17 06:00 Neurontin PO 300 mg TID MONSTER Administration Metoprolol Succinate 75 mg 10/14/17 09:00 10/14/17 10:58 Toprol Xl PO 75 mg DAILY MONSTER Administration Morphine Sulfate 30 mg 10/12/17 09:00 10/14/17 10:59 PO 30 mg BID MONSTER Administration Oxycodone HCl 5 mg 10/12/17 00:15 10/14/17 12:24 Roxicodone PO 5 mg Q4HR PRN Administration Pain 5 to 7 Enzalutamide [Xtandi 160 each 10/12/17 09:00 10/14/17 11:00 ] 160 Mg PO Not Given DAILY MONSTER Polyethylene Glycol 17 gm 10/12/17 09:00 10/14/17 11:00 Miralax PO Not Given DAILY MONSTER Prochlorperazine Edisylate 10 mg 10/12/17 00:15 10/13/17 17:07 Compazine Inj IVP 10 mg Q6HR PRN Administration Nausea / Vomiting Saccharomyces Boulardii 500 mg 10/12/17 01:00 10/14/17 10:57 Florastor PO 500 mg BIDWM MONSTER Administration Simethicone 80 mg 10/12/17 01:00 10/14/17 11:01 Mylicon PO 80 mg 0900,1300,1800,2100 MONSTER Administration Sodium Chloride 10 ml 10/12/17 00:15 10/14/17 06:05 Normal Saline Flush 0.9% IVP 10 ml PRN PRN Administration NEEDED PER PROVIDER ORDERS Sodium Chloride 10 ml 10/12/17 01:00 10/14/17 11:01 Normal Saline Flush 0.9% IVP 10 ml 0100,0900,1700 MONSTER Administration Vancomycin HCl 125 mg 10/12/17 09:00 10/14/17 11:01 Vancocin PO 125 mg QID MONSTER Administration - Lab Result Lab results reviewed: Yes Fish Bone Diagrams: 10/13/17 08:30 10/13/17 08:30 - Diagnostic Imaging Results Diagnostic Imaging Results: Final report reviewed - Additional Planning Condition/Complexity: Guarded My Orders: My Active Orders 10/14/17 08:00 Dexamethasone [Decadron] 4 mg PO DAILYWM 10/14/17 09:00 Metoprolol Succinate [Toprol Xl] 75 mg PO DAILY 10/14/17 11:22 Min Oil/Dimeth/Coconut Oil Crm [Cavilon] 1 applic TOP PRN PRN Zinc Oxide 20% Oint [Zinc Oxide] 1 applic TOP PRN PRN Consult/Specialty: PT Plan Discussed with:: Patient, Spouse Time Spent: 31-60 minutes Subjective - Subjective Patient Reports: Diarrhea (Improving), Pain (Everytime he gets up or does anything he has pain all over but mostly in the back), Other (No fevers, no chills.) Nursing Reports: No Complaints Objective Vital Signs: Vital Signs - 24 hr 10/13/17 10/13/17 10/13/17 15:16 17:10 17:56 Temperature 36.4 C L Heart Rate [ 56 L 74 Brachial] Heart Rate [ Radial] Respiratory 16 16 Rate Blood Pressure [Left Radial artery] Blood Pressure 133/77 H 185/67 H [Right Brachial artery] O2 Saturation 96 10/13/17 10/13/17 10/14/17 20:37 21:00 00:35 Temperature 37.0 C 36.6 C Heart Rate [ 101 H 82 110 H Brachial] Heart Rate [ Radial] Respiratory 16 16 Rate Blood Pressure 153/96 H [Left Radial artery] Blood Pressure 158/79 H [Right Brachial artery] O2 Saturation 96 97 10/14/17 10/14/17 10/14/17 03:21 07:48 11:04 Temperature 36.8 C Heart Rate [ 110 H 41 L Brachial] Heart Rate [ 105 H Radial] Respiratory 18 16 Rate Blood Pressure 146/93 H [Left Radial artery] Blood Pressure 148/96 H [Right Brachial artery] O2 Saturation 96 97 98 Oxygen O2 Source Nasal cannula I&O (Last 24 Hrs): Intake and Output Totals x24h 10/12/17 10/13/17 10/14/17 23:59 23:59 23:59 Intake Total 2498.334 3230.000 2081.667 Output Total 250 520 600 Balance 2248.334 2710.000 1481.667 General: Alert, Oriented x3, Mild distress (secondary to pain), Other (Drowsy) HEENT: Atraumatic, PERRLA, EOMI, Other (Dry mucus membranes) Neck: Supple, No JVD, No thyromegaly, +2 carotid pulse wo bruit, No LAD Lymphatic: no adenopathy Neuro: Alert, Non Focal, CN 2-12 Grossly Intact, Oriented Times 3 Cardiovascular: No murmurs, Other (Tachycardic) Respiratory: Chest non-tender, No respiratory distress, Breath sounds nml Abdomen: Normal bowel sounds, Soft, No tenderness, No hepatospenomegaly, No masses Extremities: No clubbing, No cyanosis, No edema, Normal pulses Skin: No rashes, No breakdown - Results Results: Laboratory Results WBC 14.7 x10^3/uL (4.8-10.8) H 10/13/17 08:30 RBC 3.13 10^6/uL (4.70-6.10) L 10/13/17 08:30 Hgb 9.1 g/dL (14.0-18.0) L 10/13/17 08:30 Hct 27.4 % (42.0-52.0) L 10/13/17 08:30 MCV 87.5 fL (80.0-94.0) 10/13/17 08:30 MCH 29.1 pg (27.0-31.0) 10/13/17 08:30 MCHC 33.2 g/dL (32.0-36.0) 10/13/17 08:30 RDW 15.5 % (12.0-15.0) H 10/13/17 08:30 Plt Count 464 10^3/uL (130-450) H 10/13/17 08:30 MPV 7.5 fL (7.4-11.4) 10/13/17 08:30 Neut # (Auto) Not Reportable 10/13/17 08:30 Lymph # (Auto) Not Reportable 10/13/17 08:30 Loíza # (Auto) Not Reportable 10/13/17 08:30 Eos # (Auto) Not Reportable 10/13/17 08:30 Baso # (Auto) Not Reportable 10/13/17 08:30 Absolute Nucleated RBC Not Reportable 10/13/17 08:30 Total Counted 100 10/13/17 08:30 Band Neuts % (Manual) 1 % (0-10) 10/13/17 08:30 Abnorm Lymph % (Manual) 0 % 10/13/17 08:30 Metamyelocytes % 3 % (-0) H 10/13/17 08:30 Myelocytes % 2 % (-0) H 10/13/17 08:30 Nucleated RBC % Not Reportable 10/13/17 08:30 Neutrophils # (Manual) 9.3 10^3/uL (1.5-6.6) H 10/13/17 08:30 Lymphocytes # (Manual) 4.1 10^3/uL (1.5-3.5) H 10/13/17 08:30 Monocytes # (Manual) 0.6 10^3/uL (0.0-1.0) 10/13/17 08:30 Eosinophils # (Manual) 0.0 10^3/uL (0-0.7) 10/13/17 08:30 Basophils # (Manual) 0.0 10^3/uL (0-0.1) 10/13/17 08:30 Differential Comment MANUAL DIFFERENTIAL 10/13/17 08:30 Platelet Estimate INCREASED (>450,000) (NORMAL) 10/13/17 08:30 Platelet Morphology 1+ GIANT PLATELETS (NORMAL) PLATELET CLUMPING (NORMAL) 10/13/17 08:30 Platelet Morphology 1+ GIANT PLATELETS (NORMAL) PLATELET CLUMPING (NORMAL) 10/13/17 08:30 RBC Morph Micro Appear 1+ ANISOCYTOSIS (NORMAL) 1+ POLYCHROMASIA (NORMAL) 10/13/17 08:30 RBC Morph Micro Appear 1+ ANISOCYTOSIS (NORMAL) 1+ POLYCHROMASIA (NORMAL) 10/13/17 08:30 Sodium 134 mmol/L (135-145) L 10/13/17 08:30 Potassium 4.7 mmol/L (3.5-5.0) 10/13/17 08:30 Chloride 103 mmol/L (101-111) 10/13/17 08:30 Carbon Dioxide 20 mmol/L (21-32) L 10/13/17 08:30 Anion Gap 11.0 (6-13) 10/13/17 08:30 BUN 18 mg/dL (6-20) 10/13/17 08:30 Creatinine 0.9 mg/dL (0.6-1.2) 10/13/17 08:30 Estimated GFR (MDRD) 84 (>89) L 10/13/17 08:30 Glucose 118 mg/dL (70-100) H 10/13/17 08:30 Calcium 9.9 mg/dL (8.5-10.3) 10/13/17 08:30 Ionized Calcium NO 10/13/17 08:30 Total Bilirubin 0.6 mg/dL (0.2-1.0) 10/13/17 08:30 AST 27 IU/L (10-42) 10/13/17 08:30 ALT 15 IU/L (10-60) 10/13/17 08:30 Alkaline Phosphatase 133 IU/L (42-121) H 10/13/17 08:30 Total Protein 6.4 g/dL (6.7-8.2) L 10/13/17 08:30 Albumin 2.1 g/dL (3.2-5.5) L 10/13/17 08:30 Globulin 4.3 g/dL (2.1-4.2) H 10/13/17 08:30 Albumin/Globulin Ratio 0.5 (1.0-2.2) L 10/13/17 08:30 TSH 1.44 uIU/mL (0.34-5.60) 10/13/17 05:30 ABX Reporting Has patient been on IV antibiotics over the past 48 hours?: No Current Medications - Current Medications Current Medications: Active Medications Generic Name Dose Route Start Last Admin Trade Name Freq PRN Reason Stop Dose Admin Dexamethasone 4 mg 10/14/17 08:00 10/14/17 10:56 Decadron PO 4 mg DAILYWM MONSTER Administration Ferrous Sulfate 325 mg 10/13/17 08:00 10/14/17 10:57 Feosol PO 325 mg DAILYWM MONSTER Administration Folic Acid 1 mg 10/13/17 09:00 10/14/17 10:58 PO 1 mg DAILY MONSTER Administration Gabapentin 300 mg 10/12/17 06:00 10/14/17 14:01 Neurontin PO 300 mg TID MONSTER Administration Lorazepam 1 mg 10/12/17 12:16 Ativan PO Q6H PRN Anxiety Metoprolol Succinate 75 mg 10/14/17 09:00 10/14/17 10:58 Toprol Xl PO 75 mg DAILY MONSTER Administration Mineral Oil 1 applic 10/14/17 11:22 Cavilon TOP PRN PRN Skin Care Morphine Sulfate 30 mg 10/12/17 09:00 10/14/17 10:59 PO 30 mg BID MONSTER Administration Multi-Ingredient Ointment 1 applic 10/12/17 20:17 Zinc Oxide TOP PRN PRN Skin Care Multi-Ingredient Ointment 1 applic 10/14/17 11:22 Zinc Oxide TOP PRN PRN Skin Care Oxycodone HCl 5 mg 10/12/17 00:15 10/14/17 12:24 Roxicodone PO 5 mg Q4HR PRN Administration Pain 5 to 7 Enzalutamide [Xtandi 160 each 10/12/17 09:00 10/14/17 11:00 ] 160 Mg PO Not Given DAILY [facility] Polyethylene Glycol 17 gm 10/12/17 09:00 10/14/17 11:00 Miralax PO Not Given DAILY [facility] Prochlorperazine Edisylate 10 mg 10/12/17 00:15 10/13/17 17:07 Compazine Inj IVP 10 mg Q6HR PRN Administration Nausea / Vomiting Saccharomyces Boulardii 500 mg 10/12/17 01:00 10/14/17 10:57 Florastor PO 500 mg BIDWM MONSTER Administration Simethicone 80 mg 10/12/17 01:00 10/14/17 14:02 Mylicon PO 80 mg 0900,1300,1800,2100 MONSTER Administration Sodium Chloride 10 ml 10/12/17 00:15 10/14/17 06:05 Normal Saline Flush 0.9% IVP 10 ml PRN PRN Administration NEEDED PER PROVIDER ORDERS Sodium Chloride 10 ml 10/12/17 01:00 10/14/17 11:01 Normal Saline Flush 0.9% IVP 10 ml 0100,0900,1700 MONSTER Administration Temazepam 15 mg 10/12/17 00:21 Restoril PO QPM PRN Insomnia Vancomycin HCl 125 mg 10/12/17 09:00 10/14/17 14:02 Vancocin PO 125 mg QID MONSTER Administration Enzalutamide [Xtandi] 160 mg PO DAILY 03/30/17 Gabapentin 900 mg PO TID 07/27/17 Dexamethasone 4 mg PO 0700 09/28/17 Methadone 2.5 mg PO TID 09/28/17 Sennosides [Senna] 17.2 mg PO TID 09/28/17 Leuprolide [Lupron] 22.5 mg IM Q84D 10/09/17
--- NOTE | 2017-10-14 13:52 | CONSULTATION NOTE ---
Palliative Care Follow Up - Referral Referring Provider: Dr. Romeo Bell Time of Visit: [id number] Referral setting: Hospitalized patient Referral Reason: Met Prostate Cancer/Neuroendocrine Cancer/Goals of Care - Information Sources Records reviewed: RN notes reviewed, Previous records reviewed History/Review of Systems obtained from: Patient, Family (message left for ; no present for visit; patient amendable to meeting without her) Exam limitations: Clinical condition (patient with some lethargy; but able to converse and engage; did not appear confused) - History of Present Illness Update Brief HPI Update: This is a 71-year-old gentleman with refractory prostate cancer, 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 He presented acutely to the hospital with dehydration, acute renal insufficiency, and diagnosed with C. difficile colitis. He continues to complain of abdominal fullness, belching, but reports diarrhea resolving. He has early satiety, and decreased intake, but is trying to work on his food and fluids. He does recall his conversation with Dr. Benitez, At this point has chosen to proceed with chemotherapy, and placement of the port. Patient agreed to a check-in, he reports is easily fatigues, and does not like to talk about distressing topics. Allowed patient to lead conversation , open ended questions, and answered questions presented. Patient remains still lethargic, but much more clear, and answering and asking questions directly. Social History - Living Situation Living arrangement: At home Living Situation: With spouse/s.o., With family (son and grandson) Medications/Allergies - Medications Active Medication List: Active Medications Dexamethasone (Decadron) 4 mg PO DAILYWM [facility] Last Admin: 10/14/17 10:56 Dose: 4 mg Ferrous Sulfate (Feosol) 325 mg PO DAILYWM [facility] Last Admin: 10/14/17 10:57 Dose: 325 mg Folic Acid () 1 mg PO DAILY [facility] Last Admin: 10/14/17 10:58 Dose: 1 mg Gabapentin (Neurontin) 300 mg PO TID [facility] Last Admin: 10/14/17 06:00 Dose: 300 mg Lorazepam (Ativan) 1 mg PO Q6H PRN PRN Reason: Anxiety Metoprolol Succinate (Toprol Xl) 75 mg PO DAILY [facility] Last Admin: 10/14/17 10:58 Dose: 75 mg Mineral Oil (Cavilon) 1 applic TOP PRN PRN PRN Reason: Skin Care Morphine Sulfate () 30 mg PO BID [facility] Last Admin: 10/14/17 10:59 Dose: 30 mg Multi-Ingredient Ointment (Zinc Oxide) 1 applic TOP PRN PRN PRN Reason: Skin Care Multi-Ingredient Ointment (Zinc Oxide) 1 applic TOP PRN PRN PRN Reason: Skin Care Oxycodone HCl (Roxicodone) 5 mg PO Q4HR PRN PRN Reason: Pain 5 to 7 Last Admin: 10/14/17 12:24 Dose: 5 mg Enzalutamide [Xtandi (] 160 Mg) 160 each PO DAILY [facility] Last Admin: 10/14/17 11:00 Dose: Not Given Polyethylene Glycol (Miralax) 17 gm PO DAILY [facility] Last Admin: 10/14/17 11:00 Dose: Not Given Prochlorperazine Edisylate (Compazine Inj) 10 mg IVP Q6HR PRN PRN Reason: Nausea / Vomiting Last Admin: 10/13/17 17:07 Dose: 10 mg Saccharomyces Boulardii (Florastor) 500 mg PO BIDWM [facility] Last Admin: 10/14/17 10:57 Dose: 500 mg Simethicone (Mylicon) 80 mg PO 0900,1300,1800,2100 [facility] Last Admin: 10/14/17 11:01 Dose: 80 mg Sodium Chloride (Normal Saline Flush 0.9%) 10 ml IVP PRN PRN PRN Reason: NEEDED PER PROVIDER ORDERS Last Admin: 10/14/17 06:05 Dose: 10 ml Sodium Chloride (Normal Saline Flush 0.9%) 10 ml IVP 0100,0900,1700 [facility] Last Admin: 10/14/17 11:01 Dose: 10 ml Temazepam (Restoril) 15 mg PO QPM PRN PRN Reason: Insomnia Vancomycin HCl (Vancocin) 125 mg PO QID [facility] Last Admin: 10/14/17 11:01 Dose: 125 mg Enzalutamide [Xtandi] 160 mg PO DAILY 03/30/17 Gabapentin 900 mg PO TID 07/27/17 Dexamethasone 4 mg PO 0700 09/28/17 Methadone 2.5 mg PO TID 09/28/17 Sennosides [Senna] 17.2 mg PO TID 09/28/17 Leuprolide [Lupron] 22.5 mg IM Q84D 10/09/17 - Allergies Allergies/Adverse Reactions: Allergies Allergy/AdvReac Type Severity Reaction Status Date / Time No Known Drug Allergies Allergy Verified 05/26/16 11:30 Review of Systems - Constitutional Constitutional: reports: Fatigue, Poor appetite, Weight loss - Cardiovascular Cardiovascular: reports: Decr. exercise tolerance - Gastrointestinal Gastrointestinal: reports: Abdominal distention, Early satiety. denies: Nausea - Musculoskeletal Musculoskeletal: reports: Muscle weakness - Other Findings Other Findings: limited ROS Physical Exam - Vital Signs Vital Signs: Vital Signs x48h Temp Pulse Pulse Resp BP Pulse Ox 10/14/17 11:04 105 H 98 10/14/17 07:48 36.8 C 41 L 16 146/93 H 97 - Physical Exam General Appearance: positive: No acute distress, Lethargic Eyes Bilateral: positive: Normal inspection Respiratory: positive: No respiratory distress Skin: positive: Pallor Neurologic/Psychiatric: positive: Oriented x3, Weakness Palliative Care Pain: Pain improved (patient did not want to talk about his pain other than it was better; still remains a concern) - Palliative Care Discussion: Patient shared had previous experience with palliative care in [place] in 2013, with original diagnosis of prostate cancer with [place] score of 9. Did not find it helpful service or support at that time. I shared that is helpful information to have, and explained can provide or offer support regarding issues /concerns based on what is going or setting he is in, it is up to him and Katerin. 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 He does not like to revisit or talk about distressing things regarding his illness or decline, but he went on to ask questions about his chemotherapy and support for EOL. Discussed can weigh benefits and burdens of the chemotherapy with each treatment, given some uncertainty about this. Generically reviewed hospice, and addressed questions that arose around this, as well as assurance regarding support for family. Agreed to be available for questions, concerns, or support for symptom management as was helpful to both him and . Left message with Katerin for questions and if wanted to meet. 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 Patient continues to be quite fragil, with decereased intake, though is in improving as far as hydration, pain seems somewhat better controlled though still appears uncomfortable. It has been a challenge to find a balance between sedation and pain relief, but he feels he is doing better. Palliative care to remain available to provide support as accepted. Recommendations/Counseling Done: 1. Pain of neoplastic origin. Patient currently on MS Contin 30 mg twice daily , does appear to be tolerating this without undue side effects of continues with mild lethargy. Would continue the gabapentin 300 mg 3 times daily, as well as try and transition to oral pain meds in preparation for transition to SNF. 2. Abdominal discomfort. The patient does have significant history of constipation, despite his recent bout of C. difficile. Patient presents with belching, abdominal tightness, and discomfort. Will want to restart senna fairly soon, noting the complexity of balance when balancing with history of C. difficile. 3. Advanced care planning. Patient's goals at this point in time are to move forward with chemotherapy, including port placement. Patient is hoping for increased quality of life, improvement of functional status, and to be able to return home. Given the complexity of the last few days, would encourage to have tour [facility] prior to discharge, this will allow her to have a better understanding of expectations of care in that transition. Palliative care to be available for support, as patient and desire. Can follow over to SNF. Time Spent: 45 minutes was given 50% of this done in counseling regarding addressing patient's questions for anticipatory guidance.
[2017-10-15] MEDS: PANTOPRAZOLE 40 MG TABLET PO SCH ×2 (00:06→06:00)
[2017-10-15] MEDS: oxyCODONE 5 MG TABLET PO PRN (00:06)
[2017-10-15] MEDS: SODIUM CHLORIDE FLUSH 0.9% 10 ML SYRINGE IVP SCH ×3 (00:06→17:56)
[2017-10-15] MEDS: GABAPENTIN 300 MG CAPSULE PO SCH ×3 (05:53→22:17)
[2017-10-15] MEDS: METOPROLOL SUCCINATE 50 MG TABLET PO SCH (09:09)
[2017-10-15] MEDS: SACCHAROMYCES BOULARDII 250 MG CAPSULE PO SCH ×2 (09:09→17:56)
[2017-10-15] MEDS: MORPHINE ER 15 MG TABLET PO SCH ×2 (09:10→22:17)
[2017-10-15] MEDS: VANCOMYCIN 125 MG CAPSULE PO SCH ×4 (09:10→22:17)
[2017-10-15] MEDS: SIMETHICONE CHEW 80 MG TABLET PO SCH ×4 (09:10→22:17)
[2017-10-15] MEDS: DEXAMETHASONE 4 MG TABLET PO SCH (09:10)
[2017-10-15] MEDS: FERROUS SULFATE 325 MG TABLET PO SCH (09:10)
[2017-10-15] MEDS: FOLIC ACID 1 MG TABLET PO SCH (09:10)
[2017-10-15] MEDS: Enzalutamide [Xtandi] 160 MG PO SCH (09:11)
[2017-10-15] MEDS: POLYETHYLENE GLYCOL 3350 17 GM PACKET PO SCH ×2 (09:11)
[2017-10-15] MEDS: SENNA 8.6 MG TABLET PO SCH (09:11)
--- NOTE | 2017-10-15 10:59 | XRAY Report ---
Reason: line placement verification Procedure Date: 10/15/2017 Accession Number: [id number] / [id number] Procedure: XR - Chest for Line Placement CPT Code: FULL RESULT: EXAM: CHEST RADIOGRAPHY EXAM DATE: 10/15/2017 10:41 AM. CLINICAL HISTORY: Line placement COMPARISON: Chest radiograph 10/09/2017. TECHNIQUE: 1 view. FINDINGS: Left upper terminate PICC, tip overlies the right atrium. Lungs/Pleura: No focal opacities evident. No pleural effusion. No pneumothorax. Mediastinum: Within exam limitations, the cardiomediastinal contour is normal. IMPRESSION: Left upper terminate PICC tip overlies the right atrium RADIA
--- NOTE | 2017-10-15 10:59 | XRAY Report ---
Reason: line placement verification Procedure Date: 10/15/2017 Accession Number: [id number] / [id number] Procedure: XR - Chest for Line Placement CPT Code: FULL RESULT: EXAM: CHEST RADIOGRAPHY EXAM DATE: 10/15/2017 10:42 AM. CLINICAL HISTORY: Line placement COMPARISON: Chest radiograph earlier today. TECHNIQUE: 1 view. FINDINGS: Left upper extremity PICC tip overlies the superior cavoatrial junction. Lungs/Pleura: No focal opacities evident. No pleural effusion. No pneumothorax. Mediastinum: Within exam limitations, the cardiomediastinal contour is normal. IMPRESSION: Left upper extremity PICC tip overlies the cavoatrial junction RADIA
--- NOTE | 2017-10-15 18:26 | PROVIDER PROGRESS NOTE ---
Assessment/Plan - Problem List (1) C. difficile diarrhea Assessment/Plan: Stool culture is neg for bacteria (Shigell, salmonell, etc). BMs continue to decrease Patient left AMA on 10/11/17 but returned 2 hours later Continue po Vanco, for a 10 day course today is day 6 of 10 Continue Florastor. WBC improved today down from 20K to 12K could be secondary to steroids as patient is not spiking fevers Patient is very weak and seen by PT who recommend SNF Patient looks better today if he continues to improve [facility] (2) Paroxysmal A-fib Assessment/Plan: Afib started on 10/11/17 at 0200 over night this last night and he is in and out of it. When his HR is at it's highest, he is in Afib. He had an Echo done and showed normal resting LVEF and no pulminary HTN. Trop negative. TSh pending, T3 and T4 were normal HR elevated today therefore increased Toprol XL to 75 mg His CHADS score = 0 (no CHF, HTN, Age>75, DM or Stroke hx), therefore no anticoagulation needed, but started a baby ASA daily. Stable (3) Dehydration Assessment/Plan: Resolved Patient eating well (4) Hyponatremia Assessment/Plan: Na 132 Stable (5) Acute kidney injury superimposed on chronic kidney disease Assessment/Plan: Resolved with IVFs Avoid nephrotoxic agents (6) Anemia Assessment/Plan: Labs show low iron levels and low folate. Will continue oral ferrous gluconate daily and oral folic acid daily. (7) Metastatic malignant neuroendocrine tumor to liver Assessment/Plan: Patient being followed by Chasidy Tello and [facility] Patient wants to continue with Chemo This can be done as an outpatient once he is improved from current illness Patient had PICC line placed today as surgery decided not to place Port in the setting of infection (8) Chronic pain due to malignant neoplastic disease Assessment/Plan: Chasidy Bellamy (Palliative Care) following for pain meds and management. He was on Gabapentin 900 mg tid at home and Oxycodone was being decreased and Methadone was at 2.5 mg bid and just increased to 5 mg bid. Here he got a 5 mg dose of methadone, which caused over-sedation. Now the patient is declining to take any Methadone. Patient states his pain is controlled Currently he is on gabapentin 300 mg 3 times daily, morphine extended release 30 mg p.o. twice daily and dexamethasone 4 mg twice daily Pain is controlled today with PO meds (9) Spinal stenosis Assessment/Plan: Continue with pain management. Elective lumbar surgery is no longer planned. (10) Abnormal EKG Assessment/Plan: Echo showed normal resting LVEF. He would have needed a pre-op pharmaceutical stress test, but no lumbar surgery is being considered any longer. (11) Severe protein calorie malnutrition Assessment/Plan: Patient has nutritional intake of less than 50% of recommended intake for greater than 2 weeks, he has had a weight loss of 13% in 6 months and has significantly reduced functional capacity with increasing weakness. Ensure with meals 1 mg folic acid daily Iron supplements Improved PO intake of food today - Current Meds Current Meds: Current Medications Generic Name Dose Route Start Last Admin Trade Name Freq PRN Reason Stop Dose Admin Dexamethasone 4 mg 10/14/17 08:00 10/15/17 09:10 Decadron PO 4 mg DAILYWM [facility] Administration Ferrous Sulfate 325 mg 10/13/17 08:00 10/15/17 09:10 Feosol PO 325 mg DAILYWM [facility] Administration Folic Acid 1 mg 10/13/17 09:00 10/15/17 09:10 PO 1 mg DAILY [facility] Administration Gabapentin 300 mg 10/12/17 06:00 10/15/17 14:21 Neurontin PO 300 mg TID [facility] Administration Metoprolol Succinate 75 mg 10/14/17 09:00 10/15/17 09:09 Toprol Xl PO 75 mg DAILY [facility] Administration Morphine Sulfate 30 mg 10/12/17 09:00 10/15/17 09:10 PO 30 mg BID [facility] Administration Oxycodone HCl 5 mg 10/12/17 00:15 10/15/17 00:06 Roxicodone PO 5 mg Q4HR PRN Administration Pain 5 to 7 Pantoprazole Sodium 40 mg 10/14/17 23:00 10/15/17 06:00 Protonix PO 40 mg QDAC [facility] Administration Enzalutamide [Xtandi 160 each 10/12/17 09:00 10/15/17 09:11 ] 160 Mg PO Not Given DAILY [facility] Polyethylene Glycol 17 gm 10/12/17 09:00 10/15/17 09:11 Miralax PO Not Given DAILY [facility] Polyethylene Glycol 17 gm 10/15/17 09:00 10/15/17 09:11 Miralax PO Not Given DAILY [facility] Prochlorperazine Edisylate 10 mg 10/12/17 00:15 10/13/17 17:07 Compazine Inj IVP 10 mg Q6HR PRN Administration Nausea / Vomiting Saccharomyces Marilyi 500 mg 10/12/17 01:00 10/15/17 17:56 Florastor PO 500 mg BIDWM [facility] Administration Senna 8.6 - 17.2 mg 10/15/17 09:00 10/15/17 09:11 Senokot PO Not Given DAILY [facility] Simethicone 80 mg 10/12/17 01:00 10/15/17 17:56 Mylicon PO 80 mg 0900,1300,1800,2100 [facility] Administration Sodium Chloride 10 ml 10/12/17 00:15 10/14/17 06:05 Normal Saline Flush 0.9% IVP 10 ml PRN PRN Administration NEEDED PER PROVIDER ORDERS Sodium Chloride 10 ml 10/12/17 01:00 10/15/17 17:56 Normal Saline Flush 0.9% IVP 10 ml 0100,0900,1700 [facility] Administration Vancomycin HCl 125 mg 10/12/17 09:00 10/15/17 17:56 Vancocin PO 125 mg QID [facility] Administration - Lab Result Lab results reviewed: Yes Fish Bone Diagrams: 10/13/17 08:30 10/13/17 08:30 - Additional Planning Condition/Complexity: Improved My Orders: My Active Orders 10/15/17 08:00 PICC Line Care [RC] Q7D PICC Line Insert [RC] .ONCE 10/15/17 09:00 Polyethylene Glycol 3350 [Miralax] 17 gm PO DAILY Senna [Senokot] 8.6 - 17.2 mg PO DAILY 10/15/17 Lunch Regular Diet [DIET] 10/16/17 05:00 CBC - COMP BLD CT W/AUTO DIFF [HEME] DAILYLAB CMP, RFLX TO IONIZED CA IF [CHEM] DAILYLAB MAGNESIUM [CHEM] DAILYLAB PHOSPHORUS [CHEM] DAILYLAB 10/17/17 05:00 CBC - COMP BLD CT W/AUTO DIFF [HEME] DAILYLAB CMP, RFLX TO IONIZED CA IF [CHEM] DAILYLAB MAGNESIUM [CHEM] DAILYLAB PHOSPHORUS [CHEM] DAILYLAB Consult/Specialty: PT Plan Discussed with:: Patient, Family Time Spent: 31-60 minutes Subjective - Subjective Patient Reports: Feeling Better, Abdominal Pain (gas, bloating and lower pelvic pain), Pain (Back, all over) Nursing Reports: No Complaints Objective Vital Signs: Vital Signs - 24 hr 10/14/17 10/15/17 10/15/17 21:00 00:00 05:00 Temperature 36.6 C 36.6 C 36.8 C Heart Rate [ 106 H 92 83 Brachial] Respiratory 18 16 18 Rate Blood Pressure 128/85 H 141/82 H 109/69 [Right Brachial artery] O2 Saturation 94 92 97 10/15/17 10/15/17 07:46 15:28 Temperature 37.0 C 36.4 C L Heart Rate [ 117 H 99 Brachial] Respiratory 20 16 Rate Blood Pressure 130/74 129/66 [Right Brachial artery] O2 Saturation 95 96 Oxygen O2 Source Room air I&O (Last 24 Hrs): Intake and Output Totals x24h 10/13/17 10/14/17 10/15/17 23:59 23:59 23:59 Intake Total 3230.000 2771.667 Output Total 520 1150 275 Balance 2710.000 1621.667 -275 General: Alert, Oriented x3, Cooperative, Mild distress (Pain), Other (Pale looking) HEENT: Atraumatic, PERRLA, EOMI, Mucous membr. moist/pink Neck: Supple, No JVD, No thyromegaly, +2 carotid pulse wo bruit, No LAD Lymphatic: no adenopathy Neuro: Alert, Non Focal, CN 2-12 Grossly Intact, Oriented Times 3 Cardiovascular: Regular rate, Normal S1, Normal S2, No murmurs Respiratory: Chest non-tender, No respiratory distress, Breath sounds nml Abdomen: Soft, Other (Tenderness in the lower abdomen, distension of lower abdomen) Extremities: No clubbing, No cyanosis, No edema, Normal pulses Skin: No rashes, No breakdown - Results Results: Laboratory Results WBC 14.7 x10^3/uL (4.8-10.8) H 10/13/17 08:30 RBC 3.13 10^6/uL (4.70-6.10) L 10/13/17 08:30 Hgb 9.1 g/dL (14.0-18.0) L 10/13/17 08:30 Hct 27.4 % (42.0-52.0) L 10/13/17 08:30 MCV 87.5 fL (80.0-94.0) 10/13/17 08:30 MCH 29.1 pg (27.0-31.0) 10/13/17 08:30 MCHC 33.2 g/dL (32.0-36.0) 10/13/17 08:30 RDW 15.5 % (12.0-15.0) H 10/13/17 08:30 Plt Count 464 10^3/uL (130-450) H 10/13/17 08:30 MPV 7.5 fL (7.4-11.4) 10/13/17 08:30 Neut # (Auto) Not Reportable 10/13/17 08:30 Lymph # (Auto) Not Reportable 10/13/17 08:30 [place] # (Auto) Not Reportable 10/13/17 08:30 Eos # (Auto) Not Reportable 10/13/17 08:30 Baso # (Auto) Not Reportable 10/13/17 08:30 Absolute Nucleated RBC Not Reportable 10/13/17 08:30 Total Counted 100 10/13/17 08:30 Band Neuts % (Manual) 1 % (0-10) 10/13/17 08:30 Abnorm Lymph % (Manual) 0 % 10/13/17 08:30 Metamyelocytes % 3 % (-0) H 10/13/17 08:30 Myelocytes % 2 % (-0) H 10/13/17 08:30 Nucleated RBC % Not Reportable 10/13/17 08:30 Neutrophils # (Manual) 9.3 10^3/uL (1.5-6.6) H 10/13/17 08:30 Lymphocytes # (Manual) 4.1 10^3/uL (1.5-3.5) H 10/13/17 08:30 Monocytes # (Manual) 0.6 10^3/uL (0.0-1.0) 10/13/17 08:30 Eosinophils # (Manual) 0.0 10^3/uL (0-0.7) 10/13/17 08:30 Basophils # (Manual) 0.0 10^3/uL (0-0.1) 10/13/17 08:30 Differential Comment MANUAL DIFFERENTIAL 10/13/17 08:30 Platelet Estimate INCREASED (>450,000) (NORMAL) 10/13/17 08:30 Platelet Morphology 1+ GIANT PLATELETS (NORMAL) PLATELET CLUMPING (NORMAL) 10/13/17 08:30 Platelet Morphology 1+ GIANT PLATELETS (NORMAL) PLATELET CLUMPING (NORMAL) 10/13/17 08:30 RBC Morph Micro Appear 1+ ANISOCYTOSIS (NORMAL) 1+ POLYCHROMASIA (NORMAL) 10/13/17 08:30 RBC Morph Micro Appear 1+ ANISOCYTOSIS (NORMAL) 1+ POLYCHROMASIA (NORMAL) 10/13/17 08:30 Sodium 134 mmol/L (135-145) L 10/13/17 08:30 Potassium 4.7 mmol/L (3.5-5.0) 10/13/17 08:30 Chloride 103 mmol/L (101-111) 10/13/17 08:30 Carbon Dioxide 20 mmol/L (21-32) L 10/13/17 08:30 Anion Gap 11.0 (6-13) 10/13/17 08:30 BUN 18 mg/dL (6-20) 10/13/17 08:30 Creatinine 0.9 mg/dL (0.6-1.2) 10/13/17 08:30 Estimated GFR (MDRD) 84 (>89) L 10/13/17 08:30 Glucose 118 mg/dL (70-100) H 10/13/17 08:30 Calcium 9.9 mg/dL (8.5-10.3) 10/13/17 08:30 Ionized Calcium NO 10/13/17 08:30 Total Bilirubin 0.6 mg/dL (0.2-1.0) 10/13/17 08:30 AST 27 IU/L (10-42) 10/13/17 08:30 ALT 15 IU/L (10-60) 10/13/17 08:30 Alkaline Phosphatase 133 IU/L (42-121) H 10/13/17 08:30 Total Protein 6.4 g/dL (6.7-8.2) L 10/13/17 08:30 Albumin 2.1 g/dL (3.2-5.5) L 10/13/17 08:30 Globulin 4.3 g/dL (2.1-4.2) H 10/13/17 08:30 Albumin/Globulin Ratio 0.5 (1.0-2.2) L 10/13/17 08:30 TSH 1.44 uIU/mL (0.34-5.60) 10/13/17 05:30 ABX Reporting Has patient been on IV antibiotics over the past 48 hours?: No Current Medications - Current Medications Current Medications: Active Medications Generic Name Dose Route Start Last Admin Trade Name Freq PRN Reason Stop Dose Admin Dexamethasone 4 mg 10/14/17 08:00 10/15/17 09:10 Decadron PO 4 mg DAILYWM [facility] Administration Ferrous Sulfate 325 mg 10/13/17 08:00 10/15/17 09:10 Feosol PO 325 mg DAILYWM [facility] Administration Folic Acid 1 mg 10/13/17 09:00 10/15/17 09:10 PO 1 mg DAILY [facility] Administration Gabapentin 300 mg 10/12/17 06:00 10/15/17 14:21 Neurontin PO 300 mg TID [facility] Administration Lorazepam 1 mg 10/12/17 12:16 Ativan PO Q6H PRN Anxiety Metoprolol Succinate 75 mg 10/14/17 09:00 10/15/17 09:09 Toprol Xl PO 75 mg DAILY [facility] Administration Mineral Oil 1 applic 10/14/17 11:22 Cavilon TOP PRN PRN Skin Care Morphine Sulfate 30 mg 10/12/17 09:00 10/15/17 09:10 PO 30 mg BID [facility] Administration Multi-Ingredient Ointment 1 applic 10/12/17 20:17 Zinc Oxide TOP PRN PRN Skin Care Multi-Ingredient Ointment 1 applic 10/14/17 11:22 Zinc Oxide TOP PRN PRN Skin Care Oxycodone HCl 5 mg 10/12/17 00:15 10/15/17 00:06 Roxicodone PO 5 mg Q4HR PRN Administration Pain 5 to 7 Pantoprazole Sodium 40 mg 10/14/17 23:00 10/15/17 06:00 Protonix PO 40 mg QDAC [facility] Administration Enzalutamide [Xtandi 160 each 10/12/17 09:00 10/15/17 09:11 ] 160 Mg PO Not Given DAILY [facility] Polyethylene Glycol 17 gm 10/12/17 09:00 10/15/17 09:11 Miralax PO Not Given DAILY [facility] Polyethylene Glycol 17 gm 10/15/17 09:00 10/15/17 09:11 Miralax PO Not Given DAILY [facility] Prochlorperazine Edisylate 10 mg 10/12/17 00:15 10/13/17 17:07 Compazine Inj IVP 10 mg Q6HR PRN Administration Nausea / Vomiting Saccharomyces Boulardii 500 mg 10/12/17 01:00 10/15/17 17:56 Florastor PO 500 mg BIDWM [facility] Administration Senna 8.6 - 17.2 mg 10/15/17 09:00 10/15/17 09:11 Senokot PO Not Given DAILY [facility] Simethicone 80 mg 10/12/17 01:00 10/15/17 17:56 Mylicon PO 80 mg 0900,1300,1800,2100 [facility] Administration Sodium Chloride 10 ml 10/12/17 00:15 10/14/17 06:05 Normal Saline Flush 0.9% IVP 10 ml PRN PRN Administration NEEDED PER PROVIDER ORDERS Sodium Chloride 10 ml 10/12/17 01:00 10/15/17 17:56 Normal Saline Flush 0.9% IVP 10 ml 0100,0900,1700 [facility] Administration Temazepam 15 mg 10/12/17 00:21 Restoril PO QPM PRN Insomnia Vancomycin HCl 125 mg 10/12/17 09:00 10/15/17 17:56 Vancocin PO 125 mg QID [facility] Administration Enzalutamide [Xtandi] 160 mg PO DAILY 03/30/17 Gabapentin 900 mg PO TID 07/27/17 Dexamethasone 4 mg PO 0700 09/28/17 Methadone 2.5 mg PO TID 09/28/17 Sennosides [Senna] 17.2 mg PO TID 09/28/17 Leuprolide [Lupron] 22.5 mg IM Q84D 10/09/17
[2017-10-16] MEDS: SODIUM CHLORIDE FLUSH 0.9% 10 ML SYRINGE IVP PRN (00:47)
[2017-10-16] MEDS: SODIUM CHLORIDE FLUSH 0.9% 10 ML SYRINGE IVP SCH ×2 (00:47→09:21)
[2017-10-16 05:26] LABS: ALBUMIN 1.8 g/dL (3.2-5.5); ALBUMIN/GLOBULIN RATIO 0.5 (1.0-2.2); ALKALINE PHOSPHATASE 110 IU/L (42-121); ALT ALANINE AMINOTRANSFERASE 12 IU/L (10-60); AST ASPARTATE AMINOTRANSFERASE 18 IU/L (10-42); BILIRUBIN,TOTAL 0.6 mg/dL (0.2-1.0); BUN - BLOOD UREA NITROGEN 13 mg/dL (6-20); CALCIUM 9.2 mg/dL (8.5-10.3); CARBON DIOXIDE - CO2 23 mmol/L (21-32); CHLORIDE 99 mmol/L (101-111); CREATININE 0.9 mg/dL (0.6-1.2); GFR - MDRD 84 (>89); GLUCOSE 94 mg/dL (70-100); MAGNESIUM 1.8 mg/dL (1.7-2.8); PHOSPHORUS 3.3 mg/dL (2.5-4.6); SODIUM 131 mmol/L (135-145); TOTAL PROTEIN 5.3 g/dL (6.7-8.2)
[2017-10-16 05:44] LABS: BASOPHILS % (AUTO) 0.2 %; EOSINOPHILS % (AUTO) 0.6 %; HGB - HEMOGLOBIN 7.8 g/dL (14.0-18.0); LYMPHOCYTES % (AUTO) 15.3 %; MEAN CORPUSCULAR HEMOGLOBIN 29.6 pg (27.0-31.0); MEAN CORPUSCULAR HGB CONC 33.8 g/dL (32.0-36.0); MEAN CORPUSCULAR VOLUME 87.5 fL (80.0-94.0); MEAN PLATELET VOLUME 7.6 fL (7.4-11.4); MONOCYTES % (AUTO) 4.8 %; NEUTROPHILS % (AUTO) 79.1 %; PLT - PLATELET COUNT 332 10^3/uL (130-450); RED BLOOD COUNT 2.63 10^6/uL (4.70-6.10); WHITE BLOOD COUNT 10.7 x10^3/uL (4.8-10.8)
[2017-10-16 05:47] LABS: ABNORMAL LYMPHS % (MANUAL) 0 %
[2017-10-16 06:10] LABS: BAND NEUTROPHILS % (MANUAL) 20 %; DIFFERENTIAL COMMENT MANUAL DIFFERENTIAL; EOSINOPHILS # (MANUAL) 0.1 10^3/uL (0-0.7); LYMPHOCYTES # (MANUAL) 1.1 10^3/uL (1.5-3.5); LYMPHOCYTES % (MANUAL) 10 %; METAMYELOCYTES % (MANUAL) 3 %; MONOCYTES # (MANUAL) 0.5 10^3/uL (0.0-1.0); MYELOCYTES % (MANUAL) 3 %; NEUTROPHILS # (MANUAL) 8.3 10^3/uL (1.5-6.6); NEUTROPHILS % (MANUAL) 58 %; PLATELET ESTIMATE, MANUAL NORMAL (130-450,000) (NORMAL); RBC MORPHOLOGY (MULTIPLE) 1+ HYPOCHROMASIA (NORMAL)
[2017-10-16] MEDS: GABAPENTIN 300 MG CAPSULE PO SCH ×2 (06:22→13:19)
[2017-10-16] MEDS: PANTOPRAZOLE 40 MG TABLET PO SCH (06:22)
[2017-10-16] MEDS ORDERED: POTASSIUM CHLORIDE 20 MEQ TABLET PO SCH (08:00)
[2017-10-16] MEDS: POLYETHYLENE GLYCOL 3350 17 GM PACKET PO SCH ×2 (08:38)
[2017-10-16] MEDS: SENNA 8.6 MG TABLET PO SCH (08:38)
[2017-10-16] MEDS: Enzalutamide [Xtandi] 160 MG PO SCH (08:38)
[2017-10-16] MEDS: SACCHAROMYCES BOULARDII 250 MG CAPSULE PO SCH (09:20)
[2017-10-16] MEDS: FOLIC ACID 1 MG TABLET PO SCH (09:20)
[2017-10-16] MEDS: DEXAMETHASONE 4 MG TABLET PO SCH (09:21)
[2017-10-16] MEDS: METOPROLOL SUCCINATE 50 MG TABLET PO SCH (09:21)
[2017-10-16] MEDS: SIMETHICONE CHEW 80 MG TABLET PO SCH ×2 (09:21→13:19)
[2017-10-16] MEDS: MORPHINE ER 15 MG TABLET PO SCH (09:21)
[2017-10-16] MEDS: VANCOMYCIN 125 MG CAPSULE PO SCH ×2 (09:21→13:19)
[2017-10-16] MEDS: FERROUS SULFATE 325 MG TABLET PO SCH (09:21)
--- NOTE | 2017-10-16 10:06 | ADVANCE CARE PLANNING NOTE ---
Advance Care Planning - Date/Time Date: 10/16/17 Time: 08:00 - Purpose of encounter Text: To fill out a pulse form and establish goals of care. - Parties in attendance Parties in attendance: Patient Rafael Toneyr and myself Dr. Bell - Decisional capacity Decisional capacity of: Patient is fully alert, awake and oriented 3. He has full decision-making capacity and shows total insight into his medical condition. - Subjective/Patient's story Subjective/Patient's story: Patient is a 71-year-old gentleman with unfortunate history of metastatic prostate cancer and new diagnosis of aggressive neuroendocrine cancer. He states that he was first diagnosed with prostate cancer when he was in [place] more than 4 years ago. He states he underwent a prostatectomy and was continued on chronic treatment with Lupron. He states the whole ordeal was a little traumatizing and he and his decided to move up to [facility] to get away. He [place]. He used to spend some time here when he was younger and was studying at the [employer]. He had his moved up here and live with their son and grandson. The patient was recently diagnosed with a second cancer. A neuroendocrine cancer that is very aggressive. The patient has a full understanding that his cancer is incurable. He also understands that he has a very limited life expectancy. He states that he wants some more time to get some things in order and be able to give his some more time. He states that his is his best friend and more than anything he hates to see her go through this with him. He wishes to live as long as possible as long as he has some quality of life. Although he does realize that his quality of life will not be anywhere near what it once was. He would like to continue on with chemotherapy in the hopes of prolonging his life for at least a few more months. He would like to take this time to get some things in order and spend some more quality time with his . - Objective/Medical story Objective/Medical Story: Patient is a 71-year-old gentleman with metastatic prostate cancer, castration refractory. 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 The patient is currently on Lupron every 3 months and Xtandi which she has been taking since February 2017. The patient was originally diagnosed with [place] score 9 prostate cancer with positive pelvic lymph node metastasis. He failed bicalutamide and ketoconazole in the past. A bone scan in June 2017 revealed abnormal uptake at T8 vertebral bodies. The patient was found to have a right pelvic mass compressing the right ureter, this is status post stent placement for right hydronephrosis. 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 He deals with a great deal of pain secondary to his cancer and has been on chronic pain medication. Recently he has developed a failure to thrive at home and developed dehydration with weight loss. He has been admitted to [facility] with Clostridium difficile colitis. The patient has been on antibiotics for his C. difficile since being admitted to the hospital. He is now improving to the point where he will be discharged to [facility] for detention, physical therapy and occupational therapy treatment. The patient is planning on starting another round of chemotherapy on 10/19/2017. A PICC line has been placed during this hospitalization for chemotherapy. - Goals of Care Goals of care determinations: The patient has decided that he would like to be a DO NOT RESUSCITATE. He also wants to limit his medical treatment as he does not want intubation or any heroic or excessive measures of treatment. He states that he does want to continue with chemotherapy and see how he tolerates it. He would want to receive IV fluids or antibiotics for symptom relief. He would want to be hospitalized if need be to deal with complications of chemotherapy or new infections. - Plan Plan: Patient will be discharged to [facility] later this afternoon. He will receive physical therapy at [facility] to help strengthen his muscles. We completed a pulsed form which indicates the patient is a DO NOT RESUSCITATE and DO NOT INTUBATE. The patient is scheduled to continue with chemotherapy on 10/19/2017. The patient will be discharged to [facility] with oral vancomycin to complete treatment for his C. difficile colitis. - Code Status Code Status: Do Not Attempt Resuscitation - Time Spent on Advance Care Planning Time spent on advance care plannin Minutes
--- NOTE | 2017-10-16 10:31 | Discharge Plan ---
"Discharge Plan for SNF / [facility] - DC Plan and Transition Orders Disposition: 03 SNF DC/Xfer Condition: Fair SNF Transition Orders: Admit to: [Kathy] under the care of [Dioni Smart MD] Discharge Diagnosis: [1. C. difficile diarrhea 2. Paroxysmal atrial fibrillation 3. Dehydration 4. Hyponatremia 5. Acute kidney injury superimposed on chronic kidney disease 6. Anemia 7. Metastatic malignant neuroendocrine tumor to liver 8. 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 Metastatic prostate cancer 10. Spinal stenosis 11. Severe protein calorie malnutrition ] Medicare Certification: I certify that [facility] care is medically necessary on a continuing basis for any of the conditions for which she/he is receiving care during hospitalization. Notify PCP of admission and forward orders to primary provider for signature. Weight on admission and [Weekly]. Call PCP immediately if weight increases by [ 10] pounds or if patient develops dyspnea, chest pain/tightness or edema. House Bowel Program: [Yes] If no BM after 2 days, nurse may give M.O.M. 30ml PO PRN and /or ducolax Supp 1 OR and /or ELIANA 250mg P.O., and/or senna 1-2 tabs PO. On day 3 nurse may give repeat above order until residents constipation is resolved. Immunizations: Annual Influenza Vaccine: [Yes]. (between Oct 23 and May 22.) Unless allergy or already given Two-Step PPD: [Yes] per [facility] [id number] or appropriate documentation of approved exceptions Treatments & Other Orders: [ Please ensure patient has a raised toilet seat Patient will need lab draw on 10/18/17 prior to chemotherapy and will need to be transported to the [facility] clinic Patient will need to be transported to the [facility] clinic for chemotherapy on Please keep PICC line in and change dressing weekly as this is needed for chemotherapy] Oxygen Orders: [None] Lab Tests or X-Rays Orders: [None] Orthopedic Orders: [None]. Medications: PLEASE REFER TO THE DISCHARGE MEDICATION LIST. Insulin Orders? [No] Diagnosis: None Initiate hypo and hyperglycemia protocols for BG <70 and BG >375. May check BG prn for signs/symptoms of dysglycemia. Frequency of BG checks: [None] Basal Insulin: [] Lantus 100 units / ml inject subq as follows: [] [] Other: [] Correction Insulin: - Select the type of insulin below [Choose: Novolog/Humalog]100 units /ml insulin inject subq per orders indicate below [] LOW DOSE [] MODERATE DOSE [] MODERATE/HIGH DOSE [] HIGH DOSE GB UNITS GB UNITS GB UNITS GB UNITS 61-140 0 UNITS 61-140 0 UNITS 61-140 0 UNITS 61-140 0 UNITS 141-175 1 UNITS 141-175 1 UNITS 141-175 2 UNITS 141-175 3 UNITS 176-225 2 UNITS 176-225 3 UNITS 176-225 4 UNITS 176-225 5 UNITS 226-275 3 UNITS 226-275 5 UNITS 226-275 6 UNITS 226-275 7 UNITS 276-325 4 UNITS 276-325 7 UNITS 276-325 8 UNITS 276-325 9 UNITS 326-375 5 UNITS 326-375 9 UNITS 326-375 10 UNITS 326-375 11 UNITS >375 CONTACT MD >375 CONTACT MD >375 CONTACT MD >375 CONTACT MD Custom Dosing: [Choose: None/Novolog/Humalog] 100 units/ml Insulin inject subq as follows: GB Units 61-140 [] Units 141-175 [] Units 176-225 [] Units 226-275 [] Units 276-325 []Units 326-375 [] Units >375 Contact MD Allergies and Adverse Reactions: Allergies Allergy/AdvReac Type Severity Reaction Status Date / Time No Known Drug Allergies Allergy Verified 05/26/16 11:30 - Medications New Prescriptions: oxyCODONE [Roxicodone] 5 mg PO Q4HR PRN #30 tablet PRN Reason: Pain 5 to 7 Ferrous Sulfate 325 mg PO DAILYWM #30 tablet Morphine ER 30 mg PO BID #30 tablet Saccharomyces Boulardii [Florastor] 250 mg PO BID #8 capsule Simethicone [Gas Relief] 80 mg PO QID #10 tab.chew Vancomycin [Vancocin] 125 mg PO QID 4 Days #16 capsule - Diet Type: Geriatric Texture: Regular Liquids: Thin May have monthly special meal: Yes - Therapies | Activity Therapy: Evaluation | Treat if indicated: PT, OT Rehabilitation Potential: Maximize functional status Activity: Activity as Tolerated Weight Bearing: Full Weight Assistance Devices: Walker Additional Instructions: Patient will need to be transferred for Chemotherapy on 10/19/17 to the [facility] clinic. Please leave his PICC line in and do dressing changes every 7 days. Follow Up: [facility] clinic for lab draw on 10/18/17 and chemotherapy on 10/19/17. Continue PO vancomycin till 10/19/17."
--- NOTE | 2017-10-16 10:49 | DISCHARGE SUMMARY ---
Discharge Summary Admit Date: 10/11/17 Discharge Date: 10/16/17 Discharging Provider: Fabio Bell MD Primary Care Provider: Pramod Grigsby MD Code Status: Do Not Attempt Resuscitation Condition at Discharge: Fair Discharge Disposition: SNF DC/Xfer Discharge Facility Name: [facility] - DIAGNOSES Admission Diagnoses: 1. Chronic pain due to malignant neoplastic disease 2. Dehydration 3. Anemia 4. Acute kidney injury superimposed on chronic kidney disease 5. Prostate cancer metastatic to bone 6. Metastatic malignant neuroendocrine tumor to liver 7. C. difficile diarrhea Discharge Diagnoses with Status of Each Condition: 1. C. difficile diarrhea: Improving 2. Paroxysmal atrial fibrillation: Resolved 3. Dehydration: Stable 4. Hyponatremia: Stable 5. Acute kidney injury superimposed on chronic kidney disease: Resolved 6. Anemia: Stable 7. Metastatic malignant neuroendocrine tumor to liver: Guarded 8. Metastatic prostate cancer to bone: Guarded 9. Chronic pain due to malignant neoplastic disease: Guarded 10. Spinal stenosis: Stable 11. Abnormal EKG: Stable 12. Severe protein calorie malnutrition: Stable - HPI History of Present Illness: Mr. Rafael Mishra is a very unfortunate 71-year-old white male who has a history significant for metastatic prostate cancer for which he has been treated at the [facility] clinic here at [facility]. Unfortunately about a week ago he was diagnosed with a second aggressive cancer, a neuroendocrine tumor not related to the prostate cancer, which is now in his liver and kidneys. Over the last few days the patient has been having diarrhea and has had decreased oral intake of fluids, and he has been becoming weaker daily. He came to the emergency department with complaints of weakness on 10/09/2017 was found to be hypotensive and very dehydrated. He was rehydrated and sent home with a caution to return if he should continue to feel weak or should his diarrhea persist. Of note is that the patient has not taken any Lomotil or Imodium for the diarrhea. The patient did go home but continued to feel weak and the diarrhea did continue so he came back to the emergency department later that evening. On re-presentation to the emergency department that evening patient was found to have an acutely elevated creatinine and his hemoglobin had dropped significantly in just 5 weeks, going from 14.3 to 8.8 on admission. It was therefore felt to be prudent to bring the patient in to the hospital, place him in an observation bed, where he could be rehydrated and his electrolyte abnormalities might be corrected. Shortly after admission stool cultures which were collected in the ED came back positive for Clostridium difficile and the patient was started on vancomycin. He was still somewhat sedated/obtunded and so Narcan was given which did correct his altered mental status and the patient "woke up". He has refused stronger opiates since that time but his pain has continued to increase. Earlier this evening the patient became "fed up" with everything and despite multiple visits from the hospitalist and Chasidy Bellamy, his palliative care provider, he decided to leave the hospital AGAINST MEDICAL ADVICE. He went home for couple of hours and has now returned to the hospital. - HOSPITAL COURSE Hospital Course: (1) C. difficile diarrhea Assessment/Plan: Stool culture is neg for bacteria (Shigell, salmonell, etc). BMs continued to decrease Patient left AMA on 10/11/17 but returned 2 hours later Cotninue PO, for a 10 day course today is day 7 of 10 Continue Florastor. WBC improved down from 20K to 10.7K Patient was very weak and seen by PT who recommended SNF Patient discharged to [facility] will continue vancomycin PO till (2) Paroxysmal A-fib Assessment/Plan: Afib started on 10/11/17 at 0200 over night this last night and he is in and out of it. When his HR is at it's highest, he is in Afib. He had an Echo done and showed normal resting LVEF and no pulmonary HTN. Trop negative. TSh normal at 1.44, T3 and T4 were normal HR stable after increasing Toprol XL to 75 mg His CHADS score = 0 (no CHF, HTN, Age>75, DM or Stroke hx), therefore no anticoagulation needed, but started a baby ASA daily. Will continue daily ASA and Toprol XL 75 mg daily after discharge (3) Dehydration Assessment/Plan: Resolved Patient eating well with regular diet (4) Hyponatremia Assessment/Plan: Remained stable after hydration (5) Acute kidney injury superimposed on chronic kidney disease Assessment/Plan: Resolved with IVFs Avoid nephrotoxic agents (6) Anemia Assessment/Plan: Labs show low iron levels and low folate. Will continue oral ferrous sulfate daily and oral folic acid daily (7) Metastatic malignant neuroendocrine tumor to liver Assessment/Plan: Patient being followed by Chasidy Tello and [facility] Patient wants to continue with Chemo PICC line placed for chemo will need to transition to a Port if he continues chemo shelter To receive chemo on 10/19/17 at [facility] (8) Chronic pain due to malignant neoplastic disease Assessment/Plan: Chasidy Bellamy (Palliative Care) following for pain meds and management. Currently he is on gabapentin 300 mg 3 times daily, morphine extended release 30 mg p.o. twice daily, oxycodone 5 mg q 4 hours prn for pain and dexamethasone 4 mg twice daily Pain is controlled with this regimen and will continue at [facility] (9) Spinal stenosis Assessment/Plan: Continue with pain management. Elective lumbar surgery is no longer planned. (10) Severe protein calorie malnutrition Assessment/Plan: Patient has nutritional intake of less than 50% of recommended intake for greater than 2 weeks, he has had a weight loss of 13% in 6 months and has significantly reduced functional capacity with increasing weakness. Ensure with meals 1 mg folic acid daily Iron supplements Stable - ALLERGIES Allergies/Adverse Reactions: Allergies Allergy/AdvReac Type Severity Reaction Status Date / Time No Known Drug Allergies Allergy Verified 05/26/16 11:30 - MEDICATIONS Home Medications: Ambulatory Orders Medication Instructions Recorded Confirmed Enzalutamide [Xtandi] 160 mg PO DAILY 03/30/17 10/12/17 Dexamethasone 4 mg PO 0700 09/28/17 10/12/17 Sennosides [Senna] 17.2 mg PO TID 09/28/17 10/12/17 Leuprolide [Lupron] 22.5 mg IM Q84D 10/09/17 10/12/17 Ferrous Sulfate 325 mg PO DAILYWM #30 tablet 10/16/17 Folic Acid 1 mg PO DAILY tablet 10/16/17 Gabapentin 300 mg PO TID #0 10/16/17 10/12/17 Metoprolol Succinate [Toprol Xl] 75 mg PO DAILY #0 tablet 10/16/17 Morphine ER 30 mg PO BID #30 tablet 10/16/17 Saccharomyces Boulardii [Florastor] 250 mg PO BID #8 capsule 10/16/17 Simethicone [Gas Relief] 80 mg PO QID #10 tab.chew 10/16/17 Vancomycin [Vancocin] 125 mg PO QID 4 Days #16 capsule 10/16/17 oxyCODONE [Roxicodone] 5 mg PO Q4HR PRN #30 tablet 10/16/17 - PHYSICAL EXAM AT DISCHARGE General Appearance: positive: No acute distress, Alert, Other (Very pale appearing but looks much better) Eyes Bilateral: positive: Normal inspection, PERRL, EOMI, No lid inflammation, Conjunctivae nml, No scleral icterus ENT: positive: ENT inspection nml, Pharynx nml, No signs of dehydration. negative: Purulent nasal drainage, Pharyngeal erythema, Oral lesions Neck: positive: Nml inspection, Thyroid nml, No JVD, Trachea midline. negative : Thyromegaly, Lymphadenopathy (R), Lymphadenopathy (L), Stiff neck, Carotid bruit, Tracheal deviation Respiratory: positive: Chest non-tender, No respiratory distress, Breath sounds nml. negative: Wheezes, Rales, Rhonchi Cardiovascular: positive: Regular rate & rhythm, No murmur, No gallop Peripheral Pulses: positive: 2+ Abdomen: positive: Tenderness (suprapelvic), Other (Distension ). negative: Guarding, Rebound, Hepatomegaly Back: positive: Nml inspection. negative: CVA tenderness (R), CVA tenderness (L ) Skin: positive: No rash, Warm, Dry, Pallor. negative: Cyanosis, Diaphoresis Extremities: positive: Non-tender, Full ROM, Nml appearance, No pedal edema Neurologic/Psychiatric: positive: Oriented x3, CN's nml (2-12), Motor nml, Sensation nml, Mood/affect nml - LABS Result Diagrams: 10/16/17 04:45 10/16/17 04:45 Other Lab Results: Laboratory Tests 10/13/17 10/13/17 10/13/17 05:30 08:30 08:30 WBC 14.7 H RBC 3.13 L Hgb 9.1 L Hct 27.4 L MCV 87.5 MCH 29.1 MCHC 33.2 RDW 15.5 H Plt Count 464 H MPV 7.5 Neut # (Auto) Not Reportable Lymph # (Auto) Not Reportable Catron # (Auto) Not Reportable Eos # (Auto) Not Reportable Baso # (Auto) Not Reportable Absolute Nucleated RBC Not Reportable Total Counted 100 Band Neuts % (Manual) 1 Abnorm Lymph % (Manual) 0 Metamyelocytes % 3 H Myelocytes % 2 H Nucleated RBC % Not Reportable Neutrophils # (Manual) 9.3 H Lymphocytes # (Manual) 4.1 H Monocytes # (Manual) 0.6 Eosinophils # (Manual) 0.0 Basophils # (Manual) 0.0 Nucleated RBCs Differential Comment MANUAL DIFFERENTIAL Platelet Estimate INCREASED (>450,000) Platelet Morphology PLATELET CLUMPING RBC Morph Micro Appear 1+ POLYCHROMASIA Sodium 134 L Potassium 4.7 Chloride 103 Carbon Dioxide 20 L Anion Gap 11.0 BUN 18 Creatinine 0.9 Estimated GFR (MDRD) 84 L Glucose 118 H Calcium 9.9 Ionized Calcium NO Phosphorus Magnesium Total Bilirubin 0.6 AST 27 ALT 15 Alkaline Phosphatase 133 H Total Protein 6.4 L Albumin 2.1 L Globulin 4.3 H Albumin/Globulin Ratio 0.5 L TSH 1.44 10/16/17 10/16/17 04:45 04:45 WBC 10.7 RBC 2.63 L Hgb 7.8 L Hct 23.1 L MCV 87.5 MCH 29.6 MCHC 33.8 RDW 15.0 Plt Count 332 MPV 7.6 Neut # (Auto) Not Reportable Lymph # (Auto) Not Reportable Catron # (Auto) Not Reportable Eos # (Auto) Not Reportable Baso # (Auto) Not Reportable Absolute Nucleated RBC Not Reportable Total Counted 100 Band Neuts % (Manual) 20 H Abnorm Lymph % (Manual) 0 Metamyelocytes % 3 H Myelocytes % 3 H Nucleated RBC % Not Reportable Neutrophils # (Manual) 8.3 H Lymphocytes # (Manual) 1.1 L Monocytes # (Manual) 0.5 Eosinophils # (Manual) 0.1 Basophils # (Manual) 0.0 Nucleated RBCs 2 Differential Comment MANUAL DIFFERENTIAL Platelet Estimate NORMAL (130-450,000) Platelet Morphology RBC Morph Micro Appear 1+ HYPOCHROMASIA Sodium 131 L Potassium 3.3 L Chloride 99 L Carbon Dioxide 23 Anion Gap 9.0 BUN 13 Creatinine 0.9 Estimated GFR (MDRD) 84 L Glucose 94 Calcium 9.2 Ionized Calcium NO Phosphorus 3.3 Magnesium 1.8 Total Bilirubin 0.6 AST 18 ALT 12 Alkaline Phosphatase 110 Total Protein 5.3 L Albumin 1.8 L Globulin 3.5 Albumin/Globulin Ratio 0.5 L TSH - DIAGNOSTIC IMAGING Diagnostic Imaging Results: Final report reviewed Diagnostic Imaging Results Comments: Chest x-ray 10/15/2017 Impression: Left upper extremity PICC tip overlies the cavoatrial junction Abdomen x-ray Impression: Nonobstructive bowel gas pattern. - FOLLOW UP Follow Up: Patient was admitted for C. difficile diarrhea and was treated with oral vancomycin. The patient has improved after treatment and is having less frequent bowel movements. He was also very dehydrated on presentation was given IV fluids and now appears better hydrated. The patient was found to be very weak during the hospitalization and physical therapy recommended subacute rehab. The patient is being sent to [facility] for fci and physical therapy. The patient is scheduled to restart chemotherapy on 2017. The patient will complete another 4 days of treatment for C. difficile with oral vancomycin. - TIME SPENT Time Spent in Discharge (Minutes): 55
[2017-10-16 13:35] VITALS: BP 133/79
== END 2017-10-16 13:49 | DRG 371 ==
LOC: MS2 22:11
PROVIDERS: ADMIT Hospitalist; ATTEND Internal Medicine
PROC: 02HV33Z Insertion of Infusion Device into Superior Vena Cava, Percutaneous Approach (ICD-10-PCS; principal; 2017-10-15)
PROC: B548ZZA Ultrasonography of Superior Vena Cava, Guidance (ICD-10-PCS; 2017-10-15)
DX: A04.72 Enterocolitis due to Clostridium difficile, not specified as recurrent (principal); E43 Unspecified severe protein-calorie malnutrition; C79.51 Secondary malignant neoplasm of bone; C75.9 Malignant neoplasm of endocrine gland, unspecified; C78.7 Secondary malignant neoplasm of liver and intrahepatic bile duct; N17.9 Acute kidney failure, unspecified; E87.1 Hypo-osmolality and hyponatremia; G89.3 Neoplasm related pain (acute) (chronic); C61 Malignant neoplasm of prostate; E86.0 Dehydration; D64.9 Anemia, unspecified; N18.9 Chronic kidney disease, unspecified; I48.0 Paroxysmal atrial fibrillation; R53.1 Weakness; Z66 Do not resuscitate
CPT/HCPCS: 36415; 71045; 80048; 80053; 83735; 84100; 84443; 85025; 99233

== ENCOUNTER 2017-10-18 10:35 | Outpatient (CLI) | payer MEDICARE, OTHER ==
--- NOTE | 2017-10-18 17:16 | CONSULTATION NOTE ---
Palliative Care Follow Up - Referral Referring Provider: Dr. 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 He has known bony metastases to his T8, and a mass in the pelvis. He is currently at the senior care facility, with the goal to increase his functional status. He was most recently acutely at [facility] from 10/08-10/11;10/11-10/16/2017 acutely ill with C. difficile, developed paroxysmal atrial fib, had severe dehydration, acute kidney injury superimposed on chronic disease, anemia, weight loss, and chronic pain due to malignant disease. Patient is still quite weak, is deconditioned, has poor activity tolerance is quite pale. Patient is still being treated with oral vancomycin, is eating and drinking and tolerating this fine. He reports good appetite. He is scheduled to start a new chemotherapy regimen on 10/19 after consulting with oncologist again. His pain is still only moderately controlled, but does have oxycodone for breakthrough pain, along with his long acting MS Contin 30 mg twice daily, and gabapentin 300 mg 3 times daily. Social History - Living Situation Living arrangement: At home Living Situation: With spouse/s.o., With family (son and grandson living in home ; in middle of remodel of bathroom to accomadate patient's return) Medications/Allergies - Medications Home Medications: Ambulatory Orders Medication Instructions Recorded Confirmed Dexamethasone 4 mg PO DAILY 09/28/17 10/18/17 Sennosides [Senna] 17.2 mg PO TID 09/28/17 10/18/17 Ferrous Sulfate 325 mg PO DAILYWM #30 tablet 10/16/17 10/18/17 Folic Acid 1 mg PO DAILY tablet 10/16/17 10/18/17 Gabapentin 300 mg PO TID #0 10/16/17 10/18/17 Metoprolol Succinate [Toprol Xl] 75 mg PO DAILY #0 tablet 10/16/17 10/18/17 Morphine ER 30 mg PO BID #30 tablet 10/16/17 10/18/17 Saccharomyces Boulardii [Florastor] 250 mg PO BID #8 capsule 10/16/17 10/18/17 Simethicone [Gas Relief] 80 mg PO QID #10 tab.chew 10/16/17 10/18/17 Vancomycin [Vancocin] 125 mg PO QID 4 Days #16 capsule 10/16/17 10/18/17 MDD finish 10/19 oxyCODONE [Roxicodone] 5 mg PO Q4HR PRN #30 tablet 10/16/17 10/18/17 - Allergies Allergies/Adverse Reactions: Allergies Allergy/AdvReac Type Severity Reaction Status Date / Time No Known Drug Allergies Allergy Verified 05/26/16 11:30 Review of Systems - Constitutional Constitutional: reports: Fatigue. denies: Fever, Chills - Ears, Nose & Throat Ears, Nose & Throat: reports: Dry mouth - Cardiovascular Cardiovascular: reports: Edema (LE edema noted by patient; improving). denies: Chest pain - Respiratory Respiratory: reports: SOB with exertion. denies: Cough, Wheezing, SOB at rest - Gastrointestinal Gastrointestinal: reports: Abdominal pain (much improved), Abdominal distention (improved), Good appetite, Other (soft BM today). denies: Nausea, Reflux/ heartburn (still belching but improved) - Genitourinary Genitourinary: reports: Frequency - Musculoskeletal Musculoskeletal: reports: Back pain, Stiffness, Muscle weakness, Assistive devices (using walker with PT), Transfer issues (able to transfer and use wheelchair) - Integumentary Integumentary: reports: Dryness - Neurological Neurological: reports: General weakness. denies: Numbness - Psychiatric Psychiatric: denies: Depression, Anxiety - Hematologic/Lymphatic Hematologic/Lymphatic: reports: Anemia, Recurrent infections (C diff) - All Other Systems All Other Systems: reports: Reviewed and negative Physical Exam - Vital Signs Pulse Rate: 96 (110 with activity/conversation) Respiratory Rate: 18 O2 Saturation: 95 (ra @ rest) Blood Pressure: 112/52 - Physical Exam General Appearance: positive: No acute distress. negative: Lethargic (much improved) Eyes Bilateral: positive: Normal inspection ENT: positive: No signs of dehydration Neck: positive: No JVD, Trachea midline Cardiovascular: positive: Irregular, Tachycardia Respiratory: positive: Diminished in bases. negative: Wheezes, Rales, Rhonchi Abdomen: positive: Soft, Nml bowel sounds, Tenderness (improved), Distended ( mild) Skin: positive: Pallor, Other (PICC exit site left no s/s infection) Extremities: positive: Pedal edema (trace bilat up to mid calf; feet on pillows) Neurologic/Psychiatric: positive: Oriented x3, Mood/affect nml, Weakness Palliative Care - POLST Patient has POLST: Yes POLST Status: DNR, Selective Treatment Pain: Pain improved, Location (Patient's most acute pain is in his upper thoracic area. It is exacerbated with reaching moving turning her weightbearing on walker. Does have known bone metastases in his T8 are shown on bone scan 06/2017. He also reports fairly severe pain down in the prostate area, this is more of a dull ache, more persistent without any exacerbation. Currently is on MS Contin 30 mg twice daily, has used oxycodone only sparingly maybe 1-24 hours over the last 2 days, as well as gabapentin 300 mg 3 times daily. He is on the dexamethasone 4 mg both for bone pain and for appetite stimulant.) Tiredness/Fatigue: Moderate (4-6) Drowsiness/Sedation: Mild (1-3) (improved; denies sedation; does tire easily) Nausea: None Depression: None Anxiety: None Performance Status: Patient is still to require assistance to the bathroom, he is able to stand by the bed use a urinal. He is awaiting to get "checked off" by the OT for transfers into his wheelchair. He is working with PT for ambulating short distances. He does report he still has significant weakness, but is feeling positive as he works to improve his functional status. I would still put him though still at a PPS of about 50% - Palliative Care Discussion: Patient is engaged, making eye contact, seems much more calm and relaxed. He has found his stay so far at the senior living satisfactory, reports the staff have been great, and he has no complaints. Did revisit his goals of care, he is quite clear given his history with his prostate cancer, he understands he has a limited life expectancy, this does give him a sense of sadness particularly related to his Katerin. He is feeling better, quite positive about moving forward at this point in time with chemotherapy, I suspect he will be better able to have a conversation with the oncologist tomorrow as he is much clear, is feeling less acutely ill, and is less lethargic. We did review his [address], he is quite clear he wants no heroic measures, had spoke with Dr. Bell and filled out do not attempt resuscitation, and selective treatment. He does not want to be intubated, we did discuss about medically assisted nutrition, he does not want anything that would prolong his suffering, or that involved tubes or artificial means of support. He had wanted to speak to Katerin about this, they did not finish the conversation. Did review this is not an acute decision that needs to be made right now, as long as we know how best to support him moving forward that we can revisit this at another time. His short-term goals are to become more functional, be able to return home, and finish affairs. 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 He has been recently hospitalized with acute kidney injury, C. difficile, dehydration, and has been improving steadily. Patient goals are to continue to move forward with chemotherapy, improve his functional status, and focus on quality of life. Palliative care to provide support for pain and symptom management and anticipatory guidance Recommendations/Counseling Done: 1. Pain of neoplastic origin. Patient doing fairly well on his MS Contin 30 mg twice daily, gabapentin 300 mg 3 times daily, dexamethasone 4 mg daily as well as the oxycodone 5 mg for breakthrough pain. His pain is mostly exacerbated with activity, encouraged to premedicate an hour prior to therapies, to be able to better tolerate and participate in his rehab program. Counseling reviewed regarding long-acting pain medication time-released morphine, with oxycodone for breakthrough, with a goal to be able to maximum assist pain relief but patient needs to take the oxycodone as he needs for his acute episodes of breakthrough pain. Patient did repeat understanding. Will encourage rehab staff to work with him regarding timing of pain medication as well. 2. Weight loss. Patient reports his appetite has much improved, will recommend daily weights. May need to add supplements given his pending chemotherapy, will continue to monitor. Patient does report he is hungry to eat , will continue the dexamethasone 4 mg daily for another week and reevaluate. 3. Deconditioning. Patient has been acutely ill over the last couple weeks, as well as limited mobility given his severe pain. Patient's goal is to regain some independence, is hoping to have enough energy to participate actively in rehab. 4. Fatigue, this is multifactorial in origin. Patient to get labs today, patient may benefit from transfusion to support patient's goals. We will continue to monitor. 5. Advanced care planning. Patient does appear to have clear understanding of his disease and disease prognosis, [facility] with major goals documented. Patient to meet with oncologist tomorrow, will review again benefits and burdens of moving forward with chemotherapy. Palliative care to continue to provide support and anticipatory guidance Time Spent: 40 minutes was given 50% of this done in counseling regarding pain and symptom management, coordination of care with clinic and Dr. Smart, will continue to follow patient for pain and symptom management and anticipatory guidance
== END 2017-10-18 10:36 | disposition home or self-care (01) ==
LOC: PC 10:35
PROVIDERS: ATTEND Nurse Practitioner Adult Health
DX: Z51.5 Encounter for palliative care (principal); G89.3 Neoplasm related pain (acute) (chronic); C61 Malignant neoplasm of prostate; C78.7 Secondary malignant neoplasm of liver and intrahepatic bile duct; C79.51 Secondary malignant neoplasm of bone; R63.4 Abnormal weight loss; R53.83 Other fatigue; R06.09 Other forms of dyspnea; M62.81 Muscle weakness (generalized); Z66 Do not resuscitate
CPT/HCPCS: 99310

== ENCOUNTER 2017-10-18 16:30 | Outpatient (CLI) | payer MEDICARE, OTHER ==
[2017-10-18 17:40] LABS: BASOPHILS % (AUTO) 0.4 %; EOSINOPHILS % (AUTO) 0.5 %; HGB - HEMOGLOBIN 7.3 g/dL (14.0-18.0); MEAN CORPUSCULAR HEMOGLOBIN 29.4 pg (27.0-31.0); MEAN CORPUSCULAR HGB CONC 33.3 g/dL (32.0-36.0); MEAN CORPUSCULAR VOLUME 88.1 fL (80.0-94.0); MEAN PLATELET VOLUME 7.9 fL (7.4-11.4); MONOCYTES % (AUTO) 3.6 %; NEUTROPHILS % (AUTO) 85.5 %; PLT - PLATELET COUNT 269 10^3/uL (130-450); RED BLOOD COUNT 2.47 10^6/uL (4.70-6.10); RED CELL DISTRIBUTION WIDTH 15.1 % (12.0-15.0); WHITE BLOOD COUNT 9.4 x10^3/uL (4.8-10.8)
[2017-10-18 17:54] LABS: ABNORMAL LYMPHS % (MANUAL) 0 %
[2017-10-18 17:56] LABS: ALBUMIN/GLOBULIN RATIO 0.6 (1.0-2.2); ALKALINE PHOSPHATASE 131 IU/L (42-121); ALT ALANINE AMINOTRANSFERASE 10 IU/L (10-60); AST ASPARTATE AMINOTRANSFERASE 23 IU/L (10-42); BILIRUBIN,TOTAL < 0.2 mg/dL (0.2-1.0); BUN - BLOOD UREA NITROGEN 9 mg/dL (6-20); CALCIUM 9.2 mg/dL (8.5-10.3); CARBON DIOXIDE - CO2 24 mmol/L (21-32); CHLORIDE 99 mmol/L (101-111); CREATININE 0.9 mg/dL (0.6-1.2); GFR - MDRD 84 (>89); GLUCOSE 124 mg/dL (70-100); SODIUM 134 mmol/L (135-145); TOTAL PROTEIN 5.6 g/dL (6.7-8.2)
[2017-10-18 19:23] LABS: BAND NEUTROPHILS % (MANUAL) 21 %; DIFFERENTIAL COMMENT MANUAL DIFFERENTIAL; LYMPHOCYTES # (MANUAL) 0.6 10^3/uL (1.5-3.5); LYMPHOCYTES % (MANUAL) 6 %; METAMYELOCYTES % (MANUAL) 4 %; MONOCYTES # (MANUAL) 0.2 10^3/uL (0.0-1.0); MYELOCYTES % (MANUAL) 3 %; NEUTROPHILS % (MANUAL) 64 %; PLATELET ESTIMATE, MANUAL NORMAL (130-450,000) (NORMAL); PLATELET MORPHOLOGY NORMAL APPEARANCE (NORMAL)
== END 2017-10-18 16:31 | disposition home or self-care (01) ==
LOC: LAB.R 16:30
DX: R79.89 Other specified abnormal findings of blood chemistry (principal); R68.89 Other general symptoms and signs
CPT/HCPCS: 80053; 85025

== ENCOUNTER 2017-10-25 08:00 | Outpatient (CLI) | payer MEDICARE, OTHER ==
[2017-10-25 17:27] LABS: ALBUMIN 1.9 g/dL (3.2-5.5); ALBUMIN/GLOBULIN RATIO 0.5 (1.0-2.2); ALKALINE PHOSPHATASE 104 IU/L (42-121); ALT ALANINE AMINOTRANSFERASE 10 IU/L (10-60); AST ASPARTATE AMINOTRANSFERASE 23 IU/L (10-42); BILIRUBIN,TOTAL < 0.2 mg/dL (0.2-1.0); BUN - BLOOD UREA NITROGEN 18 mg/dL (6-20); CARBON DIOXIDE - CO2 25 mmol/L (21-32); CHLORIDE 94 mmol/L (101-111); CREATININE 0.7 mg/dL (0.6-1.2); GFR - MDRD 112 (>89); GLUCOSE 114 mg/dL (70-100); SODIUM 130 mmol/L (135-145); TOTAL PROTEIN 5.4 g/dL (6.7-8.2)
[2017-10-25 17:30] LABS: BASOPHILS % (AUTO) 0.7 %; EOSINOPHILS % (AUTO) 0.7 %; HGB - HEMOGLOBIN 9.3 g/dL (14.0-18.0); LYMPHOCYTES % (AUTO) 40.7 %; MEAN CORPUSCULAR HEMOGLOBIN 29.3 pg (27.0-31.0); MEAN CORPUSCULAR HGB CONC 34.1 g/dL (32.0-36.0); MONOCYTES % (AUTO) 2.5 %; NEUTROPHILS % (AUTO) 55.4 %; PLT - PLATELET COUNT 87 10^3/uL (130-450); RED BLOOD COUNT 3.16 10^6/uL (4.70-6.10)
[2017-10-25 18:11] LABS: ABNORMAL LYMPHS % (MANUAL) 0 %; WHITE BLOOD COUNT 0.2 x10^3/uL (4.8-10.8)
[2017-10-25 18:12] LABS: BAND NEUTROPHILS % (MANUAL) 2 %; DIFFERENTIAL COMMENT MANUAL DIFFERENTIAL; LYMPHOCYTES # (MANUAL) 0.1 10^3/uL (1.5-3.5); LYMPHOCYTES % (MANUAL) 46 %; NEUTROPHILS # (MANUAL) 0.1 10^3/uL (1.5-6.6); NEUTROPHILS % (MANUAL) 48 %; PLATELET ESTIMATE, MANUAL DECREASED (<130,000) (NORMAL); PLATELET MORPHOLOGY NORMAL APPEARANCE (NORMAL); RBC MORPHOLOGY (MULTIPLE) NORMAL APPEARANCE (NORMAL)
== END 2017-10-25 08:01 | disposition home or self-care (01) ==
LOC: LAB.R 08:00
DX: C61 Malignant neoplasm of prostate (principal); R68.89 Other general symptoms and signs
CPT/HCPCS: 80053; 85025

== ENCOUNTER 2017-10-28 16:22 | Outpatient (CLI) | payer MEDICARE, OTHER ==
--- NOTE | 2017-10-28 17:35 | CONSULTATION NOTE ---
Palliative Care Follow Up - Referral Referring Provider: Dr. 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 He is currently in the senior living facility, has received his first round of carboplatinum and etoposide, and is severely neutropenic. 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 Was started on vancomycin 125 mg 4 times daily with some improvement, still has abdominal distention, abdominal bloating, diarrhea is slowing down. Patient denies any nausea, but has anorexia, and does appear dehydrated at time of visit. Patient remains somewhat lethargic, this fluctuates, he is able to easily arouse, and engage in conversation though is somewhat slow to respond. Also developed shortness of breath over the weekend, is on oxygen at 1.5 L with a O2 sat of 94%. His room was extremely hot his temp was 100.4, he has not had any chills, currently on exam after cooling down the room he has at 99.4. His pain is moderately controlled, he is on MS Contin 30 mg twice daily, gabapentin 300 mg 3 times daily, and has appreciated the addition of Biofreeze to his scapula in T8 area. He does have oxycodone 5 mg for breakthrough pain, is only using this about 1 time a day. Patient had reported to the oncologist his pain is uncontrolled, at the time of visit he denies uncontrolled pain nor any change he would want as far as titrating his pain medications up at this point. He is somewhat isolated in his room, his does assist him with food and fluids when she is there, he has very poor appetite little intake and needs encouragement to take fluids. Social History - Living Situation Living arrangement: [facility] Support System: Patient usually resides at home, which is a small cabin with his , son and grandson. They are currently remodeling with the goal to transition him home.She does visit daily, but is only there for a few hours, is concerned this patient often does not want to bother others nor make his needs known when he is sleepy or lethargic Medications/Allergies - Medications Home Medications: Ambulatory Orders Medication Instructions Recorded Confirmed Dexamethasone 4 mg PO DAILY 09/28/17 10/28/17 Ferrous Sulfate 325 mg PO DAILYWM #30 tablet 10/16/17 10/28/17 Folic Acid 1 mg PO DAILY tablet 10/16/17 10/28/17 Gabapentin 300 mg PO TID #0 10/16/17 10/28/17 Morphine ER 30 mg PO BID #30 tablet 10/16/17 10/28/17 Saccharomyces Boulardii [Florastor] 250 mg PO BID #8 capsule 10/16/17 10/28/17 Simethicone [Gas Relief] 80 mg PO QID #10 tab.chew 10/16/17 10/28/17 oxyCODONE [Roxicodone] 5 mg PO Q4HR PRN #30 tablet 10/16/17 10/28/17 Aspirin 81 mg PO DAILY 10/28/17 10/28/17 Biofreeze 1 applic TOP TID 10/28/17 House Bowel Program 1 appful PO DAILY PRN 10/28/17 LORazepam [Ativan] 0.5 mg PO Q6HR PRN 10/28/17 10/28/17 Loperamide [Imodium] 2 mg PO Q4HR PRN 10/28/17 10/28/17 Metoprolol Succinate [Toprol Xl] 100 mg PO DAILY 10/28/17 10/28/17 Nitroglycerin [Nitrostat] 0.4 mg PO Q5MIN PRN 10/28/17 10/28/17 Ondansetron [Ondansetron Odt] 4 mg PO Q4HR PRN 10/28/17 10/28/17 Prochlorperazine Maleate 10 mg PO Q6HR PRN 10/28/17 10/28/17 [Compazine] Vancomycin [Vancocin] 125 mg PO QID 10/28/17 10/28/17 - Allergies Allergies/Adverse Reactions: Allergies Allergy/AdvReac Type Severity Reaction Status Date / Time No Known Drug Allergies Allergy Verified 05/26/16 11:30 Review of Systems - Constitutional Constitutional: reports: Fatigue, Fever (99.4), Weakness, Poor appetite - Ears, Nose & Throat Ears, Nose & Throat: reports: Dental pain. denies: Mouth lesions - Cardiovascular Cardiovascular: reports: Irregular heart rate, Exertional dyspnea, Decr. exercise tolerance, Other (PICC line intact; decided no portacath at this time) - Respiratory Respiratory: reports: Cough (reports some phelgm unable to bring up; not bothersome or frequent at this time), Orthopnea, SOB with exertion, Other (on oxygen since weekend) - Gastrointestinal Gastrointestinal: reports: Abdominal distention, Diarrhea (slowing down), Bloating, Poor appetite, Early satiety. denies: Nausea, Vomiting - Genitourinary Genitourinary: reports: Other (using urinal) - Musculoskeletal Musculoskeletal: reports: Back pain, Stiffness, Muscle weakness, Assistive devices (using walker with PT) - Integumentary Integumentary: reports: Other (perirectal excoriation from diarrhea) - Neurological Neurological: reports: General weakness, Memory problems, Slurred speech - Psychiatric Psychiatric: denies: Depression, Anxiety - Hematologic/Lymphatic Hematologic/Lymphatic: reports: Anemia, Recurrent infections (c diff) - All Other Systems All Other Systems: reports: Reviewed and negative Physical Exam - Vital Signs Temperature: 99.4 C Pulse Rate: 96 Respiratory Rate: 18 O2 Saturation: 94 (1.5 liter; 90 on room air) Blood Pressure: 141/62 - Physical Exam General Appearance: positive: Mild distress Eyes Bilateral: positive: Other (keeps eyes closed most of visit) ENT: positive: Dry mucous membranes. negative: Pharyngeal erythema Neck: positive: Trachea midline. negative: Lymphadenopathy (R), Lymphadenopathy (L) Cardiovascular: positive: Irregularly irregular, Tachycardia Respiratory: positive: Diminished in bases. negative: Wheezes, Rales, Rhonchi Abdomen: positive: Abnml bowel sounds (hyperactive), Tenderness, Distended, Taut Skin: positive: Other (perirectal irritation with redness/candidiasis antifungal cream applies;) Extremities: positive: Pedal edema (trace) Neurologic/Psychiatric: positive: Oriented x3, Weakness, Flat affect, Other ( difficult to engage; aroused and answered simple questions; reports no change from baseline; staff report was clear and best day was Wednesday) Palliative Care - POLST Patient has POLST: Yes POLST Status: DNR, Selective Treatment Pain: Pain unchanged, Location (upper thoracic area; lower back and pelvis) Tiredness/Fatigue: Severe (7-10) Drowsiness/Sedation: Moderate (4-6) Nausea: None Depression: None Anxiety: None Dyspnea: Moderate (4-6) Anorexia: Severe (7-10) Sleep: Sleeps well Constipation: No Performance Status: Patient able to stand at the bedside to void, does need assistance with transfers, contact assist and supervision for ambulation. With decreased energy and increased shortness of breath as well as neutropenic precautions, participation in therapies has been limited. - Palliative Care Discussion: Patient had received oxycodone by an hour prior to my visit, was nodding off and not participatory in the conversation. Did provide support to at the bedside, is aware of the seriousness of his illness, Does feel like she is saying goodbye to her best friend. Has been difficult as far as advocating for his care needs, patient has been quite passive. She does work with him when she is there as far as pushing fluids, helping him with his nutrition, but is working on getting the household ready for transition home. She is hoping for the best, and is appropriately grieving. 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 He presents with severe neutropenia, high risk for further sequela is a related to this, most likely with recurrent C diff infection with increased bloating; tautness; diarrhea and response to Vancomycin.Symptom burden remains high with anorexia, diarrhea, acute on chronic pain, perirectal irritation, and dehydration. Palliative care to continue provide support through treatment, transitioning to hospice when alignment with patient goals. Recommendations/Counseling Done: 1. Neutropenia. Patient developing small nonproductive at this point in time low -grade temp at 99 4, breath sounds are diminished in bases, but no wheezing rales or rhonchi. O2 sats on 1 and half liters 94% patient denies respiratory distress. Would put it at a low threshold her chest x-ray if this worsened or sats decreased. Will follow up with Dr. Benitez given patient's recurrent C. diff and severe neutropenia threshold to add GSF support next round. 2. Anorexia. Patient is on med Pass for increased calories, dexamethasone for both pain and appetite stimulant, bringing in food to entice patient to increase calorie intake. Will order weekly weights to better monitor patient's underlying nutritional status. 3. Pain of neoplastic origin. Patient on MS Contin 30 mg twice daily, gabapentin 300 mg 3 times daily and using oxycodone for breakthrough, did encourage patient to be using oxycodone for uncontrolled pain, has not used enough to initiate titration yet of current pain medications. The addition of Biofreeze has been helpful, will go ahead and schedule this as patient does forget to ask for and finds it improves his upper back discomfort. 4. Diarrhea. Most likely multifactorial in combination with chemotherapy, neutropenia with this is high suspicion of C. difficile, has had some response to the vancomycin. Does have perirectal irritation as a result, staff are applying antifungal cream with each bowel movement and kathie-care. Area examined , reports does look improved. 5. Fatigue, this could is multifactorial in origin. Patient does have anemia, poor activity tolerance, and presents with symptoms of dehydration. Patient did receive transfusion last week with improvement of energy, will continue to monitor. May want to repeat labs next week. 6. Dehydration. Patient does sleep, this is related to his pain and fatigue and does not initiate eating or drinking without encouragement. He has decreased intake over last 24-48 hours, has does not initiate when he is without encouragement drinking on a regular basis. does encourage him while she is there, will put orders in to encourage fluid intake for each shift for total of 750 ml a.m. and p.m. and 500 ml at night to better track and encourage intake. 7. Advanced care planning. Patient not able at time of visit to engage and family conference. Did spend time with , goal is for her to get remodeling done so can bring patient home. Remains hopeful for a good response from treatment, does recognize he is quite fragile. Will continue to provide support and further explore goals of care at next visit. Time Spent: 60 minutes was given 50% of this done in counseling, coordination of care with clinical staff, and anticipatory guidance
== END 2017-10-28 16:23 | disposition home or self-care (01) ==
LOC: PC 16:22
PROVIDERS: ATTEND Nurse Practitioner Adult Health
DX: Z51.5 Encounter for palliative care (principal); G89.3 Neoplasm related pain (acute) (chronic); C61 Malignant neoplasm of prostate; C78.7 Secondary malignant neoplasm of liver and intrahepatic bile duct; C77.9 Secondary and unspecified malignant neoplasm of lymph node, unspecified; C79.51 Secondary malignant neoplasm of bone; D70.1 Agranulocytosis secondary to cancer chemotherapy; T45.1X5A Adverse effect of antineoplastic and immunosuppressive drugs, initial encounter; F50.89 Other specified eating disorder; K52.1 Toxic gastroenteritis and colitis; E86.0 Dehydration; R33.8 Other retention of urine; Z66 Do not resuscitate; Z79.899 Other long term (current) drug therapy; Z79.891 Long term (current) use of opiate analgesic
CPT/HCPCS: 99310

== ENCOUNTER 2017-10-28 22:03 | Inpatient (IN) | payer MEDICARE, OTHER ==
[2017-10-28] MEDS ORDERED: LORazepam 0.5 MG TABLET PO PRN (22:08)
[2017-10-28] MEDS ORDERED: oxyCODONE 5 MG TABLET PO PRN (22:08)
[2017-10-28] MEDS ORDERED: NITROGLYCERIN SL 0.4 MG TABLET SL PRN (22:08)
[2017-10-28] MEDS ORDERED: PROCHLORPERAZINE 10 MG/2 ML VIAL IVP PRN (22:10)
[2017-10-28] MEDS ORDERED: PROMETHAZINE 25 MG/1 ML VIAL IM PRN (22:10)
[2017-10-28] MEDS ORDERED: ONDANSETRON 4 MG/2 ML VIAL IVP PRN (22:10)
[2017-10-28] MEDS ORDERED: SODIUM CHLORIDE 0.9% 1,000 ML IV SCH (23:00)
[2017-10-28] MEDS ORDERED: SODIUM CHLORIDE 0.9% 1,000 ML IV ONE (23:29)
--- NOTE | 2017-10-28 23:32 | HISTORY & PHYSICAL EXAMINATION ---
Chief Complaint - Chief Complaint Chief Complaint: Generalized weakness, fatigue and diarrhea History of Present Illness - Admitted From Admitted From:: [facility] - History Obtained From Records Reviewed: Yes History obtained from: Patient and patients Exam Limitations: None - History of Present Illness HPI Comment/Other: Patient is a 71-year-old gentleman with metastatic prostate cancer, castration refractory. 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 The patient is currently on Lupron every 3 months and Xtandi which she has been taking since February 2017. The patient was originally diagnosed with Valerie score 9 prostate cancer with positive pelvic lymph node metastasis. He failed bicalutamide and ketoconazole in the past. A bone scan in June 2017 revealed abnormal uptake at T8 vertebral bodies. The patient was found to have a right pelvic mass compressing the right ureter, this is status post stent placement for right hydronephrosis. 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 He deals with a great deal of pain secondary to his cancer and has been on chronic pain medication. Recently he has developed a failure to thrive at home and developed dehydration with weight loss. He was admitted to [facility] with Clostridium difficile colitis from 10/11 till 10/16. The patient was treated with PO vancomycin for his C. difficile till 10/19/17. At that point his stools were formed and symptoms seemed to have completely resolved. During the hospitalization the patient was also found to have atrial fibrillation. He has been at [facility] [place] [facility], physical therapy and occupational therapy treatment since his discharge from the hospital. The patient started a new round of chemotherapy with carboplatin and etoposide on 10/20/2017 he received 3 days of treatment and appeared to tolerate them well. He saw Dr. Benitez in follow-up on 10/26/2017 at which time the patient stated that he was feeling well despite having had fatigue and decreased appetite during the week of his chemotherapy he was feeling better. He did complain at that time of pain in his bilateral shoulder blades radiating down to his lower back. The patient received Lupron on 2017 with a plan of following up in 2 weeks for a second cycle of chemotherapy. The patient was found to have pancytopenia with severe neutropenia at that time. Later that evening after returning to [facility] the patient and his state that the patient began having diarrhea similar to what he had been having when he had C. difficile. The patient states that the diarrhea was explosive, foul- smelling and very persistent. Over the last 2 days this diarrhea has continued. The patient has had poor oral intake despite his trying desperately to get him as much fluid and food as possible. She states that she has been mixing him protein drinks and trying to get him to eat a little bites of food. The patient was started on oral vancomycin at [facility] yesterday for this C. difficile. The patient became increasingly weak over the last 2 days. He has had increasing abdominal bloating, abdominal pain and tenderness. Today the patient had a low-grade fever of 100.4 at [facility] and given his severe neutropenia there was concern from nursing staff at [facility] as well as Dr. Smart that the patient may need hospitalization. The patient states that today he could barely lift himself out of bed he was so weak. He stated that he felt lightheaded and was continuing to have pain. The patient also had to be placed on 2 L of oxygen at [facility] as he was becoming hypoxic. The decision was made to transfer the patient to the hospital as he appeared to be having severe C. difficile and needed IV hydration and electrolyte replacement at this time. The patient was directly admitted to the medical patrick. Prior to leaving [facility] the patient states he had another explosive episode of diarrhea. On presentation to the medical [facility] the patient had a low-grade fever of 37.5, was tachycardic with a heart rate of 138 and hypotensive with a blood pressure of 87/56. The patient was immediately given a 1 L fluid bolus with which the patient's blood pressure did improve to 107/47. The patient remained persistently tachycardic with a heart rate of 140. EKG revealed the patient was in atrial fibrillation with a rapid ventricular rate. Patient's blood was sent for lab work which revealed a pancytopenia with an absolute neutrophil count of 0, hemoglobin of 5.7 and a platelet count of 6000. The patient was also found to have hyponatremia of 127, hypokalemia of 3.3 and acute kidney injury with a creatinine of 2.9 up from 0.7 just 4 days earlier. The patient's lactic acid was within normal limits. The patient also was found to be hypomagnesemic with a magnesium of 1.6. The patient's LFTs were elevated including a total bilirubin of 3.8 which was normal just 4 days earlier. Patient appeared to be septic with recurrent C. difficile infection. However given his low-grade fever and severe neutropenia it was possible that the sepsis could be from other source therefore blood cultures were drawn and chest x-ray was done. Chest x-ray did not reveal any obvious infiltrate to show pneumonia. The patient's urine analysis and had yet to be collected. The patient was started on broad-spectrum antibiotics with vancomycin and cefepime until blood cultures return. The patient was also continued on vancomycin oral for treatment of C. difficile. The patient was given IV fluids and electrolyte replacements. The patient appears to be very ill and it was communicated with his that there is a possibility he may not make it through this hospitalization. History - Past Medical History Cardiovascular: reports: Atrial fibrillation Respiratory: reports: None Endocrine/Autoimmune: reports: None GI: reports: C.difficile, Chronic constipation, Other : reports: Other Musculoskeletal: reports: Chronic back pain MRSA Hx?: No Other Past Medical History: Metastatic malignant neurocompression tumor to liver. Metastatic prostate cancer to bone. Chronic pain due to malignant neoplastic disease. 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 The patient was adopted and has no knowledge of his family history. Living arrangement: At home Living Situation: With spouse/s.o. Social History Notes: Until recently the patient was living with his in their small home on [address]. They also live with their son and 20-year- old grandson in the same home. The patient's has PTSD and social anxiety disorder. The patient was previously living in [place] when he was diagnosed with prostate cancer. He states that the whole ordeal was very traumatizing for him and he had and his decided to move up to [place] to get away. He states that he inherited a cabin here on [address] and used to spend some time up here when he was younger and starting at the [employer]. The patient is a graduate of the [employer]. He does not currently smoke cigarettes, drink alcohol or use any illicit drugs. - POLST Patient has POLST: Yes POLST Status: DNR Meds/Allgy - Home Medications Home Medications: Ambulatory Orders Medication Instructions Recorded Confirmed Dexamethasone 4 mg PO DAILY 09/28/17 10/28/17 Ferrous Sulfate 325 mg PO DAILYWM #30 tablet 10/16/17 10/28/17 Folic Acid 1 mg PO DAILY tablet 10/16/17 10/28/17 Gabapentin 300 mg PO TID #0 10/16/17 10/28/17 Morphine ER 30 mg PO BID #30 tablet 10/16/17 10/28/17 Saccharomyces Boulardii [Florastor] 250 mg PO BID #8 capsule 10/16/17 10/28/17 Simethicone [Gas Relief] 80 mg PO QID #10 tab.chew 10/16/17 10/28/17 oxyCODONE [Roxicodone] 5 mg PO Q4HR PRN #30 tablet 10/16/17 10/28/17 Aspirin 81 mg PO DAILY 10/28/17 10/28/17 Biofreeze 1 applic TOP TID 10/28/17 House Bowel Program 1 appful PO DAILY PRN 10/28/17 LORazepam [Ativan] 0.5 mg PO Q6HR PRN 10/28/17 10/28/17 Loperamide [Imodium] 2 mg PO Q4HR PRN 10/28/17 10/28/17 Metoprolol Succinate [Toprol Xl] 100 mg PO DAILY 10/28/17 10/28/17 Nitroglycerin [Nitrostat] 0.4 mg PO Q5MIN PRN 10/28/17 10/28/17 Ondansetron [Ondansetron Odt] 4 mg PO Q4HR PRN 10/28/17 10/28/17 Prochlorperazine Maleate 10 mg PO Q6HR PRN 10/28/17 10/28/17 [Compazine] Vancomycin [Vancocin] 125 mg PO QID 10/28/17 10/28/17 - Allergies Allergies/Adverse Reactions: Allergies Allergy/AdvReac Type Severity Reaction Status Date / Time No Known Drug Allergies Allergy Verified 05/26/16 11:30 Review of Systems - Other Findings Other Findings: A comprehensive review of systems was performed the pertinent positives and negatives are stated above in the HPI and the remainder of the review of systems is negative. Exam - Vital Signs Reviewed Vital Signs: Yes - Physical Exam General Appearance: positive: Alert, Moderate distress (In pain all over), Lethargic, Other (Pale appearing and looks very ill) Eyes Bilateral: positive: Normal inspection, PERRL, EOMI, No lid inflammation, Other (conjuntival pallor and scleral icterus) ENT: positive: ENT inspection nml, Pharynx nml, Dry mucous membranes. negative : Purulent nasal drainage, Pharyngeal erythema, Oral lesions Neck: positive: Nml inspection, Thyroid nml, No JVD, Trachea midline. negative : Thyromegaly, Lymphadenopathy (R), Lymphadenopathy (L), Stiff neck, Carotid bruit, Tracheal deviation Respiratory: positive: Chest non-tender, No respiratory distress, Rales (Bases) Cardiovascular: positive: Irregularly irregular, Tachycardia Peripheral Pulses: positive: 2+ Abdomen: positive: No organomegaly, Tenderness (Lower abdomen periumbilical and suprapubic), Abnml bowel sounds (Hyperactive), Other (Distended). negative: Guarding, Rebound Back: positive: Nml inspection. negative: CVA tenderness (R), CVA tenderness (L ) Skin: positive: Color nml, No rash, Warm, Dry, Pallor. negative: Cyanosis, Diaphoresis Extremities: positive: Non-tender, Full ROM, Nml appearance, Pedal edema ( Bilateral LE trace edema) Neurologic/Psychiatric: positive: Oriented x3, CN's nml (2-12), Motor nml, Sensation nml, Mood/affect nml, Other (Lethargic) Conclusion/Plan - Problem List (1) Sepsis Conclusion/Plan: Patient presented with low-grade fever 37.5, tachycardia with heart rate of 138 , hypotension with a blood pressure of 87/56 and severe neutropenia with a neutrophil count of 0. The patient has endorgan damage with acute kidney injury and creatinine of 2.9, lethargy and hyperbilirubinemia with albumin of 3.8. The cause of the sepsis is likely due to C difficile infection however given the patient's severe neutropenia we cannot completely rule out the possibility of a bacteremia or other source of infection. The patient's chest x -ray did not reveal any obvious large consolidation or infiltrate. UA is still pending. Plan: Treat with broad-spectrum IV antibiotics vancomycin and cefepime Await blood culture results if negative consider stopping antibiotics Awaiting urine analysis Treat C. difficile infection with oral vancomycin 125 mg 4 times daily Aggressively give IV fluids and electrolyte replacement. Consider giving patient Neupogen, talk to patient's oncologist Qualifiers: Sepsis type: sepsis due to unspecified organism Qualified Code(s): A41.9 - Sepsis, unspecified organism (2) C. difficile diarrhea Conclusion/Plan: Patient appears to have recurrence of C. difficile diarrhea. Patient had complete resolution of symptoms after being treated with oral vancomycin for 10 days. The patient has now had recurrence of diarrhea over the last 2 days. This is led to increasing fatigue and generalized weakness. The patient was hypotensive on presentation to [facility] today with extreme dehydration and generalized weakness. The patient was also septic on presentation. Plan: Patient will be treated with oral vancomycin 125 mg 4 times daily We will aggressively give the patient IV fluids Aggressive electrolyte replacement Consider CT of the abdomen and pelvis if symptoms continue or abdominal pain becomes worse. (3) Pancytopenia Conclusion/Plan: The patient has pancytopenia with neutrophil count of 0, hemoglobin of 5.7 and platelet count of 6. It appears that this is likely secondary to side effects from chemotherapy. Given the severity of the patient's anemia and thrombocytopenia the patient will need transfusions of packed RBCs and platelets. Given that the patient is septic with C. difficile and has a neutrophil count of 0 we will also likely need to give the patient Neupogen. Plan: Transfuse 2 units packed RBCs and monitor hemoglobin if hemoglobin less than 7 transfuse Transfuse 2 units of platelets and monitor platelet count if platelet count less than 10 transfuse Talk to patient's oncologist about giving Neupogen and monitor neutrophil count. (4) Atrial fibrillation with RVR Conclusion/Plan: On presentation the patient is tachycardic with heart rate of 138. The patient was placed on telemetry and heart rate has been persistently in the 140s-150s. The patient continues to have borderline blood pressures of 90s-100 systolic. Given these blood pressures I am reluctant to treat the patient with IV metoprolol or IV diltiazem. The patient's heart rate is continued to be elevated despite getting IV fluids. Plan: Start patient on a IV digoxin load and placed on p.o. digoxin Consider giving patient IV diltiazem or metoprolol if blood pressure improves. Patient has echocardiogram from 10/09/2017 which shows normal ejection fraction. Patient has normal TSH from 10/13/2017. Monitor on telemetry (5) JUAN ALBERTO (acute kidney injury) Conclusion/Plan: The patient has acute kidney injury with a creatinine of 2.9. This is likely secondary to prerenal azotemia from severe dehydration due to diarrhea. Also there may be contribution from ongoing sepsis. There is possibility that this could be an indication of spread of the patient's cancer. Currently there is no indication for dialysis. Plan: Give aggressive IV fluids Monitor patient's creatinine Monitor urine output Monitor electrolytes Consider renal ultrasound or CT if creatinine is not improving. Avoid nephrotoxic agents (6) Hyperbilirubinemia Conclusion/Plan: Patient has hyper bilirubinemia with a bilirubin of 3.8 which is elevated from his baseline of less than 0.2 just 4 days earlier. The patient's hyperbilirubinemia could be secondary to multiorgan failure from sepsis or could be an indication that the patient's cancer is spreading. Plan: We will monitor the patient's bilirubin daily if it continues to rise or is not improving we will consider getting a CT scan of the abdomen and pelvis to look for spread of his cancer. (7) Metabolic encephalopathy Conclusion/Plan: On presentation patient is very lethargic. This is likely secondary to sepsis, ongoing C. difficile infection and dehydration. Patient will be treated for all of the above with IV fluids, IV antibiotics and oral antibiotics. Patient is expected to improve with improvement in his condition. (8) Hypokalemia Conclusion/Plan: Patient has hypokalemia on presentation with a potassium 3.3. This is likely secondary to diarrhea. Patient will be given IV potassium replacement and we will continue to monitor the patient's potassium. (9) Chronic pain due to malignant neoplastic disease Conclusion/Plan: The patient has chronic pain secondary to his metastatic prostate cancer and neuroendocrine cancer. Recently the patient has had worsening pain in his scapular area. The patient is on oxycodone, extended release morphine, gabapentin and dexamethasone for pain relief. We will continue these medications while the patient is hospitalized however his pain appears to be out of control despite this regimen. The patient will also be given IV morphine as needed for breakthrough pain. Plan: Consult palliative care (10) Hyponatremia Conclusion/Plan: Patient has hyponatremia on presentation with a sodium of 127. Patient appears to have hypovolemic hyponatremia. The patient will be given IV fluids and will continue to monitor the patient's sodium. (11) Hypomagnesemia Conclusion/Plan: The patient's magnesium is 1.6 on presentation. This is likely secondary to dehydration and diarrhea. The patient will get magnesium replacement while he is hospitalized. We will continue to monitor the patient's magnesium. (12) Metastatic malignant neuroendocrine tumor to liver Conclusion/Plan: Patient has metastatic malignant neuroendocrine tumor to liver. The patient's bilirubin is significantly elevated from his baseline today. This could be a sign that the patient's cancer is spreading. This could also be secondary to his ongoing sepsis and multiorgan failure. Plan: Talk to patient's oncologist consider CT of the abdomen and pelvis Patient is scheduled for chemotherapy in 2 weeks however at this point the patient is not well enough to go forward with further chemotherapy. (13) Prostate cancer metastatic to bone Conclusion/Plan: Patient has metastatic prostate cancer to the bone which causes severe pain. The patient just underwent chemotherapy last week and now was hospitalized for sepsis and C. difficile. It appears the patient is not tolerating chemotherapy well. The patient has made it clear that he wants to be DNR/DNI and does not want any heroic measures. However talking to him today he does want to continue with treatment and try to make it to his next chemotherapy. He would like to receive IV fluids electrolyte replacement and antibiotics to see if he can get better over the next week. We will talk to the patient's oncologist to consider a CT of his abdomen and pelvis and also discuss giving Neupogen. - Lab Results Lab results reviewed: Yes Fish Bones: 10/29/17 02:10 10/29/17 01:05 Other Lab Results: Laboratory Results WBC 0.2 x10^3/uL (4.8-10.8) L* 10/29/17 02:10 RBC 1.94 10^6/uL (4.70-6.10) L 10/29/17 02:10 Hgb 5.7 g/dL (14.0-18.0) L* 10/29/17 02:10 Hct 16.8 % (42.0-52.0) L* 10/29/17 02:10 MCV 86.8 fL (80.0-94.0) 09/07/18 02:10 MCH 29.5 pg (27.0-31.0) 10/29/17 02:10 MCHC 34.0 g/dL (32.0-36.0) 10/29/17 02:10 RDW 14.8 % (12.0-15.0) 10/29/17 02:10 Plt Count 6 10^3/uL (130-450) L* 10/29/17 02:10 MPV 9.1 fL (7.4-11.4) 10/29/17 02:10 Neut # (Auto) Not Reportable 10/29/17 02:10 Lymph # (Auto) Not Reportable 10/29/17 02:10 Bryan # (Auto) Not Reportable 10/29/17 02:10 Eos # (Auto) Not Reportable 10/29/17 02:10 Baso # (Auto) Not Reportable 10/29/17 02:10 Absolute Nucleated RBC Not Reportable 10/29/17 02:10 Total Counted 50 10/29/17 02:10 Band Neuts % (Manual) 0 % (0-10) 10/29/17 02:10 Abnorm Lymph % (Manual) 0 % 10/29/17 02:10 Nucleated RBC % Not Reportable 10/29/17 02:10 Neutrophils # (Manual) 0.0 10^3/uL (1.5-6.6) L* 10/29/17 02:10 Lymphocytes # (Manual) 0.2 10^3/uL (1.5-3.5) L 10/29/17 02:10 Monocytes # (Manual) 0.0 10^3/uL (0.0-1.0) 10/29/17 02:10 Eosinophils # (Manual) 0.0 10^3/uL (0-0.7) 10/29/17 02:10 Basophils # (Manual) 0.0 10^3/uL (0-0.1) 10/29/17 02:10 Differential Comment MANUAL DIFFERENTIAL 10/29/17 02:10 Platelet Estimate DECREASED (<130,000) (NORMAL) 10/29/17 02:10 RBC Morph Micro Appear 1+ HYPOCHROMASIA (NORMAL) 1+ MICROCYTOSIS (NORMAL) 10/29/17 02:10 RBC Morph Micro Appear 1+ HYPOCHROMASIA (NORMAL) 1+ MICROCYTOSIS (NORMAL) 10/29/17 02:10 Sodium 127 mmol/L (135-145) L 10/29/17 01:05 Potassium 3.3 mmol/L (3.5-5.0) L 10/29/17 01:05 Chloride 92 mmol/L (101-111) L 10/29/17 01:05 Carbon Dioxide 22 mmol/L (21-32) 10/29/17 01:05 Anion Gap 13.0 (6-13) 10/29/17 01:05 BUN 28 mg/dL (6-20) H 10/29/17 01:05 Creatinine 2.9 mg/dL (0.6-1.2) H 10/29/17 01:05 Estimated GFR (MDRD) 22 (>89) L 10/29/17 01:05 Glucose 153 mg/dL (70-100) H 10/29/17 01:05 Lactic Acid 1.5 mmol/L (0.5-2.2) 10/29/17 01:05 Calcium 7.2 mg/dL (8.5-10.3) L 10/29/17 01:05 Phosphorus 3.0 mg/dL (2.5-4.6) 10/29/17 01:05 Magnesium 1.6 mg/dL (1.7-2.8) L 10/29/17 01:05 Total Bilirubin 3.8 mg/dL (0.2-1.0) H 10/29/17 01:05 AST 71 IU/L (10-42) H 10/29/17 01:05 ALT 26 IU/L (10-60) 10/29/17 01:05 Alkaline Phosphatase 143 IU/L (42-121) H 10/29/17 01:05 Total Protein 5.8 g/dL (6.7-8.2) L 10/29/17 01:05 Albumin 1.8 g/dL (3.2-5.5) L 10/29/17 01:05 Globulin 4.0 g/dL (2.1-4.2) 10/29/17 01:05 Albumin/Globulin Ratio 0.5 (1.0-2.2) L 10/29/17 01:05 - Diagnostic Imaging Results Diagnostic Imaging Results: positive: Final report reviewed Diagnostic Imaging Results Comments: Chest x-ray Impression: 1. Small lung volumes with mild cardiomegaly and possible pulmonary vascular congestion. 2. Mild left basilar atelectasis or infiltrate with trace left effusion. - EKG Results EKG Interpreted Independently: Yes EKG Findings: Atrial fibrillation with a rapid ventricular rate. Core Measures - Anticipated LOS I expect patient to be DC'd or transferred within 96 hours.: Yes - DVT/VTE - Prophylaxis VTE/DVT Prophylaxis med ordered at admit?: Yes
[2017-10-29] MEDS ORDERED: MORPHINE 2 MG/ML CARPUJECT IVP PRN (00:23)
[2017-10-29] MEDS: SODIUM CHLORIDE FLUSH 0.9% 10 ML SYRINGE IVP SCH ×2 (00:38→09:10)
[2017-10-29 01:14] LABS: RED CELL DISTRIBUTION WIDTH 14.8 % (12.0-15.0)
[2017-10-29] MEDS ORDERED: MIN OIL/DIMETHICON/COCONUT OIL 92 GM TUBE TOP PRN (01:18)
[2017-10-29 01:23] LABS: ALBUMIN 1.8 g/dL (3.2-5.5); ALBUMIN/GLOBULIN RATIO 0.5 (1.0-2.2); BILIRUBIN,TOTAL 3.8 mg/dL (0.2-1.0); CALCIUM 7.2 mg/dL (8.5-10.3); CREATININE 2.9 mg/dL (0.6-1.2); MAGNESIUM 1.6 mg/dL (1.7-2.8); TOTAL PROTEIN 5.8 g/dL (6.7-8.2)
[2017-10-29] MEDS ORDERED: MAGNESIUM SULFATE 2 GRAM 2 GM/50 ML BAG IV ONE (01:24)
[2017-10-29 02:22] LABS: EOSINOPHILS % (AUTO) 28.3 %; LYMPHOCYTES % (AUTO) 57.8 %; MEAN CORPUSCULAR HEMOGLOBIN 29.5 pg (27.0-31.0); MEAN CORPUSCULAR VOLUME 86.8 fL (80.0-94.0); MEAN PLATELET VOLUME 9.1 fL (7.4-11.4); MONOCYTES % (AUTO) 13.1 %; NEUTROPHILS % (AUTO) 0.8 %; RED BLOOD COUNT 1.94 10^6/uL (4.70-6.10)
[2017-10-29 02:38] LABS: HGB - HEMOGLOBIN 5.7 g/dL (14.0-18.0); WHITE BLOOD COUNT 0.2 x10^3/uL (4.8-10.8)
[2017-10-29 02:39] LABS: PLT - PLATELET COUNT 6 10^3/uL (130-450)
[2017-10-29 02:40] LABS: ABNORMAL LYMPHS % (MANUAL) 0 %; BAND NEUTROPHILS % (MANUAL) 0 %
--- NOTE | 2017-10-29 02:46 | XRAY Report ---
Reason: Hypoxia, neutropenia Procedure Date: 10/28/2017 Accession Number: [id number] / [id number] Procedure: XR - Chest 1 View X-Ray CPT Code: 71768 FULL RESULT: EXAM: CHEST RADIOGRAPHY EXAM DATE: 10/28/2017 11:49 PM. CLINICAL HISTORY: Hypoxia, neutropenia. COMPARISON: 10/15/2017. TECHNIQUE: 1 view. FINDINGS: Lungs/Pleura: Small lung volumes. Mild left basilar atelectasis or infiltrate with trace left effusion. Possible pulmonary vascular congestion. No pneumothorax. Mediastinum: Within exam limitations, heart appears mildly enlarged. Aortic atherosclerosis. Other: Left PICC line tip in the mid SVC. Osteopenia. IMPRESSION: 1. Small lung volumes with mild cardiomegaly and possible pulmonary vascular congestion. 2. Mild left basilar atelectasis or infiltrate with trace left effusion. [facility]
[2017-10-29] MEDS: SODIUM CHLORIDE FLUSH 0.9% 10 ML SYRINGE IVP PRN ×4 (02:52→05:11)
[2017-10-29] MEDS: POTASSIUM CHLOR 10 MEQ/100 ML 10 MEQ/100 ML BAG IV SCH ×4 (02:52→09:09)
[2017-10-29 03:16] LABS: LYMPHOCYTES # (MANUAL) 0.2 10^3/uL (1.5-3.5); LYMPHOCYTES % (MANUAL) 94 %; NEUTROPHILS % (MANUAL) 4 %
[2017-10-29 03:17] LABS: DIFFERENTIAL COMMENT MANUAL DIFFERENTIAL; PLATELET ESTIMATE, MANUAL DECREASED (<130,000) (NORMAL)
[2017-10-29] MEDS ORDERED: SODIUM CHLORIDE 0.9% 500 ML IV ONE ×2 (03:28→04:54)
[2017-10-29] MEDS ORDERED: VANCOMYCIN PER PHARMACY 1 GM in SODIUM CHLORIDE 0.9% 250 ML IV SCH (04:00)
[2017-10-29] MEDS ORDERED: CEFEPIME 2 GM in SODIUM CHLORIDE 0.9% MINIBAG 100 ML IV SCH (04:00)
[2017-10-29] MEDS ORDERED: DIGOXIN 500 MCG/2 ML AMP IVP SCH ×2 (04:00→10:00)
[2017-10-29] MEDS ORDERED: VANCOMYCIN INJ 1.5 GM in SODIUM CHLORIDE 0.9% 500 ML IV SCH (04:30)
[2017-10-29] MEDS ORDERED: VANCOMYCIN 1 GM VIAL ONE (04:53)
[2017-10-29] MEDS ORDERED: GABAPENTIN 300 MG CAPSULE PO SCH (06:00)
[2017-10-29] MEDS ORDERED: SODIUM CHLORIDE FLUSH 0.9% 10 ML SYRINGE ONE ×3 (06:06→06:18)
[2017-10-29] MEDS: diltiaZEM INJ 5 MG/ML VIAL ONE ×2 (06:08→06:12)
[2017-10-29] MEDS: FUROSEMIDE 20 MG/2 ML VIAL IVP ONE ×2 (06:10→06:12)
[2017-10-29] MEDS ORDERED: FUROSEMIDE 20 MG/2 ML VIAL IVP ONE (06:10)
[2017-10-29] MEDS ORDERED: METOPROLOL 5 MG/5 ML VIAL IVP ONE ×2 (06:18→06:20)
[2017-10-29] MEDS ORDERED: ALBUTEROL NEB 2.5 MG/3 ML INH PRN (06:37)
[2017-10-29] MEDS ORDERED: LORazepam 0.5 MG TABLET PO PRN (06:37)
[2017-10-29] MEDS ORDERED: IPRATROPIUM 0.2 MG/ML NEB INH PRN (06:37)
[2017-10-29 06:41] LABS: EOSINOPHILS % (AUTO) 5.4 %; MEAN CORPUSCULAR HEMOGLOBIN 29.4 pg (27.0-31.0); MEAN CORPUSCULAR HGB CONC 33.5 g/dL (32.0-36.0); MEAN CORPUSCULAR VOLUME 87.9 fL (80.0-94.0); MEAN PLATELET VOLUME 10.3 fL (7.4-11.4); MONOCYTES % (AUTO) 13.4 %; NEUTROPHILS % (AUTO) 4.2 %; RED BLOOD COUNT 1.95 10^6/uL (4.70-6.10); RED CELL DISTRIBUTION WIDTH 14.9 % (12.0-15.0)
[2017-10-29] MEDS ORDERED: FUROSEMIDE 40 MG/4 ML VIAL IVP STA (06:43)
[2017-10-29] MEDS ORDERED: METOPROLOL 5 MG/5 ML VIAL IVP STA (06:43)
[2017-10-29] MEDS ORDERED: diltiaZEM INJ 5 MG/ML VIAL IVP STA (06:43)
[2017-10-29] MEDS ORDERED: diltiaZEM INJ 5 MG/ML VIAL IVP ONE (06:43)
[2017-10-29 06:47] LABS: HGB - HEMOGLOBIN 5.7 g/dL (14.0-18.0); WHITE BLOOD COUNT 0.1 x10^3/uL (4.8-10.8)
[2017-10-29 06:48] LABS: PLT - PLATELET COUNT 5 10^3/uL (130-450)
[2017-10-29 06:49] LABS: ABNORMAL LYMPHS % (MANUAL) 0 %; BAND NEUTROPHILS % (MANUAL) 0 %
[2017-10-29 07:20] LABS: NEUTROPHILS % (MANUAL) 2 %
[2017-10-29 07:21] LABS: DIFFERENTIAL COMMENT MANUAL DIFFERENTIAL; LYMPHOCYTES # (MANUAL) 0.1 10^3/uL (1.5-3.5); LYMPHOCYTES % (MANUAL) 92 %; PLATELET ESTIMATE, MANUAL DECREASED (<130,000) (NORMAL)
--- NOTE | 2017-10-29 07:26 | XRAY Report ---
Reason: Respiratory failure Procedure Date: 10/29/2017 Accession Number: [id number] / [id number] Procedure: XR - Chest 1 View X-Ray CPT Code: 61373 FULL RESULT: EXAM: CHEST RADIOGRAPHY EXAM DATE: 10/29/2017 07:03 AM. CLINICAL HISTORY: Respiratory failure. COMPARISON: CHEST 1 VIEW 10/28/2017. TECHNIQUE: 1 view. FINDINGS: Lungs/Pleura: Bilateral interstitial opacities appear slightly increased compared to prior. No pneumothorax or large pleural effusion. Mediastinum: Borderline enlargement of the cardiac silhouette and tortuous, atherosclerotic thoracic aorta as before. Other: Left upper extremity PICC tip remains in the lower SVC. IMPRESSION: Slightly increased interstitial opacities may reflect mild pulmonary edema. Otherwise no significant change from prior. [facility]
[2017-10-29] MEDS ORDERED: SODIUM CHLORIDE 0.9% 1,000 ML IV ONE ×2 (07:36→07:45)
[2017-10-29] MEDS ORDERED: FERROUS SULFATE 325 MG TABLET PO SCH (08:00)
[2017-10-29] MEDS ORDERED: SIMETHICONE CHEW 80 MG TABLET PO SCH (09:00)
[2017-10-29] MEDS ORDERED: POLYETHYLENE GLYCOL 3350 17 GM PACKET PO SCH (09:00)
[2017-10-29] MEDS ORDERED: METOPROLOL SUCCINATE 50 MG TABLET PO SCH (09:00)
[2017-10-29] MEDS ORDERED: VANCOMYCIN 125 MG CAPSULE PO SCH (09:00)
[2017-10-29] MEDS ORDERED: ASPIRIN CHEW 81 MG TABLET PO SCH (09:00)
[2017-10-29] MEDS ORDERED: FOLIC ACID 1 MG TABLET PO SCH (09:00)
[2017-10-29] MEDS ORDERED: DEXAMETHASONE 4 MG TABLET PO SCH (09:00)
[2017-10-29] MEDS ORDERED: MORPHINE ER 15 MG TABLET PO SCH (09:00)
[2017-10-29] MEDS ORDERED: FAMOTIDINE 20 MG TABLET PO SCH (09:00)
[2017-10-29] MEDS ORDERED: SACCHAROMYCES BOULARDII 250 MG CAPSULE PO SCH (09:00)
[2017-10-29] MEDS ORDERED: CHLORHEXIDINE GLUCONATE 15 ML UDC PO SCH (09:00)
[2017-10-29] MEDS ORDERED: ENOXAPARIN 40 MG/0.4 ML SYRINGE SUBQ SCH (09:00)
[2017-10-29 09:06] LABS: ABG PCO2 29 mmHg (34-45); ABG PH 7.42 (7.35-7.45); ABG PO2 89 mmHg (80-100); ABG TCO2 18.9 MMOL/L (21.0-29.0)
[2017-10-29 09:07] LABS: ABG OXYGEN SATURATION 96 % (94-98); ALLEN TEST POSITIVE
[2017-10-29] MEDS ORDERED: diphenhydrAMINE 25 MG CAPSULE PO STA (10:55)
[2017-10-29] MEDS ORDERED: ACETAMINOPHEN 325 MG TABLET PO PRN (10:55)
[2017-10-29] MEDS ORDERED: diphenhydrAMINE INJ 50 MG/ML VIAL IVP STA (11:18)
[2017-10-29] MEDS ORDERED: ACETAMINOPHEN 1,000 MG/100 ML 100 ML IV ONE (11:18)
[2017-10-29 12:02] VITALS: BP 95/62
[2017-10-29] MEDS ORDERED: DIGOXIN 125 MCG TABLET PO SCH (18:00)
--- NOTE | 2017-10-29 21:27 | DISCHARGE SUMMARY ---
Physician: Shannon Nolasco MD DATE OF ADMISSION: 10/28/2017 DATE OF DISCHARGE: 10/29/2017 PRIMARY CARE PROVIDER: Pramod Grigsby. DISCHARGE DIAGNOSES: 1. Sepsis with multisystem organ failure. 2. Acute respiratory failure with hypoxia. 3. Enterocolitis, due to Clostridium difficile, recurrent. 4. Pancytopenia from chemotherapy. 5. Chronic atrial fibrillation with rapid ventricular response. 6. Acute kidney failure. 7. Abnormal bilirubin. 8. Metabolic encephalopathy. 9. Hypokalemia. 10. Neoplasm-related pain, acute on chronic. 11. Hyponatremia. 12. Hypomagnesemia. 13. Neuroendocrine tumor of the liver. 14. Metastatic prostate cancer. PRINCIPAL PROCEDURES: 1. Blood cultures x2. Preliminary report show gram-negative bacilli in both bottles. MRSA negative. 2. Chest x-ray with small lung volumes with mild cardiomegaly and possible pulmonary vascular congestion. Mild left basilar atelectasis or infiltrate with left trace effusion. MEDICATIONS: During his stay included: 1. Tylenol IV. 2. Benadryl IV. 3. Albuterol inhaler. 4. Cefepime 2 grams every 12. 5. Lanoxin 350 mcg once and then followed by 175 mcg every 6 hours and then 125 p.o. daily. 6. Cardizem 10 mg IV push once, as well as 15 mg IV push once. 7. Pepcid 20 mg po bid. 8. Magnesium sulfate 2 grams. 9. Lopressor 5 mg IV push once. HOSPITAL COURSE: This is an unfortunate, 71-year-old, white male who returns to our hospital after being admitted here 10/09/2017. He then left [place] 2017, but later that night returned back on 10/11/2017. For his 10/09/2017 through 10/11/2017 visit, he was here with C. diff enterocolitis, severe dehydration. This is in the face of someone who has terminal metastatic prostate cancer, as well as a neuroendocrine tumor. He is followed by Katrina Benitez. Please refer to the detailed history and physical performed by Dr. Fabio Bell on admission, which was less than 24 hours. After his 10/11/2017 visit, he went to a retirement facility and completed 10 days of oral vancomycin. Discharge was on 10/16/2017, and he completed vancomycin approximately 10/19/2017. 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 He started cycle 1 of carboplatin and etoposide and received Wednesday, Wednesday, Wednesday treatment. He actually had felt like he was doing well. He was very tired, but he horrible illness that he had 10/11/2017, was much improved. At the retirement facility, he became acutely ill with more diarrhea, more abdominal pain, and he was directly admitted from the retirement facility to our service, since he was well known to us. Overnight, he was in multisystem organ failure. Again, please refer to Dr. Bell's history and physical. On the morning of transfer to [facility], I re-evaluated the patient and found him to be continuing to be hypotensive and requiring more and more oxygen. He is a DO NOT RESUSCITATE and is not to be intubated and not to receive chest compressions. He had a BiPAP mask on. I started him on Levophed. was at the bedside and requested transfer to a higher level of care. She initially identified [facility] as the hospital she wanted, but [facility] felt it would be more appropriate for the patient to be transferred to [place], since that is where he was receiving his oncology care. I asked his if that was okay with her to be transferred to [place] instead of [facility], and she was amenable to that. The patient did receive packed cells and platelets before transfer to [place] because of his pancytopenia. He was transferred in poor condition with a very poor prognosis. PHYSICAL EXAMINATION: Temperature is 37.5. Pulse 121. Blood pressure 95/52. Respirations 10. On BiPAP. He was a very pale, almost sallow skinned, elderly man. At times, he would wake up and try and be alert enough and requested a pen and paper to write on, but he was never able to complete a sentence. He would be able to answer yes/no. Neck veins were distended. He had coarse lung sounds diffusely with shallow slow respirations. Diffusely cachectic with rib cage prominent and skeletal structure prominent. PMI normally placed. Heart rate irregularly irregular. The abdomen was scaphoid, soft, mild grimacing of pain in the suprapubic and epigastric area, but no rebound or guarding. Extremities were remarkable for severe muscle tissue loss. He would occasionally uses hands for purposeful movement. He did not have edema. Some ecchymosis on his skin. Greater than 30 minutes was spent in coordinating discharge in this unfortunate gentleman. cc: Pramod Grigsby MD TD: 10/29/2017 20:05 MTDD
[2017-10-30] MEDS ORDERED: CEFEPIME 1 GM in SODIUM CHLORIDE 0.9% MINIBAG 100 ML IV SCH (05:00)
== END 2017-10-29 12:40 | disposition short-term general hospital (02) | DRG 871 ==
LOC: MS2 23:15 → ICU 10-29 06:43
PROVIDERS: ADMIT Internal Medicine; ATTEND Specialist
PROC: 30233R1 Transfusion of Nonautologous Platelets into Peripheral Vein, Percutaneous Approach (ICD-10-PCS; principal; 2017-10-29)
PROC: 30233N1 Transfusion of Nonautologous Red Blood Cells into Peripheral Vein, Percutaneous Approach (ICD-10-PCS; 2017-10-29)
DX: A41.51 Sepsis due to Escherichia coli [E. coli] (principal); J96.01 Acute respiratory failure with hypoxia; G93.41 Metabolic encephalopathy; D61.810 Antineoplastic chemotherapy induced pancytopenia; A04.72 Enterocolitis due to Clostridium difficile, not specified as recurrent; N17.9 Acute kidney failure, unspecified; E87.1 Hypo-osmolality and hyponatremia; C78.7 Secondary malignant neoplasm of liver and intrahepatic bile duct; R17 Unspecified jaundice; C79.51 Secondary malignant neoplasm of bone; A41.89 Other specified sepsis; R65.20 Severe sepsis without septic shock; C61 Malignant neoplasm of prostate; T45.1X5A Adverse effect of antineoplastic and immunosuppressive drugs, initial encounter; I48.2 Chronic atrial fibrillation; E87.6 Hypokalemia; G89.3 Neoplasm related pain (acute) (chronic); E83.42 Hypomagnesemia; Z66 Do not resuscitate; Z51.5 Encounter for palliative care; Z79.891 Long term (current) use of opiate analgesic; Z79.899 Other long term (current) drug therapy
CPT/HCPCS: 36415; 36600; 71045; 80053; 80162; 82803; 83605; 83735; 84100; 85025; 86850; 86900; 86901; 86920; 87040; 87077; 87150; 87181; 93005; 94660

== ENCOUNTER 2017-10-28 23:04 | Outpatient (CLI) | payer MEDICARE, OTHER | END 2017-10-28 23:05 | disposition critical access hospital (66) | LOC: EMS 23:04 | PROVIDERS: ATTEND Surgery | DX: R50.9 Fever, unspecified (principal); R19.7 Diarrhea, unspecified | CPT/HCPCS: A0425; A0429 ==